=== PATIENT | male | born 1950 | race Caucasian/White ===

== ENCOUNTER 2020-04-30 06:25 | Day surgery (SDC) | payer MEDICARE, SELFPAY ==
[2020-04-22 16:07] VITALS: BMI 27.2
--- NOTE | 2020-04-23 13:11 | HO.ANESPROP2 ---
Documented by User: Yoli Bolanos 04/30/20 15:34 HPI - Anesthesia Eval Consult details Narrative: 69yo M for [facility] End[facility] Past Medical History Medical History LOVE (acute kidney injury) Anemia Roberts esophagus Chronic kidney disease Depression Dialysis patient Elevated cholesterol GERD (gastroesophageal reflux disease) HTN (hypertension) Hydronephrosis Surgical History Surgical History Hx of colonoscopy Hx of endoscopy Social History Social History Are you a primary child care centre manager to a significant other at home: No Do you presently have visiting nurse or other home services: No Smoking Status: Former smoker Smoking Quit Date: 11 years ago Second Hand Smoke Exposure: No Use of substances other than those prescribed or required for medical reasons: No Have you been hit, kicked, punched, or otherwise hurt by someone within the past year? If so, by whom?: No Advance Directives: No Advance Directives Information Provided: No Advance Directives on File: No Recently lost weight without trying: No Meds Allergies Allergy/AdvReac Type Severity Reaction Status Date / Time clindamycin AdvReac Nausea and Verified 04/22/20 14:18 Vomiting Home Medications Medication Instructions Recorded Confirmed Type albuterol sulfate [ProAir HFA] 2 puff INHALATION Q6H PRN 04/22/20 04/22/20 History amlodipine 1 tab PO BEDTIME 04/22/20 04/22/20 History atorvastatin 1 tab PO DAILY 04/22/20 04/22/20 History carvedilol 1 tab PO BID 04/22/20 04/22/20 History clonazepam 1 tab PO BEDTIME PRN 04/22/20 04/22/20 History famotidine 1 tab PO BID 04/22/20 04/22/20 History mupirocin TOPICAL DAILY 04/22/20 History prednisone 5 mg PO DAILY 04/22/20 04/22/20 History sevelamer carbonate 2 tab PO TID 04/22/20 04/22/20 History torsemide 1 tab PO DAILY 04/22/20 04/22/20 History Exam Exam Date and Time: April 23, 2020 1311 Height,Weight and Vital Signs: Height 5 ft 10 in Weight 86.183 kg Pertinent Lab Results Pertinent Lab Results: Laboratory Tests 11/30/19 08:42 WBC 10.0 Hgb 8.1 L Hct 25.1 L Plt Count 236 Assessment and Plan Assessment Anesthesia Assessment: Chart Reviewed Documented by User: Katherine Rodriges 05/01/20 08:04 PMFSH Past Medical History Medical History LOVE (acute kidney injury) Anemia Roberts esophagus Chronic kidney disease Depression Dialysis patient Elevated cholesterol GERD (gastroesophageal reflux disease) HTN (hypertension) Hydronephrosis Surgical History Surgical History Hx of colonoscopy Hx of endoscopy Social History Social History Are you a primary child care centre manager to a significant other at home: No Do you presently have visiting nurse or other home services: No Smoking Status: Former smoker Smoking Quit Date: 11 years ago Second Hand Smoke Exposure: No Use of substances other than those prescribed or required for medical reasons: No Have you been hit, kicked, punched, or otherwise hurt by someone within the past year? If so, by whom?: No Advance Directives: No Advance Directives Information Provided: No Advance Directives on File: No Recently lost weight without trying: No Meds Allergies Allergy/AdvReac Type Severity Reaction Status Date / Time clindamycin AdvReac Nausea and Verified 04/22/20 14:18 Vomiting Home Medications Medication Instructions Recorded Confirmed Type albuterol sulfate [ProAir HFA] 2 puff INHALATION Q6H PRN 04/22/20 04/22/20 History amlodipine 1 tab PO BEDTIME 04/22/20 04/22/20 History atorvastatin 1 tab PO DAILY 04/22/20 04/22/20 History carvedilol 1 tab PO BID 04/22/20 04/22/20 History clonazepam 1 tab PO BEDTIME PRN 04/22/20 04/22/20 History famotidine 1 tab PO BID 04/22/20 04/22/20 History mupirocin TOPICAL DAILY 04/22/20 History prednisone 5 mg PO DAILY 04/22/20 04/22/20 History sevelamer carbonate 2 tab PO TID 04/22/20 04/22/20 History torsemide 1 tab PO DAILY 04/22/20 04/22/20 History Exam Airway Mallampati Class: II Heart: RRR Lungs: CTA Assessment and Plan Assessment Anesthesia Assessment: Anesthesia Plan Discussed and Chart Reviewed Final Anesthetic Review NPO: Yes ASA Class: III Final Preanesthetic Review: Meds/Allgs Chart Reviewed, Consent Obtained/Reviewed and Anes Risks/Benef Reviewed Anesthetic Plan Anesthetic Plan: MAC: Disposition: Standard PACU
[2020-04-30 06:43] VITALS: BP 135/81; PULSE 77; RESP 18; TEMP 36.1; O2SAT 97
[2020-04-30] MEDS: 0.9 % Sodium Chloride 1,000 ML 50 ML IVCONT (06:56)
--- NOTE | 2020-04-30 07:26 | HO.ANESPROP2 ---
FORMERLY [facility], 1928–1983 Past Medical History Medical History LOVE (acute kidney injury) Anemia Roberts esophagus Chronic kidney disease Depression Dialysis patient Elevated cholesterol GERD (gastroesophageal reflux disease) HTN (hypertension) Hydronephrosis Surgical History Surgical History Hx of colonoscopy Hx of endoscopy Social History Social History Are you a primary care assistant to a significant other at home: No Do you presently have visiting nurse or other home services: No Smoking Status: Former smoker Smoking Quit Date: 11 years ago Second Hand Smoke Exposure: No Use of substances other than those prescribed or required for medical reasons: No Have you been hit, kicked, punched, or otherwise hurt by someone within the past year? If so, by whom?: No Advance Directives: No Advance Directives Information Provided: No Advance Directives on File: No Recently lost weight without trying: No Meds Allergies Allergy/AdvReac Type Severity Reaction Status Date / Time clindamycin AdvReac Nausea and Verified 04/22/20 14:18 Vomiting Home Medications Medication Instructions Recorded Confirmed Type albuterol sulfate [ProAir HFA] 2 puff INHALATION Q6H PRN 04/22/20 04/22/20 History amlodipine 1 tab PO BEDTIME 04/22/20 04/22/20 History atorvastatin 1 tab PO DAILY 04/22/20 04/22/20 History carvedilol 1 tab PO BID 04/22/20 04/22/20 History clonazepam 1 tab PO BEDTIME PRN 04/22/20 04/22/20 History famotidine 1 tab PO BID 04/22/20 04/22/20 History mupirocin TOPICAL DAILY 04/22/20 History prednisone 5 mg PO DAILY 04/22/20 04/22/20 History sevelamer carbonate 2 tab PO TID 04/22/20 04/22/20 History torsemide 1 tab PO DAILY 04/22/20 04/22/20 History Exam Exam Date and Time: April 30, 2020 0726 Height,Weight and Vital Signs: Height 5 ft 10 in Weight 86.183 kg Last Vital Signs Temp 96.9 F 04/30/20 06:43 Pulse 77 04/30/20 06:43 Resp 18 04/30/20 06:43 BP 135/81 04/30/20 06:43 Pulse Ox 97 04/30/20 06:43 Airway Mallampati Class: II TM Dist: >3cm Neck ROM: Full Heart: RRR Lungs: CTA Assessment and Plan Assessment Anesthesia Assessment: Anesthesia Plan Discussed and Chart Reviewed Final Anesthetic Review NPO: Yes ASA Class: III Final Preanesthetic Review: Meds/Allgs Chart Reviewed, Consent Obtained/Reviewed and Anes Risks/Benef Reviewed Patient Risk: Intermediate Procedure Risk: Intermediate Anesthetic Plan Anesthetic Plan: MAC: Disposition: Standard PACU
[2020-04-30 07:27] LABS: Anion Gap 14 (12-20); Carbon Dioxide 25 mmol/L (22-29); Chloride 105 mmol/L (96-108); Sodium 140 mmol/L (135-145)
--- NOTE | 2020-04-30 07:34 | MHC.SHP ---
Pre-Procedural Eval Section B Chief Complaint: Fecal Abnormalities Details of Present Illness: See H&P no changes Relevant Family History (Specify if Yes): No Relevant Social History: None Present Medications: see Short Stay Collaborative assessment Medical History: No relevant PMH (see H&P no changes) History of Previous Operations: No relevant previous surgery Allergies: Allergies Allergy/AdvReac Type Severity Reaction Status Date / Time clindamycin AdvReac Nausea and Verified 04/22/20 14:18 Vomiting Review of Systems Sugical H&P ROS: Negative: Constitution, Cardiovascular, Respiratory, Neurological, Psychiatric, Hem-Onc, Allergic/Immunologic, Gastrointestinal, Genitourinary, Musculoskeletal, Integumentary, Endocrine and Eyes/Ears/Nose/Throat Exam Surgical H&P Exam: Normal: HEENT, Normal: Heart, Normal: Lungs, Normal: Extremities, Normal: Abdomen, Normal: Skin and Normal: Neurological Plan Diagnosis/Plan: Unchanged I have reviewed the history and physical and performed a pertinent physical examination on my patient. No changes have occurred unless specified.
[2020-04-30 08:18] VITALS: BP 85/54; PULSE 72; RESP 16; TEMP 36.1; O2SAT 97
--- NOTE | 2020-04-30 08:22 | PM.OP ---
Brief Operative Note Date of Service: 04/30/20 Pre-op diagnosis: abnormal findings in stool Post-op diagnosis: same (barretts esophagus, colon polyps) Procedure: EGD colonoscopy Surgeon: Galo Pang Anesthesia: MAC Estimated blood loss (mL): 2 Pathology: other (bxs egj, esophagus 38 cm, polyp 65,60 and 30 cm) Condition: stable Disposition: PACU
[2020-04-30 08:33] VITALS: BP 109/67; PULSE 73; RESP 18; TEMP 36.1; O2SAT 96
--- NOTE | 2020-04-30 09:01 | OP_ITS ---
SURGEON: Galo Pang MD INDICATIONS: 1. Abnormal findings in the stool. 2. Roberts's esophagus. PREOPERATIVE DIAGNOSIS: POSTOPERATIVE DIAGNOSIS: PROCEDURE PERFORMED: ESTIMATED BLOOD LOSS: COMPLICATIONS: ANESTHESIA: ASSISTANTS: SPECIMENS: PROCEDURES PERFORMED: 1. Upper endoscopy with biopsy. 2. Colonoscopy to the terminal ileum with biopsy and snare polypectomy. MEDICATIONS: Monitored anesthesia care. DESCRIPTION OF PROCEDURE: History and physical performed. The risks and benefits of the procedure were explained to the patient. Informed consent was obtained. The patient is placed in the left lateral decubitus position. The Olympus video gastroscope was introduced into the esophagus, stomach, and duodenum. Examination was performed. The scope was removed. He tolerated the procedure well and was repositioned for colonoscopy. A digital rectal exam was performed and was found to be normal. The Olympus pediatric video colonoscope was introduced into the rectum and advanced to the cecum without difficulty. The cecum was identified by transillumination, palpation, and identification of ileocecal valve. Examination was performed. The scope was removed. He tolerated both procedures well and was returned to recovery area in stable condition. FINDINGS: UPPER ENDOSCOPY: Esophagus: There was a small area of Roberts's esophagus extending from the EG junction up to about 38 cm. Biopsies were obtained from the EG junction and at 38 cm. There were no raised areas or ulcerated areas. There was a small hiatal hernia. Stomach: The stomach showed no evidence of masses, ulcers, or polyps. Antral biopsies were obtained to rule out H. pylori. Duodenum: The bulb and second portion were normal. COLONOSCOPY: The terminal ileum was normal. The quality of the prep was good. Three polyps were identified and removed. The first with biopsy forceps, located at 65 cm. A second with a cold snare at 60 cm and the third at 30 cm with a cold snare. All measured less than 10 mm. There was scattered diverticulosis throughout the colon. Retroflexed examination showed small internal hemorrhoids. IMPRESSION: 1. Roberts's esophagus. 2. Colon polyps. RECOMMENDATION: Follow up biopsy results. MD CODY Quiles/ELMER / [id number] MTDD
== END 2020-04-30 09:23 | disposition home or self-care (01) ==
PROVIDERS: Nurse Practitioner; PCP Nurse Practitioner Family; Visit Provider Internal Medicine Gastroenterology
PROC: (CPT 45385; principal; 2020-04-30 07:30)
DX: R19.5 Other fecal abnormalities (principal); D12.4 Benign neoplasm of descending colon; K63.5 Polyp of colon; K57.30 Diverticulosis of large intestine without perforation or abscess without bleeding; K64.8 Other hemorrhoids; K22.70 Barrett's esophagus without dysplasia; K44.9 Diaphragmatic hernia without obstruction or gangrene; K21.9 Gastro-esophageal reflux disease without esophagitis; D64.9 Anemia, unspecified; I12.0 Hypertensive chronic kidney disease with stage 5 chronic kidney disease or end stage renal disease; N18.5 Chronic kidney disease, stage 5; Z99.2 Dependence on renal dialysis; F32.9 Major depressive disorder, single episode, unspecified; J44.9 Chronic obstructive pulmonary disease, unspecified; Z79.899 Other long term (current) drug therapy; Z79.52 Long term (current) use of systemic steroids; Z87.891 Personal history of nicotine dependence
CPT/HCPCS: 45385; 45380; 43239; 36415; 80051; 88305; 88342

== ENCOUNTER 2020-07-05 11:51 | Outpatient (REF) | payer MEDICARE, SELFPAY ==
[2020-07-09 05:56] LABS: Mumps Virus IgG Antibody >300.00 AU/mL; Rubella IgG Antibody <0.90 Index; Rubeola IgG (Measles) >300.00 AU/mL
== END 2020-07-05 11:52 | disposition home or self-care (01) ==
LOC: HO.HMGCLDS 11:51
PROVIDERS: PCP Nurse Practitioner Family; Visit Provider Hospitalist
DX: N18.9 Chronic kidney disease, unspecified (principal)
CPT/HCPCS: 36415; 86735; 86762; 86765

== ENCOUNTER 2020-09-09 12:46 | Emergency (ER) | payer MEDICARE, SELFPAY ==
--- NOTE | ~2020-09-09 | US_ITS ---
EXAMINATION: US SCROTUM CLINICAL INFORMATION: Swelling. COMPARISON: None TECHNIQUE: A sonogram of the scrotum was performed assessing la-scale appearance and color Doppler flow. Spectral Doppler analysis of the arterial and venous flow were performed in the testes bilaterally. FINDINGS: RIGHT: Right testicle measures 3.7 x 2.5 x 2.9 cm, volume 14 mL. No focal testicular parenchymal lesions are visualized. Spectral Doppler analysis of the arterial and venous flow is normal in the right testis. Right epididymal head is normal in size. There is a 5 mm cyst in the epididymal head and a 8 x 4 x 4 mm cyst in the epididymal body. There is a right hydrocele. There is echogenic soft tissue seen in the right scrotum questionable for a scrotal hernia. No right varicocele is seen. Right epididymal Doppler flow is normal. There is diffuse scrotal skin thickening. LEFT: Left testicle measures 4 x 2.1 x 2.6 cm, volume 11 mL. No focal testicular parenchymal lesions are visualized. Spectral Doppler analysis of the arterial and venous flow is normal in the left testis. Left epididymal head is normal in size. There are left epididymal head cysts measuring 4 x 7 x 4 mm and 6 x 7 x 5 mm. No left varicocele is seen. There is a small left hydrocele. There is heterogeneous partially hypoechoic partially hyperechoic soft tissue in the left scrotal sac questionable for a hernia. Left epididymal Doppler flow is normal. US/US scrotum IMPRESSION: Question bilateral scrotal hernias. There is marked right scrotal skin thickening. Bilateral epididymal cysts. Moderate to large right hydrocele and small left hydrocele.
--- NOTE | ~2020-09-09 | US_ITS ---
EXAMINATION: US SCROTUM CLINICAL INFORMATION: Swelling. COMPARISON: None TECHNIQUE: A sonogram of the scrotum was performed assessing la-scale appearance and color Doppler flow. Spectral Doppler analysis of the arterial and venous flow were performed in the testes bilaterally. FINDINGS: RIGHT: Right testicle measures 3.7 x 2.5 x 2.9 cm, volume 14 mL. No focal testicular parenchymal lesions are visualized. Spectral Doppler analysis of the arterial and venous flow is normal in the right testis. Right epididymal head is normal in size. There is a 5 mm cyst in the epididymal head and a 8 x 4 x 4 mm cyst in the epididymal body. There is a right hydrocele. There is echogenic soft tissue seen in the right scrotum questionable for a scrotal hernia. No right varicocele is seen. Right epididymal Doppler flow is normal. There is diffuse scrotal skin thickening. LEFT: Left testicle measures 4 x 2.1 x 2.6 cm, volume 11 mL. No focal testicular parenchymal lesions are visualized. Spectral Doppler analysis of the arterial and venous flow is normal in the left testis. Left epididymal head is normal in size. There are left epididymal head cysts measuring 4 x 7 x 4 mm and 6 x 7 x 5 mm. No left varicocele is seen. There is a small left hydrocele. There is heterogeneous partially hypoechoic partially hyperechoic soft tissue in the left scrotal sac questionable for a hernia. Left epididymal Doppler flow is normal. US/US scrotum doppler IMPRESSION: Question bilateral scrotal hernias. There is marked right scrotal skin thickening. Bilateral epididymal cysts. Moderate to large right hydrocele and small left hydrocele.
[2020-09-09 12:52] VITALS: BP 121/56; PULSE 77; RESP 18; TEMP 36.6; O2SAT 98; BMI 28.7
--- NOTE | 2020-09-09 14:07 | ED_ITS ---
HPI - Male Genitourinary General Chief complaint: Urogenital-Male Stated complaint: enlarged scrotum Time Seen by Provider: 09/09/20 13:03 Source: patient Mode of arrival: ambulatory Limitations: no limitations History of Present Illness HPI Narrative: 69 y/o male with history of ESRD on peritoneal dialysis since Mar 2020, anemia of chronic disease who presents to the ED with acute onset of scrotal swelling that started this morning after he sneezed. At the time he had pain in the right sided of his scrotum but it is gone. It occurred when he had already drained the peritneal fluid from his abdomen. He states his scrotum is about 8x it's normal size. He has not urinated since the swelling started but states he usually only urinates 2-3 times per day. No skin changes. No pain at this time. Complaint: testicle swelling Onset (ago): hour(s) Duration: constant Location: right testicle and left testicle Severity: moderate Severity scale (1-10): 1 Quality: aching Relieving factors: none Exacerbating factors: palpation Associated symptoms: Reports swelling Related Data Sexually active: No Home Medications Medication Instructions Recorded Confirmed albuterol sulfate [ProAir HFA] 2 puff INHALATION Q6H PRN 04/22/20 04/22/20 amlodipine 1 tab PO BEDTIME 04/22/20 09/09/20 atorvastatin 1 tab PO DAILY 04/22/20 04/22/20 carvedilol 1 tab PO BID 04/22/20 09/09/20 clonazepam 1 tab PO BEDTIME PRN 04/22/20 04/22/20 famotidine 1 tab PO BID 04/22/20 04/22/20 mupirocin TOPICAL DAILY 04/22/20 prednisone 5 mg PO DAILY 04/22/20 04/22/20 sevelamer carbonate 2 tab PO TID 04/22/20 04/22/20 torsemide 1 tab PO DAILY 04/22/20 04/22/20 carvedilol 12.5 mg tablet 12.5 mg PO BID 09/09/20 09/09/20 sulfamethoxazole 400 1 tab PO DAILY 09/09/20 09/09/20 mg-trimethoprim 80 mg tablet vitamin B complex-vitamin C-folic 1 tab PO DAILY 09/09/20 09/09/20 acid 0.8 mg tablet Allergies Allergy/AdvReac Type Severity Reaction Status Date / Time clindamycin AdvReac Nausea and Verified 09/09/20 12:52 Vomiting Review of Systems Review of Systems: Constitutional: No Fever, No Chills Gastrointestinal: No Nausea, No Vomiting, No Diarrhea, No abdominal Pain Genitourinary: No Dysuria, No Urinary Frequency, No Hematuria, +scrotal swelling Musculoskeletal: No joint pain, No Myalgias Skin: No Skin Lesions, No rash Neuro: No Weakness, No Numbness, No Dizziness, No Headache Heme/Lymph: No Bruising, No Lymphadenopathy Endocrine: No Polyuria, No Polydipsia PMFSH Past Medical History Medical History LOVE (acute kidney injury) Anemia Roberts esophagus Chronic kidney disease Depression Dialysis patient Elevated cholesterol GERD (gastroesophageal reflux disease) HTN (hypertension) Hydronephrosis Surgical History Hx of colonoscopy Hx of endoscopy Social History Social History Smoking Status: Former smoker Second Hand Smoke Exposure: No Advance Directives: No Advance Directives Information Provided: Yes Physical Exam Vital Signs: Vital Signs: Last Vital Signs Temp 97.1 F 09/09/20 16:00 Pulse 71 09/09/20 16:00 Resp 16 09/09/20 16:00 BP 133/79 09/09/20 16:00 Pulse Ox 97 09/09/20 16:00 Body Mass Index 28.7 Appearance: Alert. Oriented X3. No acute distress. Eyes: Normal inspection. ENT: Pharynx normal. Neck: Normal inspection. Neck supple. CVS: Normal heart rate and rhythm. Pulses normal. Respiratory: No respiratory distress. Breath sounds normal. Abdomen: Soft and nontender. PD catheter in place. +BS x4 : significant scrotal edema, translucent, no erythema, mild right testicular tenderness and fullness. normal appearing penis. Skin: Skin warm and dry. Normal skin color. Normal skin turgor. No rashes. Extremities: No lower extremity edema. Neuro: Oriented X 3. No motor deficit. No sensory deficit. Course Course Course Narrative: 69 y/o male wtih hx ESRD on PD presents with acute onset of scrotal swelling after sneeze. Likely increased intraabdominal pressure caused peritoneal fluid/ascites to leak into inguinal canal into scrotum. Given fullness and pain initially, will get U/S for further assessment. Scrotum has been elevated. Pain comfortable. Reevaluation(s) Reevaluation #1: US showing Question bilateral scrotal hernias. There is marked right scrotal skin thickening. Bilateral epididymal cysts. Moderate to large right hydrocele and small left hydrocele. Case was d/w on-call hydrogen power plant manager at Dr. Ghosh's office in [place] - plan to STOP PD given concern of PD fluid tracking into hydrocele and making worse. He will be seen in the office tomorrow Surgeon and Dictaphone Mechanic will contact him. No need for urgent labs or HD. He still makes urine and is not fluid overloaded. Plan was d/w patient and he agrees with plan. He will f/u with his Dictaphone Mechanic and Surgeon tomorrow. Stable for d/c home. Discharge Plan Discharge Clinical Impression: Bilateral hydrocele Inguinal hernia Qualifiers: Obstruction and gangrene presence: without obstruction or gangrene Laterality: bilateral Recurrence: non-recurrent Qualified Code(s): K40.20 - Bilateral inguinal hernia, without obstruction or gangrene, not specified as recurrent Patient Disposition: Home, Self-Care Instructions: Hydrocele (ED), Inguinal Hernia (ED) Additional Instructions: Do not do peritoneal dialysis tonight. Dr. Ghosh and the surgeon's office is going to contact you to be seen in the office tomorrow. Elevate your scrotum as able. Avoid standing on your feet for long periods of time. If you have worsening pain, fever, chills, or any other concerning symptom come back to the ER for further evaluation. Prescriptions: No Action carvedilol 6.25 mg tablet 1 tab PO BID RF: 0 torsemide 20 mg tablet 1 tab PO DAILY RF: 0 atorvastatin 10 mg tablet 1 tab PO DAILY RF: 0 clonazepam 0.5 mg tablet 1 tab PO BEDTIME PRN (Reason: Anxiety) RF: 0 prednisone 5 mg Tablet 5 mg PO DAILY RF: 0 famotidine 20 mg tablet 1 tab PO BID RF: 0 amlodipine 10 mg tablet 1 tab PO BEDTIME RF: 0 mupirocin 2 % ointment topical DAILY RF: 0 albuterol sulfate [ProAir HFA] 90 mcg/actuation Hfa Aerosol Inhaler 2 puff INHALATION Q6H PRN (Reason: Wheezing) RF: 0 sevelamer carbonate 800 mg tablet 2 tab PO TID RF: 0 sulfamethoxazole-trimethoprim 400-80 mg tablet 1 tab PO DAILY RF: 0 Nephro-Chirag 0.8 mg tablet 1 tab PO DAILY RF: 0 carvedilol 12.5 mg tablet 12.5 mg PO BID RF: 0 Interventions: ED Discharge Assessment Last Done: 09/09/20 17:11 Discharge Date/Time: 09/09/20 17:14
[2020-09-09 16:00] VITALS: BP 133/79; PULSE 71; RESP 16; TEMP 36.2; O2SAT 97
== END 2020-09-09 17:14 | disposition home or self-care (01) ==
PROVIDERS: Emergency Provider Emergency Medicine; PCP Nurse Practitioner Family
DX: N43.3 Hydrocele, unspecified (principal); K40.20 Bilateral inguinal hernia, without obstruction or gangrene, not specified as recurrent; N50.89 Other specified disorders of the male genital organs; I12.0 Hypertensive chronic kidney disease with stage 5 chronic kidney disease or end stage renal disease; N18.6 End stage renal disease; Z87.891 Personal history of nicotine dependence; Z79.899 Other long term (current) drug therapy
CPT/HCPCS: 76870; 93975; 99284

== ENCOUNTER → 2021-07-22 11:08 | Outpatient (BNVA) | payer SELFPAY | PROVIDERS: PCP Nurse Practitioner Family; Visit Provider Internal Medicine | DX: Z02.79 Encounter for issue of other medical certificate (principal) ==

== ENCOUNTER 2021-10-06 08:54 | Outpatient (REF) | payer MEDICARE, SELFPAY ==
[2021-10-06 13:29] LABS: Alanine Aminotransferase 19 U/L (0-40); Albumin Level 4.1 g/dL (3.5-5.0); Alkaline Phosphatase 81 U/L (39-117); Anion Gap 13 (12-20); Aspartate Amino Transferase 23 U/L (5-37); Bilirubin Total 0.9 mg/dL (0.0-1.0); Blood Urea Nitrogen 37 mg/dL (9-16); Calcium 9.1 mg/dL (8.4-10.2); Carbon Dioxide 23 mmol/L (22-29); Chloride 107 mmol/L (96-108); Cholesterol 172 mg/dL; Estimated Glomerular Filt Rate 34; Glucose Fasting 89 mg/dL (60-99); HDL Cholesterol 35 mg/dL; LDL Cholesterol Calculated 121 mg/dl; Sodium 138 mmol/L (135-145); Total Protein 7.2 g/dL (6.5-8.0); Triglycerides 84 mg/dL
[2021-10-06 13:29] LABS: Appearance Urine CLEAR; Color Urine YELLOW; Glucose Urine UA NEG (NEG); Leukocyte Esterase Urine NEG (NEG); Nitrite Urine NEG (NEG); Specific Gravity - Urine <= 1.005 (1.005-1.025); Urine Blood NEG (NEG); Urine Ketones NEG (NEG); Urine Protein NEG (NEG-TRACE)
[2021-10-06 13:30] LABS: Prostate Specific Antigen Scr 0.91 ng/mL (<0.05-4.0); TSH reflex Free T4 1.31 uIU/mL (0.32-4.0)
== END 2021-10-06 08:55 | disposition home or self-care (01) ==
LOC: HO.HMGCLDS 08:54
PROVIDERS: PCP Nurse Practitioner Family; Visit Provider Nurse Practitioner Family
DX: E78.5 Hyperlipidemia, unspecified (principal); Z12.5 Encounter for screening for malignant neoplasm of prostate
CPT/HCPCS: 36415; 80053; 80061; 81003; 84153; 84443

== ENCOUNTER 2021-10-14 11:37 | Outpatient (REF) | payer MEDICARE, SELFPAY ==
--- NOTE | ~2021-10-14 | XR_ITS ---
EXAMINATION: XR CERVICAL SPINE CLINICAL INFORMATION: Cervicalgia COMPARISON: None TECHNIQUE: 4 views of the cervical spine were obtained. FINDINGS: No acute fracture or traumatic malalignment. Vertebral body heights maintained. Near-complete obliteration of the disc spaces at C5-6, C6-7, with accompanying endplate osteophytes. There is facet arthropathy throughout the cervical spine. Paraspinal soft tissues unremarkable. XR/XR cervical spine 3V IMPRESSION: No acute findings. Cervical spondylosis as described
== END 2021-10-14 11:38 | disposition home or self-care (01) ==
LOC: HO.HMGCX 11:37
PROVIDERS: PCP Nurse Practitioner Family; Visit Provider Nurse Practitioner Family
DX: M54.2 Cervicalgia (principal)
CPT/HCPCS: 72040

== ENCOUNTER 2022-01-23 11:38 | Outpatient (REF) | payer MEDICARE, SELFPAY | END 2022-01-23 11:39 | disposition home or self-care (01) | LOC: HO.LNP 11:38 | PROVIDERS: Visit Provider Nurse Practitioner Family | DX: Z13.89 Encounter for screening for other disorder (principal) ==

== ENCOUNTER → 2022-03-03 13:09 | Outpatient (BNVA) | payer MEDICARE, SELFPAY | PROVIDERS: PCP Nurse Practitioner Family; Visit Provider Orthopaedic Surgery | DX: M72.0 Palmar fascial fibromatosis [Dupuytren] (principal) | CPT/HCPCS: 99202 ==

== ENCOUNTER 2022-04-06 13:00 | Outpatient (RCR) | payer MEDICARE, SELFPAY ==
--- NOTE | 2022-02-10 13:54 | MHC.PT.EP ---
[facility] Office [place] Office [place] Office [address] [phone] F: [phone] F: [phone] F: [phone] F: [phone] Physical Therapy Plan of Care Date of Evaluation: Date of Surgery: Diagnosis: cervicalgia Assessment: Patient is a 71 year old R handed male who presents with s/s consistent with cervicalgia, neck pain. 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 Patient past medical history includes a kidney transplant about 1 year ago in addition to PE. Current impairments include pain, posture, ROM, strength, activity tolerance and functional mobility. Functional limitations include decreased ability to sleep, drive, lift, carry, read and watch TV. Patient is motivated with good rehab potential. Skilled PT will address impairments and functional limitations in order to achieve goals. Frequency and Duration: The patient will be seen 2x/week for 5 weeks Short Term Goals: I with HEP - 2 weeks AROM rotation to 60 b/l - 3 weeks Reduced pain with sleep and driving from 10 to /10 - 3 weeks Administrative Clerk Goals: NPDI 10% or less - 5 weeks Cervical rotation 66 and pain free b/l - 5 weeks Pain with all activities - 2/10 or less - 5 weeks Treatment Plan: Modalities to reduce pain, spasms and effusion. Manual therapy to restore motion and function. Therapeutic exercise to improve strength and flexibility. Neuromuscular re-education for posture and balance. Therapeutic activities to return to functional activities of daily living. Electronically signed by: Félix Saba, PT Please sign and return to therapist. Thank you for your referral.
--- NOTE | 2022-07-03 08:19 | MHC.PT.DC ---
[facility] [place] [facility] [place] [facility] [place] [facility] [address] Tia Massey [address] [phone] F: [phone] F: [phone] F: [phone] F: [phone] Physical Therapy Discharge Report Diagnosis: cervicalgia Date of Surgery: Date of Evaluation: 02/10/22 Date of Discharge: 05/19/22 Treatments to Date: 6 Cancellations to Date: No Shows to Date: Discharge Status: Improved Function Independent with HEP Discharge Summary: Pt AROM rotation to 68 degress b/l pain free. Pain with ADLs 2/10. NPDI 8%. met or exceeded all goals and appropriate to d/c to HEP at this time. Electronically signed by: Félix Saba PT Please sign and return to therapist. Thank you for your referral.
== END 2022-07-03 08:19 | disposition home or self-care (01) ==
LOC: HO.PTCHIC 13:00
PROVIDERS: PCP Nurse Practitioner Family; Visit Provider Nurse Practitioner Family
DX: M54.2 Cervicalgia (principal)
CPT/HCPCS: 97110; 97140; 97163

== ENCOUNTER 2022-04-17 09:48 | Outpatient (REF) | payer MEDICARE, SELFPAY ==
[2022-04-17 11:22] LABS: MANUAL DIFF FLAG NO
[2022-04-17 11:27] LABS: Basophils Percent Auto 0.5 % (0-2); Eosinophils Absolute Auto 0.4 X10*3/uL (0.0-0.4); Eosinophils Percent Auto 4.8 % (0-4); Hematocrit 37.6 % (42.0-52.0); Hemoglobin 12.1 g/dl (14.0-18.0); Imm Gran Abs Auto 0.03 X10*3/uL (0.00-0.03); Imm Gran Pct Auto 0.4 % (0.0-0.4); Lymphocytes Percent Auto 26.3 % (20-40); Mean Corpuscular HGB Conc 32.2 g/dl (31.0-36.0); Mean Corpuscular Hemoglobin 30.6 pg (27.0-33.0); Mean Corpuscular Volume 95.2 fL (80.0-98.0); Mean Platelet Volume 9.7 fL (9.4-12.4); Monocytes Percent Auto 13.2 % (2-11); Neutrophils Absolute Auto 4.2 x10*3/uL (2.0-8.3); Neutrophils Percent Auto 54.8 % (45-73); Platelet Count 319 X10*3/uL (160-400); Red Blood Count 3.95 X10*6/uL (4.60-5.80); Red Cell Distribution Width 14.1 % (11.0-16.0); White Blood Count 7.7 X10*3/uL (4.8-10.8)
[2022-04-17 11:30] LABS: Prothrombin Time 11.6 SEC (10.0-13.1)
[2022-04-17 11:31] LABS: Appearance Urine Clear; Color Urine Yellow; Glucose Urine UA Negative (Negative); Leukocyte Esterase Urine Negative (Negative); Nitrite Urine Negative (Negative); PH 5.5 (5.0-9.0); Specific Gravity - Urine 1.015 (1.005-1.025); Urine Blood Negative (Negative); Urine Ketones Negative (Negative); Urine Protein Negative (Neg-Trace)
[2022-04-17 11:33] LABS: Partial Thromboplastin Time 28.3 SEC (26.0-36.4)
[2022-04-17 12:34] LABS: Alanine Aminotransferase 10 U/L (0-40); Albumin Level 3.8 g/dL (3.5-5.0); Alkaline Phosphatase 75 U/L (39-117); Anion Gap 13 (12-20); Aspartate Amino Transferase 14 U/L (5-37); Bilirubin Total 0.8 mg/dL (0.0-1.0); Blood Urea Nitrogen 29 mg/dL (9-16); Calcium 9.4 mg/dL (8.4-10.2); Carbon Dioxide 24 mmol/L (22-29); Chloride 109 mmol/L (96-108); Cholesterol 170 mg/dL; Estimated Glomerular Filt Rate 39; Glucose Fasting 108 mg/dL (60-99); Glucose Random 107 mg/dL (60-115); HDL Cholesterol 41 mg/dL; LDL Cholesterol Calculated 113 mg/dl; Potassium 5.5 mmol/L (3.3-5.1); Sodium 140 mmol/L (135-145); TSH reflex Free T4 1.44 uIU/mL (0.32-4.0); Total Protein 6.7 g/dL (6.5-8.0); Triglycerides 84 mg/dL
== END 2022-04-17 09:49 | disposition home or self-care (01) ==
LOC: HO.HMGCLDS 09:48
PROVIDERS: PCP Nurse Practitioner Family; Visit Provider Nurse Practitioner Family
DX: Z01.818 Encounter for other preprocedural examination (principal); D63.1 Anemia in chronic kidney disease; N18.9 Chronic kidney disease, unspecified; M72.0 Palmar fascial fibromatosis [Dupuytren]; E78.5 Hyperlipidemia, unspecified
CPT/HCPCS: 36415; 80053; 80061; 81003; 84443; 85025; 85610; 85730

== ENCOUNTER → 2022-04-21 11:28 | Outpatient (BNVA) | payer MEDICARE, SELFPAY | PROVIDERS: PCP Nurse Practitioner Family; Visit Provider Orthopaedic Surgery | DX: M72.0 Palmar fascial fibromatosis [Dupuytren] (principal) | CPT/HCPCS: 99212 ==

== ENCOUNTER 2022-04-23 07:15 | Day surgery (SDC) | payer MEDICARE, SELFPAY ==
[2022-04-16 10:05] VITALS: BMI 29.9
[2022-04-23] VITALS (7 sets, daily range): BP systolic 104–150; BP diastolic 72–84; PULSE 71–80; RESP 16–18; TEMP 36.1–36.6; O2SAT 95–100; BMI 28.3
[2022-04-23 07:48] LABS: Anion Gap 11 (12-20); Carbon Dioxide 24 mmol/L (22-29); Chloride 111 mmol/L (96-108); Potassium 5.1 mmol/L (3.3-5.1); Sodium 141 mmol/L (135-145)
[2022-04-23] MEDS: 0.9 % Sodium Chloride 1,000 ML 50 ML IVCONT (08:04)
--- NOTE | 2022-04-23 08:45 | P.CONAN_ITS ---
HPI - Anesthesia Eval Consult details Narrative: 71 yo male patient for Right small and ring fingers Dupuytren's contracture partial fasciectomy PMFSH Active Problems Active Problems: All Active Problems (Updated 04/23/22 @ 08:56 by Kirti Heath MD) Hyperkalemia (Acute) Anemia in chronic kidney disease (Acute) S/p renal transplant 2020 Scrotal edema (Acute) Encounter for annual wellness visit (AWV) in Medicare patient (Acute) Dyslipidemia (Acute) Screening PSA (prostate specific antigen) (Acute) Cervical pain (neck) (Acute) Dupuytren's contracture (Acute) Pre-op evaluation (Acute) Past Medical History Medical History LOVE (acute kidney injury) Anemia AV fistula Orberts esophagus Chronic kidney disease COPD (chronic obstructive pulmonary disease) Depression DVT (deep venous thrombosis) Elevated cholesterol ESRD (end stage renal disease) GERD (gastroesophageal reflux disease) HTN (hypertension) Hydronephrosis Personal history of immunosupression therapy Pulmonary embolism Family History Family history of problems with anesthesia: No Surgical History Surgical History H/O right inguinal hernia repair Hx of colonoscopy Hx of endoscopy Hx of foot surgery Hx of kidney transplant History of Problems with Anesthesia: No Social History Social History Housing: House Are you a primary laboratory animal care veterinarian to a significant other at home: No Do you presently have visiting nurse or other home services: No Patient Tobacco Use Status: Former Tobacco user Quit Date: age 58 Tobacco use type: Cigarette Years Smoked: 45 e-Cigarette/Vaping Use: Never Used Second Hand Smoke Exposure: No Use of substances other than those prescribed or required for medical reasons: No Have you been hit, kicked, punched, or otherwise hurt by someone within the past year? If so, by whom?: No Are you DNR?: Yes Advance Directives: No Advance Directives Information Provided: Yes (as above noted-will bring copy HCP/DNR DOS) Advance Directives on File: No Recently lost weight without trying: No Eating poorly because of decreased appetite: No Nutrition Risks: No Nutritional Risk Poor oral hygiene: No (has capped teeth) service: No Current occupational status: employed Current occupation: [employer] / left hand dominant Current occupational exposures/hazards: Yes Cognitive needs: No Hearing needs: No Vision needs: No Meds Allergies Allergy/AdvReac Type Severity Reaction Status Date / Time clindamycin AdvReac Nausea and Verified 04/21/22 11:37 Vomiting Active Medications: Current Medications Albuterol Sulfate (Albuterol Sulfate (0.083%) 2.5 Mg/3 Ml Vial.Neb) 2.5 mg INHALE ONCE PRN PRN Reason: Shortness of Breath/Wheezing Sodium Chloride (Ns) 1,000 mls @ 50 mls/hr IVCONT .Q20H ANANDA Last Admin: 04/23/22 08:04 Dose: 50 mls/hr Home Medications Medication Instructions Recorded Confirmed Last Taken Type albuterol sulfate 90 mcg/actuation 2 puff inhalation Q6H PRN Wheezing 04/22/20 04/16/22 04/23/22 History aerosol inhaler (ProAir HFA) ascorbate calcium (vitamin C) 500 500 mg PO BID 07/09/21 04/16/22 Unknown History mg tablet carvedilol 3.125 mg tablet 3.125 mg PO BID 07/09/21 04/16/22 04/23/22 History cholecalciferol (vitamin D3) 50 50 mcg PO 2XW 07/09/21 04/16/22 Unknown History mcg (2,000 unit) capsule pantoprazole 40 mg tablet,delayed 40 mg PO DAILY 07/09/21 04/16/22 04/23/22 History release sennosides 8.6 mg tablet (Senna 8.6 mg PO BEDTIME PRN Constipation 07/09/21 04/16/22 Unknown History Laxative) tacrolimus 0.5 mg capsule, 0.5 mg PO BID 07/09/21 04/23/22 04/23/22 History immediate-release tacrolimus 1 mg capsule, 2 mg PO BID 01/22/22 04/16/22 04/23/22 History immediate-release Exam Exam Date and Time: April 23, 2022 0845 Height,Weight and Vital Signs: Height 5 ft 10 in Weight 89.358 kg Last Vital Signs Temp 97.9 F 04/23/22 07:33 Pulse 80 04/23/22 07:33 Resp 18 04/23/22 07:33 BP 104/72 04/23/22 07:33 Pulse Ox 95 04/23/22 07:33 O2 Del Method 04/23/22 07:33 Pertinent Lab Results Pertinent Lab Results: Laboratory Tests 04/23/22 07:28 Sodium 141 Potassium 5.1 Chloride 111 H Carbon Dioxide 24 Anion Gap 11 L Airway Mallampati Class: II (Narrow arched palatr) TM Dist: >3cm Neck ROM: Full Loose/Missing/Broken Teeth: No (Caps intact. Denies broken, loose, missing teeth) Heart: RRR Lungs: CTAB Assessment and Plan Assessment Anesthesia Assessment: Anesthesia Plan Discussed and Chart Reviewed Final Anesthetic Review Family History of Problems with Anesthesia: No History of Problems with Anesthesia: No NPO: Yes ASA Class: III Final Preanesthetic Review: No Changes in Pt Med Stat, Meds/Allgs Chart Reviewed, Consent Obtained/Reviewed and Anes Risks/Benef Reviewed Patient Risk: Intermediate Procedure Risk: Low Assessment/Block/Sedation in SS: Assess/Block/Sedation-SS Anesthetic Plan Anesthetic Plan: GA Disposition: Standard PACU
--- NOTE | 2022-04-23 09:37 | MHC.SHP ---
Pre-Procedural Eval Section A Date of Service: 04/23/22 The patient is an INPATIENT: No Changes since office visit: No Cold of Flu in the past 2 weeks, No New Medical Problems, No Changes in Medication and No Patient answered all questions The History & Physical has been completed within 30 days and I have reviewed it.: Yes Section B Chief Complaint: Contracture, right hand,contracture right hand Allergies: Allergies Allergy/AdvReac Type Severity Reaction Status Date / Time clindamycin AdvReac Nausea and Verified 04/21/22 11:37 Vomiting Plan I have reviewed the history and physical and performed a pertinent physical examination on my patient. No changes have occurred unless specified. Time Spent With Patient Time: Total time managing care of this patient today ____ minutes.
--- NOTE | 2022-04-23 09:37 | W.PM.OPN ---
Operative Note Operative Note Date of Service: 04/23/22 Narrative: Preop diagnosis: 1. right small finger Dupuytren's contracture 2. Right ring finger Dupuytren's contracture Postop diagnosis: Same Procedure: 1. right small finger Partial Dupuytren's fasciectomy 2. Right ring finger partial Dupuytren's fasciectomy Surgeon: Vikki Martinez MD Anesthesia: General anesthesia plus regional block Findings: central Dupuytren's cords extending to both the ring and small fingers Implants: None Tourniquet time: 80 minutes EBL: 5.0 ml Specimen: right hand Dupuytren's cords sent to pathology Drains: None Complications: None Disposition: Brought to the recovery room in stable condition Plan: Follow-up in 10-14 days for wound check, suture removal and to check pathology OT appt on day of f/u to make a custom night spint and to begin OT Indications: The patient is a 71 year old man with Dupuytren's contractures involving the right small and ring fingers . The risks and benefits of operative treatment, including but not limited to risk of damage to blood vessels, nerves, tendons, infection, recurrence, persistent pain or numbness, incomplete resolution of preoperative symptoms, or need for further surgery were discussed with the patient and they wished to proceed with surgery. Procedure: Once consent was obtained patient was brought back to the operating suite and placed in the operating table in a supine position. . Perioperative antibiotics and anesthesia was administered by the anesthesia team. A tourniquet was applied to the proximal aspect of the right upper extremity and the limb was prepped and draped in a standard surgical fashion. The limb was elevated exsanguinated with Esmarch bandage and the tourniquet inflated to 250 mm of mercury for a total tourniquet time of 80 minutes. I made a Sue type incision extending along the Dupuytren's cord from the mid palm to the PIP flexion crease of the left ring finger. The Incision was made with a 15. Blade through the skin the subcutaneous tissues. I then carefully dissected down to the level of the Dupuytren's cord beginning at the proximal aspect of the incision. This was done using tenotomy and iris scissors. Care was taken to protect the nearby neurovascular structures. The Dupuytren's cord was cut at its proximal aspect using tenotomy scissors. It was then grasped with an Allis clamp. TheDupuytren's cord was then carefully dissected free in a proximal to distal direction using tenotomy scissors and again taking care to protect the nearby neurovascular structures. the cord extended distally attaching to the flexor tendon sheath skin and distal aspect of the proximal phalanx of the ring finger. The cord was carefully mobilized excised and placed on the back table to be sent for histopathology. The cord to the small finger was similarly excised in the mid palm. This was passed distally beneath a skin bridge to an incision that extended over the A1 helene area and the proximal and middle phalanxes of the small finger. There was a central cord that then became part of a more complex set of cords coming from the small finger abductor extending distally to the middle phalanx and flexor tendon sheath over the middle phalanx. The cord was carefully excised from the surrounding tissues using tenotomy and iris scissors with care being taken to protect the neurovascular structures. This was then placed on the back table to be sent for histopathology. Both the middle finger and ring fingers were brought into full extension at the MCP and PIP joints following our partial fasciectomies. At this point the tourniquet was deflated and hemostasis obtained with a brief period of local pressure . The Wounds were copiously irrigated with normal saline. the skin edges were reapproximated with 5-0 Prolene suture. The wound was infiltrated with some 0.5% plain ropivacaine for postop pain control and a sterile dressing and volar splint holding the small and ring fingers in extension was applied. The patient appears to have tolerated the procedure well and with no complications. All digits were well vascularized conclusion of the case.
--- NOTE | 2022-04-24 07:51 | HO.POSTANES ---
Post Anesthesia Evaluation Post Anesthesia Evaluation Anesthesia: General LMA Mental Status: Awake Pain Control: Satisfactory Nausea/Vomiting: None Hydration: Adequate Anesthesia-Related Issues: No Anes. Related Issues
== END 2022-04-23 13:26 | disposition home or self-care (01) ==
PROVIDERS: PCP Nurse Practitioner Family; Visit Provider Orthopaedic Surgery
PROC: (CPT 26045; principal; 2022-04-23 09:10)
DX: M72.0 Palmar fascial fibromatosis [Dupuytren] (principal); I12.9 Hypertensive chronic kidney disease with stage 1 through stage 4 chronic kidney disease, or unspecified chronic kidney disease; N18.9 Chronic kidney disease, unspecified; N17.9 Acute kidney failure, unspecified; Z94.0 Kidney transplant status; D64.9 Anemia, unspecified; Z88.1 Allergy status to other antibiotic agents; K22.70 Barrett's esophagus without dysplasia; J44.9 Chronic obstructive pulmonary disease, unspecified; Z79.899 Other long term (current) drug therapy; Z86.718 Personal history of other venous thrombosis and embolism; Z86.711 Personal history of pulmonary embolism; Z87.891 Personal history of nicotine dependence
CPT/HCPCS: 26123; 26125; 36415; 80051; 88304; J0690; J2250; J2795; J3010

== ENCOUNTER → 2022-05-06 08:41 | Outpatient (BNVA) | payer MEDICARE, SELFPAY | PROVIDERS: PCP Nurse Practitioner Family; Visit Provider Orthopaedic Surgery | DX: Z13.89 Encounter for screening for other disorder (principal) ==

== ENCOUNTER 2022-05-12 09:00 | Outpatient (RCR) | payer MEDICARE, SELFPAY ==
--- NOTE | 2022-05-06 11:34 | MHC.OT.EP ---
[address] [phone] Occupational Therapy Plan of Care Date of Evaluation: 05/06/22 Diagnosis: S/P right Dupuytrens fasciectomy Assessment: Talha is a 71 yo male with a complicated medical history now 13 days s/p right RF and SF Dupuytrens fasciectomy with mild swelling and mild digit stiffness. Pt will benefit from a night volar gutter digit extension orthosis to prevent joint contracture , ther ex to regain full AROM and pt ed on scar management I anticipate a short course of OT Frequency and Duration: The patient will be seen 1x wk x 2 wks Short Term Goals: Tolerated night hand based orthosis to digit extension Demo indep with ROM and scar management Demo digit flexion to DPC Demo digit extension to neutral Electron Beam Welder Goals: Same as luis Treatment Plan: Therapeutic Exercise Therapeutic Activity Home Exercise Program Splinting Patient Education Edema Control ADL Training Scar management training Electronically Signed By: Linda Cr OT CHT CLT Please Sign and return to therapist. Thank you once again for your referral.
--- NOTE | 2022-06-18 10:08 | MHC.OT.DC ---
[address] [phone] F: [phone] Occupational Therapy Discharge Note Provider: Vikki Martinez Diagnosis: S/P right Dupuytrens fasciectomy Date of Surgery: 04/23/22 Date of Evaluation: 05/06/22 Date of Discharge: 05/12/22 Treatments to Date: 2 Cancellations to Date: 0 No Shows to Date: 0 Discharge Status: Achieved Goals Improved Function Independent with HEP Discharge Summary: Goals met for digit flexion to DPC and digit ext to neutral He is indep with wearing a night ulnar hand extension orthosis with an elastomere scar pad He is indep with therapeutic ex and has begun gentle scar massage Goals met. Pt to follow up with Dr Martinez 06/03/22 Electronically Signed By: Linda Cr OT CHT CLT Reviewed/agree with student documentation: Therapist: Please Sign and return to therapist, thank you for your referral.
== END 2022-06-18 10:09 | disposition home or self-care (01) ==
LOC: HO.OT 09:00
PROVIDERS: PCP Nurse Practitioner Family; Visit Provider Orthopaedic Surgery
DX: M72.0 Palmar fascial fibromatosis [Dupuytren] (principal)
CPT/HCPCS: 29130; 97110; 97140; 97165; 97760

== ENCOUNTER → 2022-06-03 10:40 | Outpatient (BNVA) | payer MEDICARE, SELFPAY | PROVIDERS: PCP Nurse Practitioner Family; Visit Provider Orthopaedic Surgery | DX: M72.0 Palmar fascial fibromatosis [Dupuytren] (principal); R20.0 Anesthesia of skin | CPT/HCPCS: 99212 ==

== ENCOUNTER → 2022-07-07 10:38 | Outpatient (BNVA) | payer SELFPAY | PROVIDERS: PCP Nurse Practitioner Family; Visit Provider Internal Medicine | DX: Z02.79 Encounter for issue of other medical certificate (principal) ==

== ENCOUNTER 2022-08-19 12:56 | Outpatient (REF) | payer MEDICARE, SELFPAY ==
--- NOTE | 2022-08-19 09:15 | EMG_ITS ---
Please see scanned EMG / Nerve Conduction Report. MTDD
== END 2022-08-19 12:57 | disposition home or self-care (01) ==
LOC: HO.NEURO 12:56
PROVIDERS: PCP Nurse Practitioner Family; Visit Provider Orthopaedic Surgery
DX: R20.0 Anesthesia of skin (principal); R20.2 Paresthesia of skin
CPT/HCPCS: 95885; 95910

== ENCOUNTER 2024-02-17 14:55 | Outpatient (AMB) | payer MEDICARE, SELFPAY ==
[2024-02-17 15:01] VITALS: BP 130/72; PULSE 76; O2SAT 96; BMI 30.4
--- NOTE | 2024-02-17 15:01 | A.OFFPC_ITS ---
Vital Signs 02/17/24 15:01 Height 5 ft 10 in Weight 212 lb BMI 30.4 BP 130/72 Blood Pressure Location Rt brachial Position Sitting Pulse 76 Pulse Source Pulse Oximeter Pulse Oximetry (%) 96 Intake Visit Reasons: PE Intake Note: pt is here for PE Circuit Tester Required: No Accompanied by: Self / Same As Patient Allergies clindamycin Adverse Reaction (Verified 02/17/24 15:15) Nausea and Vomiting Medication List - Last Reconciled 02/17/24 by MANNY FinneganP- albuterol sulfate 90 mcg/actuation (ProAir HFA) 2 puffs inhalation Q6H PRN ascorbate calcium (vitamin C) 500 mg PO BID aspirin (Adult Aspirin Regimen) 81 mg PO DAILY carvedilol 3.125 mg PO BID cholecalciferol (vitamin D3) 50 mcg PO 2XW pantoprazole 40 mg PO DAILY sennosides (Senna Laxative) 8.6 mg PO BEDTIME PRN tacrolimus 5 mg PO DIRECTED Tobacco use date assessed: 02/17/24 Fall risk assessment: No Falls in past year Last assessed Fall Risk: 02/17/24 Dental Screening Dental Screen Date: 02/17/24 Did you have a dental visit in the last 12 months?: Yes Did you have a dental problem in the last 6 months where you did not have access to dental care?: No Was dental information given to patient?: Patient has dentist HPI PE HPI Details Pt is here for a PE. Will order labs. Colon screen is up to date. Due for PSA, will order. Denies dribbling with urination, weak stream, and frequent nocturia. Pt has a hx of bilat kidney transplant in January of 2021. He is following up with nephrology. Pt is also seeing vascular. Pt goes for low-dose lung CTs. Dyslipidemia: Will start atorvastatin 10mg. Pt has multiple skin lesions to his scalp and upper torso. Will refer to derm. PENDING SALE TO [facility] Medical History COPD (chronic obstructive pulmonary disease) AV fistula ESRD (end stage renal disease) Personal history of immunosupression therapy DVT (deep venous thrombosis) Pulmonary embolism Elevated cholesterol Anemia Roberts esophagus GERD (gastroesophageal reflux disease) Chronic kidney disease Hydronephrosis LOVE (acute kidney injury) HTN (hypertension) Depression Surgical History Hx of foot surgery Hx of kidney transplant H/O right inguinal hernia repair Hx of endoscopy Hx of colonoscopy Social History Housing: House Are you a primary healthcare management consultant to a significant other at home: No Do you presently have visiting nurse or other home services: No Patient Tobacco Use Status: Former Tobacco user Tobacco use type: Cigarette Years Smoked: 45 e-Cigarette/Vaping Use: Never Used Second Hand Smoke Exposure: No service: No Current occupational status: employed Current occupation: [employer] / left hand dominant Current occupational exposures/hazards: Yes Cognitive needs: No Hearing needs: No Vision needs: No Questionnaire PHQ-9 Over the last 2 weeks, how often have you been bothered by any of the following problems? 1. Little interest or pleasure in doing things: not at all 2. Feeling down, depressed, or hopeless: not at all 3. Trouble falling or staying asleep, or sleeping too much: not at all 4. Feeling tired or having little energy: not at all 5. Poor appetite or overeating: not at all 6. Feeling bad about yourself - or that you are a failure or have let yourself or your family down: not at all 7. Trouble concentrating on things, such as reading the newspaper or watching television: not at all 8. Moving or speaking so slowly that other people could have noticed. Or the opposite - being so fidgety or restless that you have been moving around a lot more than usual: not at all 9. Thoughts that you would be better off or of hurting yourself in some way: not at all Total score: 0 Depression Screening Interpretation: Negative Depression Screening Done: Yes 74898 - PHQ-9 Billing: Yes Source: Developed by Drs. Demarco Del Cid, Veronika Vanessa, Benjamín Valdez and colleagues, with an educational yrn from [employer]. Thrive Questionnaire Date Thrive assessed: 02/17/24 I am a: Patient What is your living situation today?: I have a steady place to live Within the past 12 months, did the food you bought not last and you didn't have the money to get more?: Never true Within the past 12 months, did you worry whether your food would run out before you got money to buy more?: Never true Do you have trouble paying for medicines?: No Do you have trouble getting transportation to medical appointments?: No Do you have trouble paying your heating and electricity bill?: No Do you have trouble taking care of your child, family member or friend?: No Do you have trouble with day-to-day activities such as bathing, preparing meals, shopping, managing finances, etc.?: No Are you currently unemployed and looking for a job?: Yes Are you interested in more education?: No Please select the resources that you would like help with: None Currently or been in a relationship where the following occur: I choose not to answer THRIVE Score: 0 AUDIT C Alcohol Use Questionnaire (AUDIT-C) 1. How often do you have a drink containing alcohol?: 2-4 times a month 2. How many drinks containing alcohol do you have on a typical day when you are drinking?: 1 or 2 3. How often do you have six or more drinks on one occasion?: Never Total Score: 2 Score Reviewed/Action Taken: Yes CYNDI-7 AMB Questionnaire CYNDI-7 Date CYNDI - 7 assessed: 02/17/24 Feeling nervous, anxious, or on edge: 0 = Not at all Not being able to stop or control worryin = Not at all Worrying too much about different things: 0 = Not at all Trouble relaxin = Not at all Being so restless that it is hard to sit still: 0 = Not at all Becoming easily annoyed or irritable: 0 = Not at all Feeling afraid as if something awful might happen: 0 = Not at all Total CYNDI-7 score (0-4 normal; 5-9 mild; 10-14 moderate; 15-21 severe): 0 Source: Developed by Drs. Demarco Del Cid, Veronika Vanessa, Benjamín Valdez and colleagues, with an educational yrn from [employer]. CYNDI-7 Assessment Billing CYNDI-7 Assessment Tool: CYNDI-7 Assessment 20894 Review of Systems Const Denies chills and Denies fever(s) Eyes Denies blurry vision ENT Denies vertigo, Denies dizziness and Denies sore throat Card Denies chest pain at rest, Denies chest pain with activity, Denies diaphoresis, Denies dyspnea and Denies dyspnea on exertion Resp Denies cough, Denies dyspnea, Denies dyspnea on exertion and Denies wheezing GI Denies abdominal pain, Denies melena, Denies hematochezia, Denies constipation, Denies diarrhea and Denies loose stools Denies hematuria Musc Denies numbness and Denies tingling Skin/Breast Denies lesions Neuro Denies vertigo, Denies dizziness, Denies numbness and Denies tingling Psych Denies anxiety, Denies depression, Denies homicidal ideation, Denies suicidal ideation and Denies other (substance abuse) Aller/Immun Denies wheezing Physical exam (Primary Care) Vital Signs: Last Vital Signs Pulse 76 02/17/24 15:01 BP 130/72 02/17/24 15:01 Pulse Ox 96 02/17/24 15:01 BMI result Body Mass Index 30.4 Tobacco/Smoking Status: Tobacco use Status Tobacco use date assessed 02/17/24 02/17/24 15:04 Patient Tobacco Use Status Former Tobacco user 02/17/24 15:04 Tobacco use type Cigarette 02/17/24 15:04 e-Cigarette/Vaping Use Never Used 02/17/24 15:04 PHQ-9: PHQ-9 Score PHQ-9: Total score 0 02/17/24 15:13 Depression Screening Interpretation: Negative Thrive Assessment: Date of Thrive Assessment Date Thrive assessed 02/17/24 02/17/24 15:04 Currently or been in a relationship where the following occur: I choose not to answer Const General: cooperative Nutritional Appearance: well nourished Orientation/consciousness: patient oriented x3 HENMT Head: Yes normal to inspection, Yes normocephalic and Yes atraumatic Ears: TM's normal bilaterally Eyes General: appearance normal, both eyes and all related structures Alignment and Position: alignment normal and position normal Neck Neck: Yes normal visual inspection, Yes no lymphadenopathy and Yes supple Resp Effort & Inspection: normal respiratory effort Auscultation: clear to auscultation bilaterally Cardio Rate: regular rate Rhythm: regular rhythm Heart sounds: S1 normal heart sound present, S2 normal heart sound present and no murmurs GI Palpation (GI): Soft to palpation and nontender Auscultation: normal bowel sounds Male General Exam: Yes normal external exam Penis: normal penis Scrotum: scrotum normal, testes descended bilaterally and no inguinal hernias Testes: no testicular mass Skin Other: multiple macular and papular lesions ranging in color from tissue color to skinner to scalp and upper torso Rashes: no rashes Neuro General: patient oriented x3, moves all extremities, no focal motor deficits and deep tendon reflexes 2+ bilaterally Romberg Test: Negative Extrem Right lower extremity: edema (trace) Psych Appearance: grossly normal Mental Status: mental status grossly normal Speech and movement: Normal speech and movement present Affect: normal affect Attitude: cooperative Thought process: Normal thought process present Thought content: Normal thought content present Insight: Good insight present (Psych) Judgement: Good judgement present (Psych) Coding Level of Care Code Est Pt Prev Care >65y(01314) Diagnoses Physical exam Z00. Vitamin D deficiency E55.9 Skin lesion L98.9 Screening PSA (prostate specific antigen) Z12.5 Additional Codes CYNDI-7 Assessment Billing - CYNDI-7 Assessment Tool: CYNDI-7 Assessment 54057 ([id number]) Assessment & Plan Assessment & Plan (1) Physical exam: Code(s): Z00.00 - Encounter for general adult medical examination without abnormal fin dings Category: Medical Plan: Labs ordered (2) Vitamin D deficiency: Code(s): E55.9 - Vitamin D deficiency, unspecified Category: Medical Plan: Labs ordered (3) Skin lesion: Code(s): L98.9 - Disorder of the skin and subcutaneous tissue, unspecified Category: Medical Plan: referred to derm (4) Screening PSA (prostate specific antigen): Code(s): Z12.5 - Encounter for screening for malignant neoplasm of prostate Category: Medical Plan: PSA ordered Plan The patient agreed to the use of a medical voucher clerk for this encounter. Scribed for MELISSA Linad by Anai Westfall medical voucher clerk, on 02/17/2024 at 15:10 EST. Orders: Orders Complete Blood Count Auto Diff Today Z00.00 - Encounter for general adult medical examination without abnormal findings Comprehensive [place]. Panel Fast Today Z00.00 - Encounter for general adult medical examination without abnormal findings TSH reflex Free T4 Today Z00.00 - Encounter for general adult medical examination without abnormal findings UA CC w/rflx Micro + Cult Today Z00.00 - Encounter for general adult medical examination without abnormal findings Lipid Panel Today Z00.00 - Encounter for general adult medical examination without abnormal findings Prostate Specific Antigen Scr Today Z12.5 - Encounter for screening for malignant neoplasm of prostate Vitamin D 25-OH Total Today E55.9 - Vitamin D deficiency, unspecified Referrals Dermatology Referral L98.9 - Disorder of the skin and subcutaneous tissue, unspecified Medications: New atorvastatin 10 mg PO BEDTIME 90 tabs 0RF
== END 2024-02-17 15:43 | disposition home or self-care (01) ==
PROVIDERS: PCP Nurse Practitioner Family; Visit Provider Nurse Practitioner Family
DX: Z00.00 Encounter for general adult medical examination without abnormal findings (principal); E55.9 Vitamin D deficiency, unspecified; L98.9 Disorder of the skin and subcutaneous tissue, unspecified; Z12.5 Encounter for screening for malignant neoplasm of prostate

== ENCOUNTER → 2024-02-17 14:55 | Outpatient (BNVA) | payer MEDICARE, SELFPAY | PROVIDERS: PCP Nurse Practitioner Family; Visit Provider Nurse Practitioner Family | DX: Z00.01 Encounter for general adult medical examination with abnormal findings (principal); L98.9 Disorder of the skin and subcutaneous tissue, unspecified; E55.9 Vitamin D deficiency, unspecified | CPT/HCPCS: 96127; 99397 ==

== ENCOUNTER 2024-09-14 10:23 | Outpatient (AMB) | payer MEDICARE, SELFPAY ==
--- OUTSIDE RECORDS SUMMARY | 2024-09-14 10:53 | XMS_ITS | Encounter Summary ---
Author Organization [facility], [place] [address] [place] [address] Phone Care Team Providers Care Electric Hoist Operator Name Role Phone GordonForrest gilliam LENA Primary Care Provider [phone] Reason for Visit * Reason Comments Med Refill Encounter Details Date Type Department Care Team (Late Contact Info) Description 02/06/2021 Refill [facility] [address] [place] [phone] Rajiv Ghosh MD [address] [facility] [place] [address] Social History Tobacco Use Types Packs/Day Years Used Date Smoking Tobacco: Former Cigarettes 2008 Alcohol Use Standard Drinks/Week Comments Yes 0 (1 standard drink = 0.6 oz pure alcohol) former social drinker, quit August 2019. Sex and Gender Information Value Date Recorded Sex Assigned at Not on file Legal Sex Male 11:54 AM EDT Gender Identity Not on file Sexual Orientation Not on file documented as of this encounter Plan of Treatment Upcoming Encounters Date Type Department Care Team (Late Contact Info) Description 10/25/2024 11:30 AM EDT Office Visit [facility] [place] [address] [place] [address] Reynold Alberts MD [address] [facility] [place] [address] documented as of this encounter Visit Diagnoses Not on filedocumented in this encounter Care Teams Electric Hoist Operator Relationship Specialty Start Date End Date Forrest Ayoub NP [address] [place] [address] PCP - General Nurse Practitioner 11/27/19 documented as of this encounter
--- OUTSIDE RECORDS SUMMARY | 2024-09-14 10:53 | XMS_ITS | Encounter Summary ---
Author Organization [facility] Address [address] [place] [address] Phone Care Team Providers Care Customer Liaison Name Role Phone Forrest Ayoub NP Primary Care Provider [phone] Encounter Details Date Type Department Care Team (Late Contact Info) Description 05/14/2022 Documentation Only [facility] [address] [place] [phone] Darrell Parekh PA Social History Tobacco Use Types Packs/Day Years [...] Visit [facility] [address] [place] [address] Reynold Alberts MD [address] [place] [address] [place] [phone] documented as of this encounter Visit Diagnoses Not on filedocumented in this encounter Care Teams Customer Liaison Relationship Specialty Start Date End Date Forrest Ayoub NP [address] [place] [address] PCP - General Nurse Practitioner 11/27/19 documented as of this encounter
--- OUTSIDE RECORDS SUMMARY | 2024-09-14 10:53 | XMS_ITS ---
Author Name [facility] Organization Unknown Problems Problem Status Onset Date Problem Type Date of Resoluti on Source Complication of transplanted kidney, unspecified complication active EncounterDiagnosisAct [facility] Encounters Encounter Type Encounter Reason Primary Diagnosis Location Date Ambulatory Unspecified complication of kidney transplant Unspecified complication of kidney transplant [place] 12/04/2022 Ambulatory Unspecified complication of kidney transplant [place] 08/05/2022 Ambulatory Unspecified complication of kidney transplant [place] 07/15/2022 Ambulatory Kidney transplan t status [place] 02/25/2022 Ambulatory Unspecified complication of kidney transplant [place] 09/03/2021 Care Team Organization Name Specialty Phone Email Start Date End Da te [place] PCP,No Primary Care 02/25/2022 [place] NO PCP Primary Care 08/20/2021 02/17/2022
--- OUTSIDE RECORDS SUMMARY | 2024-09-14 10:53 | XMS_ITS | Encounter Summary ---
Author Organization [facility], [place] [address] [place] [address] Phone Care Team Providers Care Patch Washer Name Role Phone GordonForrest gilliam LENA Primary Care Provider [phone] Reason for Visit * Reason Comments Med Refill Encounter Details Date Type Department Care Team (Late Contact Info) Description 10/12/2022 [facility]ill [facility] [address] [place] [phone] Reynold Alberts MD [address] [place] [address] [place] [address] Social History Tobacco Use Types Packs/Day Years Used Date Smoking Tobacco: Former Cigarettes 1 2008 Alcohol Use Standard Drinks/Week Comments Yes [...] Visit [facility] [address] [place] [phone] Reynold Alberts MD [address] [place] [address] [place] [id number] documented as of this encounter Visit Diagnoses Not on filedocumented in this encounter Care Teams Patch Washer Relationship Specialty Start Date End Date Forrest Ayoub NP [facility] [place] [address] PCP - General Nurse Practitioner 11/27/19 documented as of this encounter
--- OUTSIDE RECORDS SUMMARY | 2024-09-14 10:53 | XMS_ITS | Encounter Summary ---
Author Organization [facility] Address [address] [place] [address] Phone Care Team Providers Care Delivery Supervisor Name Role Phone Forrest Ayoub NP Primary Care Provider [phone] Encounter Details Date Type Department Care Team (Late Contact Info) Description 07/07/2022 Documentation Only [facility] [address] [place] [phone] Darrell Parekh PA Social History Tobacco Use [...] Visit [facility] [address] [place] [address] Reynold Alberts MD [address] [place] [address] [place] [phone] documented as of this encounter Visit Diagnoses Not on filedocumented in this encounter Care Teams Delivery Supervisor Relationship Specialty Start Date End Date Forrest Ayoub NP [address] [place] [address] PCP - General Nurse Practitioner 11/27/19 documented as of this encounter
--- OUTSIDE RECORDS SUMMARY | 2024-09-14 10:53 | XMS_ITS | Encounter Summary ---
Author Organization [facility], Address [address] [place] [address] Phone Care Team Providers Care Elevator Operator Name Role Phone Gordonmane Forrest PAREDES Primary Care Provider [phone] Reason for Visit * Reason Comments Med Refill Encounter Details Date Type Department Care Team (Late Contact Info) Description 05/02/2020 Refill [facility] [address] [place] [address] Rajiv Ghosh MD [address] [place] [address] [place] [phone] Social History Tobacco Use Types Packs/Day Years [...] on file Sexual Orientation Not on file COVID-19 Exposure Response Date Recorded In the last month, have you been in contact with someone who was confirmed or suspected to have Coronavirus / COVID-19? No / Unsure 04/29/2020 8:51 AM EST documented as of this encounter Plan of Treatment Upcoming Encounters Date Type Department Care Team (Late Contact Info) Description 10/25/2024 11:30 AM EDT Office Visit [facility] [address] [place] [address] Reynold Alberts MD [address] [place] [address] documented as of this encounter Visit Diagnoses Not on filedocumented in this encounter Care Teams Elevator Operator Relationship Specialty Start Date End Date Forrest Ayoub NP [address] [place] [address] PCP - General Nurse Practitioner 11/27/19 documented as of this encounter
--- OUTSIDE RECORDS SUMMARY | 2024-09-14 10:53 | XMS_ITS | Encounter Summary ---
Author Organization [facility], Address [address] [place] [address] Phone Care Team Providers Care Lab Asst Name Role Phone Forrest Ayoub NP Primary Care Provider [phone] Reason for Visit * Reason Comments Med Refill Encounter Details Date Type Department Care Team (Late Contact Info) Description 06/12/2022 Refill [facility] [address] [place] [phone] Darrell Parekh PA Social History Tobacco Use [...] Visit [facility] [place] [address] [place] [address] Reynold Alberts MD [address] [facility] [place] [phone] documented as of this encounter Visit Diagnoses Not on filedocumented in this encounter Care Teams Lab Asst Relationship Specialty Start Date End Date Forrest Ayoub NP [address] [place] [address] PCP - General Nurse Practitioner 11/27/19 documented as of this encounter
--- OUTSIDE RECORDS SUMMARY | 2024-09-14 10:53 | XMS_ITS | Encounter Summary ---
Author Organization [facility], Address [address] [place] [address] Phone Care Team Providers Care Sieve Grader Tender Name Role Phone Gordonmane Forrest PAREDES Primary Care Provider [phone] Reason for Visit * Reason Comments Med Refill Encounter Details Date Type Department Care Team (Late Contact Info) Description 10/17/2020 Refill [facility] [address] [place] [address] Rajiv Ghsoh MD [address] [facility] [place] [phone] Social History Tobacco Use Types Packs/Day Years [...] have Coronavirus / COVID-19? No / Unsure 10/03/2020 10:32 AM EDT documented as of this encounter Plan of Treatment Upcoming Encounters Date Type Department Care Team (Late Contact Info) Description 10/25/2024 11:30 AM EDT Office Visit [facility] [address] [place] [phone] Reynold Alberts MD [address] [place] [phone] documented as of this encounter Visit Diagnoses Not on filedocumented in this encounter Care Teams Sieve Grader Tender Relationship Specialty Start Date End Date Forrest Ayoub NP [address] [place] [address] PCP - General Nurse Practitioner 11/27/19 documented as of this encounter
--- OUTSIDE RECORDS SUMMARY | 2024-09-14 10:53 | XMS_ITS | Encounter Summary ---
Author Organization [facility] [place] [address] Phone Care Team Providers Care Molded Candles Wicker Name Role Phone JaidaildaForrest gilliam LENA Primary Care Provider [phone] Encounter Details Date Type Department Care Team (Late st Contact Info) Description 06/23/2022 Documentation Only [facility] [address] [facility] [address] [place] [address] [place] [address] [place] [address] Social History Tobacco Use Types Packs/Day Years [...] Encounters Date Type Department Care Team (Late st Contact Info) Description 10/25/2024 11:30 AM EDT Office Visit [facility] [place] [address] [facility] [place] [address] Reynold Alberts MD [address] [facility] [place] [address] documented as of this encounter Visit Diagnoses Not on filedocumented in this encounter Care Teams Molded Candles Wicker Relationship Specialty Start Date End Date Forrest Ayoub NP [facility] [place] [address] PCP - General Nurse Practitioner 11/27/19 documented as of this encounter
--- OUTSIDE RECORDS SUMMARY | 2024-09-14 10:53 | XMS_ITS | Encounter Summary ---
Author Organization [facility] Address [address] [place] [address] Phone Care Team Providers Care Data Warehouse Developer Name Role Phone Forrest Ayoub NP Primary Care Provider [phone] Encounter Details Date Type Department Care Team (Late Contact Info) Description 07/07/2022 Documentation Only [facility] [address] [place] [phone] Darrell Parekh PA Social History Tobacco Use [...] [facility] [address] [place] [address] Reynold Alberts MD [address] [place] [address] [place] [phone] documented as of this encounter Visit Diagnoses Not on filedocumented in this encounter Care Teams Data Warehouse Developer Relationship Specialty Start Date End Date Forrest Ayoub NP [address] [place] [address] PCP - General Nurse Practitioner 11/27/19 documented as of this encounter
--- OUTSIDE RECORDS SUMMARY | 2024-09-14 10:53 | XMS_ITS | Encounter Summary ---
Author Organization [facility] [place] [address] Phone Care Team Providers Care Hospice Administrator Name Role Phone JaidaildaForrest gilliam LENA Primary Care Provider [phone] Encounter Details Date Type Department Care Team (Late st Contact Info) Description 07/07/2022 Documentation Only [facility] [address] [place] [address] Kalli KumariZirconia, [place] [address] [place] [address] Social History Tobacco Use Types [...] Visit [facility] [place] [address] [place] [address] Reynold Alberts MD [address] [facility] [address] [place] [address] documented as of this encounter Visit Diagnoses Not on filedocumented in this encounter Care Teams Hospice Administrator Relationship Specialty Start Date End Date Forrest Ayoub NP [facility] [place] [address] PCP - General Nurse Practitioner 11/27/19 documented as of this encounter
--- OUTSIDE RECORDS SUMMARY | 2024-09-14 10:53 | XMS_ITS | Encounter Summary ---
Author Organization [facility] [place] [address] Phone Care Team Providers Care Corduroy Brusher Operator Name Role Phone JaidaildaForrest gilliam LENA Primary Care Provider [phone] Encounter Details Date Type Department Care Team (Late st Contact Info) Description 06/23/2022 Documentation Only [facility] [address] [place] [address] Angela Prieto[place], [place] [address] [place] [address] Social History Tobacco Use Types [...] Visit [facility] [place] [address] [place] [address] Reynold Alberts MD [address] [facility] [address] [place] [address] documented as of this encounter Visit Diagnoses Not on filedocumented in this encounter Care Teams Corduroy Brusher Operator Relationship Specialty Start Date End Date Forrest Ayoub NP [facility] [place] [address] PCP - General Nurse Practitioner 11/27/19 documented as of this encounter
--- OUTSIDE RECORDS SUMMARY | 2024-09-14 10:53 | XMS_ITS ---
Author Organization [facility] Address [address] [place] [address] Care Team Providers Care Drop Shipment Clerk Name Role Phone AALIYAH KHAN Primary Care Provider Galo Cohen Jr REASON FOR VISIT pantoprazole refill Medications Medication SIG (Take, Route, Frequency, Duration) Notes Start Date End Date Status Pantoprazole Sodium 40 MG TAKE TABLET ON E TO TWO TIMES DAILY for 90 days Active Encounters Encounter Location Date Provider Diagnosis [facility] [address] [place] [address] 05/22/2024 Galo Pang Jr Plan Of Treatment Medication Medication Name Sig Start Date Stop Date Notes Pantoprazole Sodium 40 MG TAKE TABLET ON E TO TWO TIMES DAILY for 90 days Progress Notes * GRACY VILLANUEVA JrDOB: [birth year] (73 yo M)Acc No.[id number]:05/22/2024 Patient:?GRACY VILLANUEVA :1950???Age:73 Y???Sex:Male Address:[address] [place] [address], [place] [address] * Refills? Refill Pantoprazole Sodium Tablet Delayed Release, 40 MG, 180, TAKE TABLET ONE TO TWO TIMES DAILY, 90 days, Refills=3 * true * Date:? Generated for Amanda veliz/Jason/eTransmitting on:?09/14/2024 10:53 AM EDT
--- OUTSIDE RECORDS SUMMARY | 2024-09-14 10:53 | XMS_ITS | Encounter Summary ---
Author Organization [facility] Address [address] [place] [address] Phone Care Team Providers Care Manager Sap Name Role Phone Forrest Ayoub NP Primary Care Provider [phone] Encounter Details Date Type Department Care Team (Late Contact Info) Description 07/21/2022 Documentation Only [facility] [address] [place] [phone] Darrell Parekh PA Social History Tobacco Use [...] Visit [facility] [address] [place] [address] Reynold Alberts MD [address] [place] [address] [place] [phone] documented as of this encounter Visit Diagnoses Not on filedocumented in this encounter Care Teams Manager Sap Relationship Specialty Start Date End Date Forrest Ayoub NP [address] [place] [address] PCP - General Nurse Practitioner 11/27/19 documented as of this encounter
--- OUTSIDE RECORDS SUMMARY | 2024-09-14 10:53 | XMS_ITS | Encounter Summary ---
Author Organization [facility], [place] [address] [place] [address] Phone Care Team Providers Care Underwriting Account Representative Name Role Phone GordonForrest gilliam LENA Primary Care Provider Reason for Visit * Reason Comments Med Refill Encounter Details Date Type Department Care Team (Late Contact Info) Description 12/17/2020 Refill [facility] [address] [place] [phone] Rajiv Ghosh MD [address] [facility] [place] [address] Social History Tobacco Use Types [...] Visit [facility] [place] [address] [place] [address] Reynold Alberts MD [address] [facility] [place] [address] documented as of this encounter Visit Diagnoses Not on filedocumented in this encounter Care Teams Underwriting Account Representative Relationship Specialty Start Date End Date Forrest Ayoub NP [address] [place] [address] PCP - General Nurse Practitioner 11/27/19 documented as of this encounter
--- OUTSIDE RECORDS SUMMARY | 2024-09-14 10:53 | XMS_ITS | Encounter Summary ---
Author Organization [facility] [place] [address] Phone Care Team Providers Care Preassembler Printed Circuit Board Name Role Phone JaidaildaForrest gilliam LENA Primary Care Provider [phone] Encounter Details Date Type Department Care Team (Late st Contact Info) Description 04/21/2022 Documentation Only [facility] [address] [place] [address] Kalli KumariHan[place], [place] [address] [place] [address] Social History Tobacco Use Types [...] Visit [facility] [place] [address] [place] [address] Reynold Alberts MD [address] [facility] [place] [address] documented as of this encounter Visit Diagnoses Not on filedocumented in this encounter Care Teams Preassembler Printed Circuit Board Relationship Specialty Start Date End Date Forrest Ayoub NP [facility] [place] [address] PCP - General Nurse Practitioner 11/27/19 documented as of this encounter
--- OUTSIDE RECORDS SUMMARY | 2024-09-14 10:54 | XMS_ITS | Patient Health Record ---
Author Organization [facility] Address [address] [place] [phone] Care Team Providers Care Agronomy Research Manager Name Role Phone AALIYAH KHAN Primary Care Provider Galo Cohen Jr Unavailable [phone] Allergies Allergen (clinical drug ingredient) Drug/Non Drug Allergy documented on EMR Reaction Allergy Type Onset Date Status clindamycin Clindamycin HCl Unknown Drug Allergy Active Reason For Referral No Information Medications Medication SIG (Take, Route, Frequency, Duration) Notes Start Date End Date Status predniSONE 20 MG Orally Act jozef MiraLax (colon prep) 8.3 ounce ((238) grams mixed with Gatorade or Crystal Light orally begin at 5:00 p.m. the day before the procedure for 1 day 02/01/2020 Active Famotidine 20 MG Orally Act jozef amLODIPine Besylate 10 MG Orally Active Pantoprazole Sodium 40 MG TAKE TABLET ON E TO TWO TIMES DAILY for 90 days Active clonazePAM 0.5 MG 1 tablet at bedtime Orally Once a day/as needed Active Senokot 4 GUMMIES Once a day Active Carvedilol 3.125 MG Orally Active Retacrit 00588 UNIT/ML Injection Active Vitamin D-3 25 MCG (1000 UT) Orally Active Vitamin C 500 MG Orally Act jozef Immunizations Vaccine Route Administration Date Status Comme nts Influenza Unknown 01/25/2020 Administered Social History Tobacco Use: Social History Observation Description Date Details (start date - stop date) Never Smoker NA - NA Tobacco Use/Smoking Question Answer Notes Patient is a nonsmoker Alcohol Screen Question Answer Notes Did you have a drink containing alcohol in the p ast year? 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 Problem Abnormal feces (584930388) Abnormal findings in stool (R19.5) Active confirmed Encounters Encounter Location Date Provider Diagnosis [facility] [address] [facility] [address] [place] [address] 05/22/2024 Galo Pang Jr Plan Of Treatment Future Test Test Name Order Date UPPER GI ENDOSCOPY 02/01/2020 COLONOSCOPY 02/01/2020 Insurance Providers Payer Name Payer Address Payer Phone Subscriber Number Group Number Insured Name Patient Relationship to Insured Coverage Start Date Coverage End Date [facility] [address] [place], [place] [id number] [phone] [id number] GRACY VILLANUEVA Self - patient is the insured Medical (General) History Medical History History ICD Code stage 5 kidney ds COPD depression Surgical History Surgery Date(Month/Year) toes vericose veins
--- OUTSIDE RECORDS SUMMARY | 2024-09-14 10:54 | XMS_ITS | Encounter Summary ---
Author Organization [facility] Address [address] [place] [address] Phone Care Team Providers Care Wallpaper Hanger Helper Name Role Phone Forrest Ayoub NP Primary Care Provider [phone] Encounter Details Date Type Department Care Team (Late Contact Info) Description 10/20/2021 Documentation Only [facility] [address] [place] [phone] Darrell Parekh PA Social History Tobacco Use [...] Visit [facility] [address] [place] [address] Reynold Alberts MD [address] [place] [address] [place] [phone] documented as of this encounter Visit Diagnoses Not on filedocumented in this encounter Care Teams Wallpaper Hanger Helper Relationship Specialty Start Date End Date Forrest Ayoub NP [address] [place] [address] PCP - General Nurse Practitioner 11/27/19 documented as of this encounter
--- OUTSIDE RECORDS SUMMARY | 2024-09-14 10:54 | XMS_ITS | Encounter Summary ---
Author Organization [facility] [place] [place] [address] Phone Care Team Providers Care Furnace Stock Inspector Name Role Phone Forrest Ayoub LENA Primary Care Provider [phone] Encounter Details Date Type Department Care Team (Late Contact Info) Description 08/26/2021 Documentation Only [facility] [address] [place] [address] Darrell Parekh PA Social History Tobacco Use [...] have Coronavirus / COVID-19? No / Unsure 07/31/2021 5:43 PM EDT documented as of this encounter Plan of Treatment Upcoming Encounters Date Type Department Care Team (Late Contact Info) Description 10/25/2024 11:30 AM EDT Office Visit [facility] [place] [address] [place] [place] [address] Reynold Alberts MD [address] [facility] [place] [address] documented as of this encounter Visit Diagnoses Not on filedocumented in this encounter Care Teams Furnace Stock Inspector Relationship Specialty Start Date End Date Forrest Ayoub NP [facility] [place] [address] PCP - General Nurse Practitioner 11/27/19 documented as of this encounter
--- OUTSIDE RECORDS SUMMARY | 2024-09-14 10:54 | XMS_ITS | Clinical Summary ---
Author Organization [facility], Address [address] [place] [address] [place] [address] Phone Care Team Providers Care Cushion Builder Name Role Phone Forrest Ayoub NP Primary Care Provider [phone] Allergies Active Allergy Reactions Criticality Noted Date Comments Clindamycin Vomiting Medium 02/21/2020 Medications pantoprazole (PROTONIX) 40 MG EC tablet Take 40 mg by mouth 1 (one) time each day before breakfast Do not crush, chew, or split. Active Ascorbic Acid (vitamin C) 100 MG tablet Take 1,000 mg by mouth 1 (one) time each day Active bisacodyl (Dulcolax) 5 MG EC tablet Take 1 tablet by mouth 08/29/19 21 Active Sennosides 8.6 MG capsule Take 1 capsule by mouth daily 08/29/19 21 Active amoxicillin (AMOXIL) 500 MG capsule Take 4 capsules (2,000 mg total) by mouth 1 (one) time if needed (prior to dental work) for up to 1 dose Take 4 caps 1 hour prior to dental procedure 12 capsule 1 07/02/19 22 Active tacrolimus (PROGRAF) 1 MG capsule TAKE 3 CAPSULES BY MOUTH IN THE MORNING AND 2 CAPSULES IN THE EVENING 150 capsule 11 12/02/19 24 Active sodium polystyrene sulfonate (KAYEXALATE) powder TAKE 30 GM BY MOUTH MIXED INTO WATER 2 (TWO) TIMES A WEEK 454 g 11 12/30/19 24 Active mycophenolate (MYFORTIC) 360 MG EC tablet TAKE 1 TABLET BY MOUTH IN THE MORNING AND 1 TABLET IN THE EVENING. 180 tablet 3 02/09/20 24 Active carvedilol (COREG) 3.125 MG tablet Take 1 tablet (3.125 mg total) by mouth in the morning and 1 tablet (3.125 mg total) in the evening. Take with meals. 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 02/06/2020 Anemia in chronic kidney disease 12/11/2019 Essential (primary) hypertension 12/11/2019 Hyperkalemia 12/07/2019 Resolved Problems Problem Noted Date Diagnosed Date Resolved Date Current use of anticoagulant 08/07/2021 12/16/2021 Acute embolism and thrombosi s of right femoral vein 05/29/2021 01/22/2022 Chronic kidney disease, stage 4 (severe) 05/27/2021 06/03/2021 Degenerative joint disease i nvolving multiple joints 05/27/2021 06/03/2021 Inguinal hernia 09/10/2020 06/03/2021 Encounter for other specifie d special examination 04/07/2020 10/03/2020 Moderate protein-calorie malnutrition 03/05/2020 06/03/2021 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 02/24/2020 End stage renal disease 02/24/202009/24 Other asthma 02/23/2020 06/03/2021 Osteoarthritis 02/23/2020 06/03/2021 Hypotension of hemodialysis 02/23/2020 06/03/2021 Encounter for screening for respiratory tuberculosis 02/23/2020 10/03/2020 Anxiety disorder 02/23/2020 06/03/2021 Dependence on renal dialysis 02/21/2020 06/03/2021 Stage 5 chronic kidney disease 12/27/2019 06/03/2021 Chronic kidney disease, stage 3 (moderate) 12/11/2019 02/08/2020 Acute nontraumatic kidney injury 12/07/2019 10/03/2020 Hydronephrosis 12/07/2019 06/03/2021 Obesity 12/07/2019 06/03/2021 Encounters Date Type Department Care Team Description 08/21/2024 Telephone [facility] [address] [place] [address] Christi Prieto MA 08/18/2024 10:30 AM EDT Office Visit [facility] [address] [place] [address] Reynold Alberts MD Personal history of immunosuppression therapy (Primary Dx); Kidney replaced by transplant; Stage 3b chronic kidney disease (HCC); Hypertension; Anemia in chronic kidney disease; Hyperkalemia 08/18/2024 Office Communication [facility] [address] [place] [address] Yanna Curtis 08/09/2024 Orders Only [facility] [address] [place] [address] Christi Prieto MA Kidney replaced by transplant (Primary Dx); Personal history of immunosuppression therapy; Stage 3b chronic kidney disease (HCC); Anemia in chronic kidney disease; Hyperkalemia; Hyperlipidemia, not otherwise specified; Vitamin D deficiency, not otherwise specified; Chronic gout with tophus, not otherwise specified; Hypomagnesemia; Other iron deficiency anemia; Other specified hypoparathyroidism (HCC); Albuminuria, not otherwise specified from Last 3 Months Immunizations Immunization Administration Dates Next Due Hepatitis B 09/05/2020,,04/15/2020,03/14 Influenza Split High Dose Pr eservative Free IM 02/27/2020 Influenza, MDCK, Quadrivalen t, with preservative 01/25/2020 Influenza, Unspecified 02/06/2021,2019,07/08/2019,02/22,03/06/2014 MMR 08/06/2020 Moderna SARS-COV-2 06/27/2020,05/30/2020 Pneumococcal Conjugate 13-Valent 02/22/2018 Pneumococcal Polysaccharide 08/28/2020, 4 Social History Tobacco Use Types Packs/Day Years Used Date Smoking Tobacco: Former Cigarettes 1 5 2008 Alcohol Use Standard Drinks/Week Comments Yes 0 (1 standard drink = 0.6 oz pure alcohol) former social drinker, quit August 2019. Sex and Gender Information Value Date Recorded Sex Assigned at Not on file Legal Sex Male 11:54 AM EDT Gender Identity Not on file Sexual Orientation Not on file Last Filed Vital Signs Vital Sign Reading Time Taken Comments Blood Pressure 118/70 08/18/2024 10:45 AM EDT Pulse 86 03/25/2021 8:35 AM EST Temperature 36.6 ??C (97.9 ??F) 03/25/2021 8:35 AM ES T Respiratory Rate 15 09/12/2020 10:55 AM EDT Oxygen Saturation 97% 01/02/2021 10:08 AM EDT Inhaled Oxygen Concentration - - Weight 94.8 kg (209 lb) 08/18/2024 10:45 AM EDT Height 177.8 cm (5' 10 ) 04/07/2024 10:01 AM EST Body Mass Index 29.99 04/07/2024 10:01 AM EST Plan of Treatment Upcoming Encounters Date Type Department Care Team (Late st Contact Info) Description 10/25/2024 11:30 AM EDT Office Visit [facility] [address] [place] [address] Reynold Alberts MD [address] [facility] [place] [address] Health Maintenance Due Date Last Done Comments Colonoscopy (Post-Transplant Patient) 03/04/2021 Influenza Vaccine (Season Ended) 2024 02/06/2021, 02/27/2020, 02/27/2020, Additional history exists Pneumococcal Vaccine: 50+ Years Completed 08/28/2020, 02/22/2018, 03/06/2014 Hepatitis B Vaccine Aged Out 09/05/2020, 05/08/2020, 04/15/2020, Additional history exists No longer eligible based on patient's age to complete this topic Procedures Procedure Name Priority Date/Time Associated Diagnosis Comments URINALYSIS, COMPLETE Routine 08/15/2024 9:44 AM EDT Kidney replaced by transplant Personal history of immunosuppression therapy Stage 3b chronic kidney disease (HCC) Anemia in chronic kidney disease Hyperkalemia Hyperlipidemia, not otherwise specified Vitamin D deficiency, not otherwise specified Chronic gout with tophus, not otherwise specified Hypomagnesemia Other iron deficiency anemia Other specified hypoparathyroidism (HCC) Albuminuria, not otherwise specified URINE ALBUMIN / CREATININE RATIO Routine 08/15/2024 9:44 AM EDT Kidney replaced by transplant Personal history of immunosuppression therapy Stage 3b chronic kidney disease (HCC) Anemia in chronic kidney disease Hyperkalemia Hyperlipidemia, not otherwise specified Vitamin D deficiency, not otherwise specified Chronic gout with tophus, not otherwise specified Hypomagnesemia Other iron deficiency anemia Other specified hypoparathyroidism (HCC) Albuminuria, not otherwise specified CREATINE KINASE Routine 08/15/2024 9:44 AM EDT Kidney replaced by transplant Personal history of immunosuppression therapy Stage 3b chronic kidney disease (HCC) Anemia in chronic kidney disease Hyperkalemia Hyperlipidemia, not otherwise specified Vitamin D deficiency, not otherwise specified Chronic gout with tophus, not otherwise specified Hypomagnesemia Other iron deficiency anemia Other specified hypoparathyroidism (HCC) Albuminuria, not otherwise specified AST Routine 08/15/2024 9:44 AM EDT Kidney replaced by transplant Personal history of immunosuppression therapy Stage 3b chronic kidney disease (HCC) Anemia in chronic kidney disease Hyperkalemia Hyperlipidemia, not otherwise specified Vitamin D deficiency, not otherwise specified Chronic gout with tophus, not otherwise specified Hypomagnesemia Other iron deficiency anemia Other specified hypoparathyroidism (HCC) Albuminuria, not otherwise specified ALT Routine 08/15/2024 9:44 AM EDT Kidney replaced by transplant Personal history of immunosuppression therapy Stage 3b chronic kidney disease (HCC) Anemia in chronic kidney disease Hyperkalemia Hyperlipidemia, not otherwise specified Vitamin D deficiency, not otherwise specified Chronic gout with tophus, not otherwise specified Hypomagnesemia Other iron deficiency anemia Other specified hypoparathyroidism (HCC) Albuminuria, not otherwise specified PTH, INTACT Routine 08/15/2024 9:44 AM EDT Kidney replaced by transplant Personal history of immunosuppression therapy Stage 3b chronic kidney disease (HCC) Anemia in chronic kidney disease Hyperkalemia Hyperlipidemia, not otherwise specified Vitamin D deficiency, not otherwise specified Chronic gout with tophus, not otherwise specified Hypomagnesemia Other iron deficiency anemia Other specified hypoparathyroidism (HCC) Albuminuria, not otherwise specified IRON PANEL (FE, TIBC, TSAT) Routine 08/15/2024 9:44 AM EDT Kidney replaced by transplant Personal history of immunosuppression therapy Stage 3b chronic kidney disease (HCC) Anemia in chronic kidney disease Hyperkalemia Hyperlipidemia, not otherwise specified Vitamin D deficiency, not otherwise specified Chronic gout with tophus, not otherwise specified Hypomagnesemia Other iron deficiency anemia Other specified hypoparathyroidism (HCC) Albuminuria, not otherwise specified FERRITIN Routine 08/15/2024 9:44 AM EDT Kidney replaced by transplant Personal history of immunosuppression therapy Stage 3b chronic kidney disease (HCC) Anemia in chronic kidney disease Hyperkalemia Hyperlipidemia, not otherwise specified Vitamin D deficiency, not otherwise specified Chronic gout with tophus, not otherwise specified Hypomagnesemia Other iron deficiency anemia Other specified hypoparathyroidism (HCC) Albuminuria, not otherwise specified MAGNESIUM Routine 08/15/2024 9:44 AM EDT Kidney replaced by transplant Personal history of immunosuppression therapy Stage 3b chronic kidney disease (HCC) Anemia in chronic kidney disease Hyperkalemia Hyperlipidemia, not otherwise specified Vitamin D deficiency, not otherwise specified Chronic gout with tophus, not otherwise specified Hypomagnesemia Other iron deficiency anemia Other specified hypoparathyroidism (HCC) Albuminuria, not otherwise specified LIPID PANEL Routine 08/15/2024 9:44 AM EDT Kidney replaced by transplant Personal history of immunosuppression therapy Stage 3b chronic kidney disease (HCC) Anemia in chronic kidney disease Hyperkalemia Hyperlipidemia, not otherwise specified Vitamin D deficiency, not otherwise specified Chronic gout with tophus, not otherwise specified Hypomagnesemia Other iron deficiency anemia Other specified hypoparathyroidism (HCC) Albuminuria, not otherwise specified URIC ACID Routine 08/15/2024 9:44 AM EDT Kidney replaced by transplant Personal history of immunosuppression therapy Stage 3b chronic kidney disease (HCC) Anemia in chronic kidney disease Hyperkalemia Hyperlipidemia, not otherwise specified Vitamin D deficiency, not otherwise specified Chronic gout with tophus, not otherwise specified Hypomagnesemia Other iron deficiency anemia Other specified hypoparathyroidism (HCC) Albuminuria, not otherwise specified VITAMIN D 25 HYDROXY Routine 08/15/2024 9:44 AM EDT Kidney replaced by transplant Personal history of immunosuppression therapy Stage 3b chronic kidney disease (HCC) Anemia in chronic kidney disease Hyperkalemia Hyperlipidemia, not otherwise specified Vitamin D deficiency, not otherwise specified Chronic gout with tophus, not otherwise specified Hypomagnesemia Other iron deficiency anemia Other specified hypoparathyroidism (HCC) Albuminuria, not otherwise specified CBC AND DIFFERENTIAL Routine 08/15/2024 9:44 AM EDT Kidney replaced by transplant Personal history of immunosuppression therapy Stage 3b chronic kidney disease (HCC) Anemia in chronic kidney disease Hyperkalemia Hyperlipidemia, not otherwise specified Vitamin D deficiency, not otherwise specified Chronic gout with tophus, not otherwise specified Hypomagnesemia Other iron deficiency anemia Other specified hypoparathyroidism (HCC) Albuminuria, not otherwise specified RENAL FUNCTION PANEL Routine 08/15/2024 9:44 AM EDT Kidney replaced by transplant Personal history of immunosuppression therapy Stage 3b chronic kidney disease (HCC) Anemia in chronic kidney disease Hyperkalemia Hyperlipidemia, not otherwise specified Vitamin D deficiency, not otherwise specified Chronic gout with tophus, not otherwise specified Hypomagnesemia Other iron deficiency anemia Other specified hypoparathyroidism (HCC) Albuminuria, not otherwise specified MYCOPHENOLIC ACID AND METABO. Routine 08/15/2024 9:44 AM EDT Kidney replaced by transplant Personal history of immunosuppression therapy Stage 3b chronic kidney disease (HCC) Anemia in chronic kidney disease Hyperkalemia Hyperlipidemia, not otherwise specified Vitamin D deficiency, not otherwise specified Chronic gout with tophus, not otherwise specified Hypomagnesemia Other iron deficiency anemia Other specified hypoparathyroidism (HCC) Albuminuria, not otherwise specified TACROLIMUS, HIGHLY SENSITIVE, LC/MS/MS Routine 08/15/2024 9:44 AM EDT Kidney replaced by transplant Personal history of immunosuppression therapy Stage 3b chronic kidney disease (HCC) Anemia in chronic kidney disease Hyperkalemia Hyperlipidemia, not otherwise specified Vitamin D deficiency, not otherwise specified Chronic gout with tophus, not otherwise specified Hypomagnesemia Other iron deficiency anemia Other specified hypoparathyroidism (HCC) Albuminuria, not otherwise specified MICROSCOPIC EXAMINATION - DO NOT USE Routine 08/15/2024 9:44 AM EDT from Last 3 Months Results * Tacrolimus, Highly Sensitive, LC/MS/MS (08/15/2024 9:44 AM EDT) Pathologist [facility] Tacrolimus by Immunoassay 7.8 5.0 - 20.0 ng/mL [facility] Comment: Detection Limit = 0.8 ng/mL Target steady state trough concentration for Tacrolimus varies based on type of organ transplant immunosuppressive protocol and other patient specific factors. ??Tacrolimus trough concentrations should be interpreted in conjunction with clinical assessments of rejection and tolerability. ??Values obtained with different assay methods cannot be used interchangeably due to differences in assay methods and cross-reactivity with metabolites, nor should correction factors be applied. ??Therefore, consistent use of one assay for individual patients is recommended. Tacrolimus assay performed by [employer]. ? Please note reference interval change [employer] will offer rebaseline testing (Test No. [id number]) through August 23, 2024. ??The rebaseline test will include results from both the current method (Genasys) and the new method ([employer]). ??All test results indicate the pug machine operator of the test on the laboratory report. ??The rebaseline test for tacrolimus immunoassay is charged at the durbin for the new test; the test for the retiring method is performed at no additional charge. 08/15/2024 9:44 AM EDT 08/15/2024 us Reynold Alberts MD LAB BLOOD ORDERABLES Final Result [facility] [address] [place] [address] * Urinalysis, Complete w/reflex to Culture (08/15/2024 9:44 AM EDT) Specific [place]pa, Urine 1.020 1.005 - 1.030 [facility] pH Urine 5.5 5.0 - 7.5 [facility] Color, Urine Yellow Yellow [facility] Appearance Urine Clear Clear [facility] [place] WBC Esterase Urine Negative Negative [facility] Protein, Ur Trace Negative/Tra ce [facility] [phone] Glucose, Ur Negative Negative [facility] [phone] Ketones, Urine Negative Negative [facility] [place] [phone] Blood Urine Negative Negative [facility] Bilirubin Urine Negative Negative [facility] [place] Urobilinogen Urine 0.2 0.2 - 1.0 mg/dL [facility] Nitrite, Urine Negative Negative [facility] Microscopic Examination Comment [facility] Comment:Microscopic follows if indicated. Other Microsc. Observations See below: [facility] Comment:Microscopic was mary cated and was performed. URINALYSIS REFLEX Comment [facility] [phone] Comment:This specimen will n ot reflex to a Urine Culture. Urine specimen (specimen) Urine specimen obtained by clean catch procedure / Unknown 08/15/2024 9:44 AM EDT 08/15/2024 Reynold Alberts MD LAB URINE ORDERABLES Final Result [facility] [address] [place] [address] * Mycophenolic Acid and Metabo. (08/15/2024 9:44 AM EDT) Mycophenolic Acid 3.2 1.0 - 3.5 ug/mL [facility] Mycophenolic [facility] Glucuronide 79 15 - 125 ug/mL [facility] Blood specimen (specimen) Venous blood / Unknown 08/15/2024 9:44 AM EDT 08/15/2024 Narrative [facility] - 08/19/2024 1:05 PM EDT Test(s) 917852-[id number] Acid; 791414- Mycophenolic Acid Glucuronide was developed and its performance characteristics determined by [employer] [facility]. It has not been cleared or approved by the Food and Drug Administration. Reynold Alberts MD LAB BLOOD ORDERABLES Final Result Performing Organization Address City/[facility]/ZIP Co de Phone Number [facility] [address] [place] [phone] * Microscopic Examination (08/15/2024 9:44 AM EDT) WBC, Urine None seen 0 - 5 /hpf [facility] RBC, Urine None seen 0 - 2 /hpf [facility] Squamous Epithelial, Urine None seen 0 - 10 /hpf [facility] Casts None seen None seen /lpf [facility] Bacteria, Urine None seen None seen/Few [facility] 08/15/2024 9:44 AM EDT 08/15/2024 Reynold Alberts MD LAB MICROBIOLOGY - GENERAL ORDERABLES Final Result Performing Organization Address [facility]/ZIP Co de Phone Number [facility] [address] [place] [address] * Iron Panel (Fe, TIBC, TSAT) (08/15/2024 9:44 AM EDT) TIBC 330 250 - 450 ug/dL [facility] UIBC 241 111 - 343 ug/dL [facility] Iron 89 38 - 169 ug/dL [facility] Iron Saturation (TSat) 27 15 - 55 % [facility] Blood specimen (specimen) Venous blood / Unknown 08/15/2024 9:44 AM EDT 08/15/2024 Reynold Alberts MD LAB BLOOD ORDERABLES Final Result Performing Organization Address [facility] de Phone Number [facility] [place] [address] [place] [address] * Urine Albumin / Creatinine Ratio (08/15/2024 9:44 AM EDT) Creatinine, Ur 140.6 Not Estab. mg/dL [facility] Albumin, Urine 15.0 Not Estab. ug/mL [facility] Albumin/Creatin ine Ratio 11 0 - 29 mg/g creat [facility] Comment: ? Normal: ?0 - ??29 ? Moderately increased: 30 - 300 ? Severely increased: ? >300 Urine specimen (specimen) Urine specimen obtained by clean catch procedure / Unknown 08/15/2024 9:44 AM EDT 08/15/2024 Reynold Alberts MD LAB URINE ORDERABLES Final Result Performing Organization Address City/[facility] Co de Phone Number [facility] [address] [place] [address] * Vitamin D 25 Hydroxy (08/15/2024 9:44 AM EDT) Vitamin D, 25-OH, Total 40.4 30.0 - 100.0 ng/mL [facility] Comment: Vitamin D deficiency has been defined by the [place] of Medicine and an Endocrine Society practice guideline as a level of serum 25-OH vitamin D less than 20 ng/mL (1,2). The Endocrine Society went on to further define vitamin D insufficiency as a level between 21 and 29 ng/mL (2). 1. IOM ([place] of [employer]). 2010. Dietary reference ?? intakes for calcium and D. [place]: The ?? National Academies Press. 2. Domonique MF, Sonali NC, Fritz OCONNELL, et al. ?? Evaluation, treatment, and prevention of vitamin D ?? deficiency: an Endocrine Society clinical practice ?? guideline. JCEM. 2010; 96(7):1911-30. Blood specimen (specimen) Venous blood / Unknown 08/15/2024 9:44 AM EDT 08/15/2024 Reynold Alberts MD LAB BLOOD ORDERABLES Final Result Performing Organization Address City/[facility]/ZIP Co de Phone Number [facility] [address] [place] [address] * (ABNORMAL) CBC and Differential (08/15/2024 9:44 AM EDT) WBC 8.2 3.4 - 10.8 x10E3/uL [facility] RBC 3.69(L) 4.14 - 5.80 x10E6/uL [facility] Hemoglobin 11.0(L) 13.0 - 17.7 g/dL [facility] Hematocrit 34.6(L) 37.5 - 51.0 % [facility] MCV 94 79 - 97 fL [facility] MCH 29.8 26.6 - 33.0 pg [facility] MCHC 31.8 31.5 - 35.7 g/dL [facility] RDW 13.0 11.6 - 15.4 % [facility] Platelets 220 150 - 450 x10E3/uL [facility] Neutrophils Relative 76 Not Estab. % [facility] Lymphocytes Relative 12 Not Estab. % [facility] Monocytes 9 Not Estab. % [facility] Eosinophils Relative 3 Not Estab. % [facility] Basophils Relative 0 Not Estab. % [facility] Neutrophils Absolute 6.2 1.4 - 7.0 x10E3/uL [facility] Lymphocytes Absolute 1.0 0.7 - 3.1 x10E3/uL [facility] Monocytes Absolute 0.8 0.1 - 0.9 x10E3/uL [facility] Eosinophils Absolute 0.3 0.0 - 0.4 x10E3/uL [facility] Basophils Absolute 0.0 0.0 - 0.2 x10E3/uL [facility] Immature Granulocytes 0 Not Estab. % [facility] Immature Grans (Absolute) 0.0 0.0 - 0.1 x10E3/uL [facility] Blood specimen (specimen) Venous blood / Unknown 08/15/2024 9:44 AM EDT 08/15/2024 Reynold Alberts MD LAB BLOOD ORDERABLES Final Result Performing Organization Address City/[facility]/ZIP Co de Phone Number [facility] [address] [place] [address] * Uric Acid (08/15/2024 9:44 AM EDT) Uric Acid 7.3 3.8 - 8.4 mg/dL [facility] Comment:Therapeutic target f or gout patients: <6.0 Blood specimen (specimen) Venous blood / Unknown 08/15/2024 9:44 AM EDT 08/15/2024 Reynold Alberts MD LAB BLOOD ORDERABLES Final Result Performing Organization Address City/[facility]/ZIP Co de Phone Number [facility] [address] [place] [address] * ALT (08/15/2024 9:44 AM EDT) ALT (SGPT) 8 0 - 44 IU/L [facility] Blood specimen (specimen) Venous blood / Unknown 08/15/2024 9:44 AM EDT 08/15/2024 Reynold Alberts MD LAB BLOOD ORDERABLES Final Result Performing Organization Address City/[facility]/ZIP Co de Phone Number [facility] [address] [place] [address] * AST (08/15/2024 9:44 AM EDT) AST (SGOT) 14 0 - 40 IU/L [facility] Blood specimen (specimen) Venous blood / Unknown 08/15/2024 9:44 AM EDT 08/15/2024 Reynold Alberts MD LAB BLOOD ORDERABLES Final Result Performing Organization Address City/[facility]/ZIP Co de Phone Number [facility] [address] [place] [address] * PTH, Intact (08/15/2024 9:44 AM EDT) Pathologist [facility] PTH 64 15 - 65 pg/mL [facility] [place] Blood specimen (specimen) Venous blood / Unknown 08/15/2024 9:44 AM EDT 08/15/2024 Reynold Alberts MD LAB BLOOD ORDERABLES Final Result Performing Organization Address [facility] de Phone Number [facility] [place] [address] [place] [address] * (ABNORMAL) Magnesium (08/15/2024 9:44 AM EDT) Pathologist [facility] Magnesium 1.5(L) 1.6 - 2.3 mg/dL [facility] [place] Blood specimen (specimen) Venous blood / Unknown 08/15/2024 9:44 AM EDT 08/15/2024 Reynold Alberts MD LAB BLOOD ORDERABLES Final Result Performing Organization Address [facility] Co de Phone Number [employer] [facility] [place] [address] [place] [address] * Ferritin (08/15/2024 9:44 AM EDT) Ferritin 51 30 - 400 ng/mL [facility] [place] Blood specimen (specimen) Venous blood / Unknown 08/15/2024 9:44 AM EDT 08/15/2024 Reynold Alberts MD LAB BLOOD ORDERABLES Final Result [facility] [place] [address] [place] [address] * CK (08/15/2024 9:44 AM EDT) Pathologist [facility] Creatine Kinase (CK/CPK) 55 41 - 331 U/L [facility] [place] Blood specimen (specimen) Venous blood / Unknown 08/15/2024 9:44 AM EDT 08/15/2024 Reynold Alberts MD LAB BLOOD ORDERABLES Final Result Performing Organization Address City/[facility]/ZIP Co de Phone Number [facility] [place] [address] [place] [address] * (ABNORMAL) Renal Function Panel (08/15/2024 9:44 AM EDT) [facility] Glucose 99 70 - 99 mg/dL [facility] [place] BUN 35(H) 8 - 27 mg/dL [facility] [place] Creatinine 1.96(H) 0.76 - 1.27 mg/dL [facility] [place] eGFR CKD-EPI CR 2020 36(L) >59 mL/min/1.7 3 [facility] [place] BUN/Creatinine Ratio 18 10 - 24 [facility] [place] Sodium 143 134 - 144 mmol/L [facility] [place] Potassium 5.4(H) 3.5 - 5.2 mmol/L [facility] [place] Chloride 110(H) 96 - 106 mmol/L [facility] [place] Bicarbonate (CO2) 17(L) 20 - 29 mmol/L [facility] [place] Calcium 8.9 8.6 - 10.2 mg/dL [facility] [place] Albumin 4.3 3.8 - 4.8 g/dL [facility] [place] Phosphorus 2.9 2.8 - 4.1 mg/dL [facility] [place] Blood specimen (specimen) Venous blood / Unknown 08/15/2024 9:44 AM EDT 08/15/2024 Reynold Alberts MD LAB BLOOD ORDERABLES Final Result Performing Organization Address City/[facility]/ZIP Co de Phone Number [facility] [place] [address] [place] [address] * Lipid panel (08/15/2024 9:44 AM EDT) Cholesterol 144 100 - 199 mg/dL [facility] [place] Triglycerides 76 0 - 149 mg/dL [facility] [place] HDL 44 >39 mg/dL [facility] [place] VLDL Cholesterol Asa 15 5 - 40 mg/dL [facility] [place] LDL Calculated 85 0 - 99 mg/dL [facility] [place] Blood specimen (specimen) Venous blood / Unknown 08/15/2024 9:44 AM EDT 08/15/2024 Reynold Alberts MD LAB BLOOD ORDERABLES Final Result [facility] [place] [address] [place] [address] from Last [address] [place] [address] [place] [address] [facility] Care Teams Cushion Builder Relationship Specialty Start Date End Date Forrest Ayoub NP [address] [place] [address] PCP - General Nurse Practitioner 11/27/19
--- OUTSIDE RECORDS SUMMARY | 2024-09-14 10:54 | XMS_ITS | Encounter Summary ---
Author Organization [facility] Address [address] [place] [address] Phone Care Team Providers Care Automation Clerk Name Role Phone Forrest Ayoub NP Primary Care Provider [phone] Encounter Details Date Type Department Care Team (Late Contact Info) Description 11/19/2022 Documentation Only [facility] [address] [place] [phone] Darrell Parekh PA Social History Tobacco Use [...] Visit [facility] [address] [place] [address] Reynold Alberts MD [address] [place] [address] [place] [phone] documented as of this encounter Visit Diagnoses Not on filedocumented in this encounter Care Teams Automation Clerk Relationship Specialty Start Date End Date Forrest Ayoub NP [address] [place] [address] PCP - General Nurse Practitioner 11/27/19 documented as of this encounter
--- OUTSIDE RECORDS SUMMARY | 2024-09-14 10:54 | XMS_ITS | Encounter Summary ---
Author Organization [facility] [place] [address] Phone Care Team Providers Care Education Manager Name Role Phone JaidaildaForrest gilliam LENA Primary Care Provider [phone] Encounter Details Date Type Department Care Team (Late st Contact Info) Description 11/11/2022 Documentation Only [facility] [address] [place] [address] [place]alli [place], [place] [address] [place] [address] Social History Tobacco Use Types [...] Visit [facility] [place] [address] [place] [address] Reynold Alberts MD [address] [place] [address] documented as of this encounter Visit Diagnoses Not on filedocumented in this encounter Care Teams Education Manager Relationship Specialty Start Date End Date Forrest Ayoub [place] [address] PCP - General Nurse Practitioner 11/27/19 documented as of this encounter
--- OUTSIDE RECORDS SUMMARY | 2024-09-14 10:54 | XMS_ITS | Encounter Summary ---
Author Organization [facility] [place] [address] Phone Care Team Providers Care Dater Assembler Name Role Phone JaidaildaForrest gilliam LENA Primary Care Provider [phone] Encounter Details Date Type Department Care Team (Late st Contact Info) Description 09/28/2023 Documentation Only [facility] [address] [place] [address] Angela [place], [place] [address] [place] [address] Social History Tobacco Use Types [...] Visit [facility] [place] [address] [place] [address] Reynold Alberts MD [address] [place] [address] documented as of this encounter Visit Diagnoses Not on filedocumented in this encounter Care Teams Dater Assembler Relationship Specialty Start Date End Date Forrest Ayoub NP [facility] [place] [address] PCP - General Nurse Practitioner 11/27/19 documented as of this encounter
--- OUTSIDE RECORDS SUMMARY | 2024-09-14 10:54 | XMS_ITS | Encounter Summary ---
Author Organization [facility] [place], Address [address] [place] [address] Phone Care Team Providers Care Catalogue And Special Products Manager Name Role Phone Gordonmane Forrest PAREDES Primary Care Provider [phone] Reason for Visit * Reason Comments Med Refill Encounter Details Date Type Department Care Team (Late Contact Info) Description 04/13/2020 Refill [facility] [address] [place] [address] Rajiv Ghosh MD [address] [facility] [address] [place] [address] Social History Tobacco Use Types Packs/Day Years [...] have Coronavirus / COVID-19? No / Unsure 04/10/2020 9:50 AM EST documented as of this encounter Plan of Treatment Upcoming Encounters Date Type Department Care Team (Late Contact Info) Description 10/25/2024 11:30 AM EDT Office Visit [facility] [address] [place] [phone] Reynold Alberts MD [address] [place] [address] documented as of this encounter Visit Diagnoses Not on filedocumented in this encounter Care Teams Catalogue And Special Products Manager Relationship Specialty Start Date End Date Forrest Ayoub NP [address] [place] [address] PCP - General Nurse Practitioner 11/27/19 documented as of this encounter
--- NOTE | 2024-09-14 11:25 | AM.OFFWIN_ITS ---
Intake Vital Signs 09/14/24 11:45 Weight 205 lb BP 132/80 Blood Pressure Location Lt brachial Position Sitting Pulse 83 Pulse Source Pulse Oximeter Temp 97.7 F Temp Source Oral Pulse Oximetry (%) 98 Oxygen Delivery Method Room Air Intake Visit Reasons: EP Upper Respiratory symptoms Intake Note: Patient here for cough, congestion and sob that has been present for about 3 days. Patient Tobacco Use Status: Former Tobacco user Do you need a note to return to daycare/school/sports/work: No HPI HPI Comments History of Present Illness Details 73 y/o Male patient who presents to the walk in clinic with c/o cough, congestion and sob that has been present for about 3-4 days. Pt c/o Fatigue, and headaches. Denies Fevers, chills, nausea or vomiting. [facility] Medical History (Updated 09/14/24 @ 13:42 by Cony Olivarez NP) Community acquired bacterial pneumonia Cough Acute respiratory disease COPD (chronic obstructive pulmonary disease) AV fistula ESRD (end stage renal disease) Personal history of immunosupression therapy DVT (deep venous thrombosis) Pulmonary embolism Elevated cholesterol Anemia Roberts esophagus GERD (gastroesophageal reflux disease) Chronic kidney disease Hydronephrosis LOVE (acute kidney injury) HTN (hypertension) Depression Surgical History Hx of foot surgery Hx of kidney transplant H/O right inguinal hernia repair Hx of endoscopy Hx of colonoscopy Social History Housing: House Are you a primary nursing care partner to a significant other at home: No Do you presently have visiting nurse or other home services: No Patient Tobacco Use Status: Former Tobacco user Tobacco use type: Cigarette Years Smoked: 45 e-Cigarette/Vaping Use: Never Used Second Hand Smoke Exposure: No service: No Current occupational status: employed Current occupation: [employer] / left hand dominant Current occupational exposures/hazards: Yes Cognitive needs: No Hearing needs: No Vision needs: No Review of Systems Const All systems reviewed & are unremarkable except as noted in HPI and below Physical Exam Vital Signs: Last Vital Signs Temp 97.7 F 09/14/24 11:45 Pulse 83 09/14/24 11:45 BP 132/80 09/14/24 11:45 Pulse Ox 98 09/14/24 11:45 Oxygen Delivery Method Room Air 09/14/24 11:45 Const General: no acute distress; No comfortable Nutritional Appearance: well nourished Orientation/consciousness: patient oriented x3 HEENT Head: Yes normocephalic Ears: external ears normal and TM's normal bilaterally General nose exam: Normal external nose present Face and sinus: Yes sinuses nontender Mouth: moist mucous membranes Throat: Yes uvula midline Resp Effort & Inspection: normal respiratory effort and able to speak in complete sentences Auscultation: clear to auscultation bilaterally, crackles on the right in the lower lung barbosa and in the upper lung barbosa, rales on the right in the lower lung barbosa and in the upper lung barbosa, no rhonchi and no wheezes Cardio Rhythm: regular rhythm Heart sounds: S1 normal heart sound present and S2 normal heart sound present Neuro Other: Tremors seen upper body. General: patient oriented x3, gait normal and moves all extremities Gait exam (Neuro): Shuffling gait present Motor exam (neuro): 5/5 motor strength present throughout Psych Speech and movement: Normal speech and movement present Assessment & Plan Assessment & Plan (1) Acute respiratory disease: Code(s): J06.9 - Acute upper respiratory infection, unspecified Plan: Ordered SARs, but order cancelled due to wrong Swab used. Acetaminophen for pain relief. Rest and hydrate well with warm fluids. (2) Cough: Code(s): R05.9 - Cough, unspecified Qualifiers: Cough type: acute Qualified Code(s): R05.1 - Acute cough Plan: Ordered Chest Xray. Ordered Cough medicine. Orders: Orders XR chest 2V Today J06.9 - Acute upper respiratory infection, unspecified, R05.9 - Cough, unspecified SARS-CoV2/FLU/RSV Today J06.9 - Acute upper respiratory infection, unspecified Medications: New benzonatate 200 mg (2 x 100 mg) PO BID 60 caps 0RF R05.9 - Cough, unspecified dextromethorphan-guaifenesin 5-100 mg/5 mL (Robitussin Cough-Chest Congestion DM) 10 mL PO Q4-8H PRN 1,000 mL 0RF cough J06.9 - Acute upper respiratory infection, unspecified, R05.9 - Cough, unspecified Coding Level of Care Code Est Pt Level 4 (98133) Diagnoses Acute respiratory disease J06.9 Acute cough R05.1 Cough type: acute Time Spent (min) 20
[2024-09-14 11:45] VITALS: BP 132/80; PULSE 83; TEMP 36.5; O2SAT 98
== END 2024-09-14 12:39 | disposition home or self-care (01) ==
PROVIDERS: PCP Nurse Practitioner Family; Visit Provider Nurse Practitioner Family
DX: J06.9 Acute upper respiratory infection, unspecified (principal); R05.1 Acute cough

== ENCOUNTER 2024-09-14 10:23 | Outpatient (REF) | payer MEDICARE, SELFPAY ==
--- NOTE | ~2024-09-14 | XR_ITS ---
EXAMINATION: XR CHEST CLINICAL INFORMATION: R05.9 - Cough, unspecified; cough for 3 days. COMPARISON: None available. TECHNIQUE: 2 views of the chest were obtained. FINDINGS: The cardiac, hilar, and mediastinal contours are normal. Aortic mural calcifications. There are patchy right upper lobe and right lower lobe airspace opacities. The left lung appears grossly clear. There is no pneumothorax or pleural effusion. There is no focal osseous or soft tissue abnormality. XR/XR chest 2V IMPRESSION: Right upper and right lower lobe airspace opacity suspicious for pneumonia. No effusions. Recommend radiographic follow-up after treatment to ensure resolution. Electronically signed by: Klaus Gonzalez MD 09/14/2024 12:40 PM EDT
--- OUTSIDE RECORDS SUMMARY | 2024-09-14 12:31 | XMS_ITS | Encounter Summary ---
Author Organization [facility] Address [address] [place] [address] Phone Care Team Providers Care Forest Fire Fighters Dispatcher Name Role Phone Forrest Ayoub NP Primary Care Provider [phone] Encounter Details Date Type Department Care Team (Late Contact Info) Description 07/07/2022 Documentation Only [facility] [address] [place] [address] Darrell Parekh PA Social History Tobacco Use [...] Visit [facility] [address] [place] [address] Reynold Alberts MD [address] [place] [address] [place] [address] documented as of this encounter Visit Diagnoses Not on filedocumented in this encounter Care Teams Forest Fire Fighters Dispatcher Relationship Specialty Start Date End Date Forrest Ayoub NP [address] [place] [address] PCP - General Nurse Practitioner 11/27/19 documented as of this encounter
--- OUTSIDE RECORDS SUMMARY | 2024-09-14 12:31 | XMS_ITS | Encounter Summary ---
Author Organization [facility], Address [address] [place] [address] Phone Care Team Providers Care Training And Quality Manager Name Role Phone Gordonmane Forrest PAREDES Primary Care Provider [phone] Reason for Visit * Reason Comments Med Refill Encounter Details Date Type Department Care Team (Late Contact Info) Description 10/17/2020 Refill [facility] [address] [place] [address] Rajiv Ghosh MD [address] [facility] [facility] [place] [address] Social History Tobacco Use Types Packs/Day Years [...] Office Visit [facility] [address] [place] [phone] Reynold Alberts MD [address] [place] [phone] documented as of this encounter Visit Diagnoses Not on filedocumented in this encounter Care Teams Training And Quality Manager Relationship Specialty Start Date End Date Forrest Ayoub NP [address] [place] [address] PCP - General Nurse Practitioner 11/27/19 documented as of this encounter
--- OUTSIDE RECORDS SUMMARY | 2024-09-14 12:31 | XMS_ITS | Encounter Summary ---
Author Organization [facility] Address [address] [place] [address] Phone Care Team Providers Care National Account Executive Name Role Phone Forrest Ayoub NP Primary Care Provider [phone] Encounter Details Date Type Department Care Team (Late Contact Info) Description 05/14/2022 Documentation Only [facility] [address] [place] [address] Darrell Parekh PA Social History Tobacco Use [...] Visit [facility] [address] [place] [address] Reynold Alberts MD [address] [place] [address] [place] [phone] documented as of this encounter Visit Diagnoses Not on filedocumented in this encounter Care Teams National Account Executive Relationship Specialty Start Date End Date Forrest Ayoub NP [address] [place] [address] PCP - General Nurse Practitioner 11/27/19 documented as of this encounter
--- OUTSIDE RECORDS SUMMARY | 2024-09-14 12:31 | XMS_ITS | Encounter Summary ---
Author Organization [facility] Address [address] [place] [address] Phone Care Team Providers Care Cafeteria Associate Name Role Phone Forrest Ayoub NP Primary Care Provider [phone] Encounter Details Date Type Department Care Team (Late Contact Info) Description 10/20/2021 Documentation Only [facility] [address] [place] [address] Darrell Parekh PA Social History Tobacco Use [...] Visit [facility] [address] [place] [address] Reynold Alberts MD [address] [place] [address] [place] [address] documented as of this encounter Visit Diagnoses Not on filedocumented in this encounter Care Teams Cafeteria Associate Relationship Specialty Start Date End Date Forrest Ayoub NP [address] [place] [address] PCP - General Nurse Practitioner 11/27/19 documented as of this encounter
--- OUTSIDE RECORDS SUMMARY | 2024-09-14 12:31 | XMS_ITS | Encounter Summary ---
Author Organization [facility], [place] [address] [place] [address] Phone Care Team Providers Care Supplemental Manager Name Role Phone GordonForrest gilliam LENA Primary Care Provider [phone] Reason for Visit * Reason Comments Med Refill Encounter Details Date Type Department Care Team (Late Contact Info) Description 10/12/2022 Refill [facility] [address] [place] [phone] Reynold Alberts MD [address] [place] [address] [place] [address] Social History Tobacco Use Types [...] [facility] [address] [place] [phone] Reynold Alberts MD [address] [place] [address] [place] [address] documented as of this encounter Visit Diagnoses Not on filedocumented in this encounter Care Teams Supplemental Manager Relationship Specialty Start Date End Date Forrest Ayoub NP [facility] [place] [address] PCP - General Nurse Practitioner 11/27/19 documented as of this encounter
--- OUTSIDE RECORDS SUMMARY | 2024-09-14 12:31 | XMS_ITS | Encounter Summary ---
Author Organization [facility] Address [address] [place] [address] Phone Care Team Providers Care Derrick Follower Name Role Phone Forrest Ayoub NP Primary Care Provider [phone] Encounter Details Date Type Department Care Team (Late Contact Info) Description 07/21/2022 Documentation Only [facility] [address] [place] [address] Darrell Parekh PA Social History Tobacco Use [...] Visit [facility] [address] [place] [address] Reynold Albetrs MD [address] [place] [address] [place] [address] documented as of this encounter Visit Diagnoses Not on filedocumented in this encounter Care Teams Derrick Follower Relationship Specialty Start Date End Date Forrest Ayoub NP [address] [place] [address] PCP - General Nurse Practitioner 11/27/19 documented as of this encounter
--- OUTSIDE RECORDS SUMMARY | 2024-09-14 12:31 | XMS_ITS | Encounter Summary ---
Author Organization [facility], [place] [address] [place] [address] Phone Care Team Providers Care Labor Conciliator Name Role Phone GordonForrest gilliam LENA Primary Care Provider [phone] Reason for Visit * Reason Comments Med Refill Encounter Details Date Type Department Care Team (Late Contact Info) Description 12/17/2020 Refill [facility] [address] [place] [address] Rajiv Ghosh MD [address] [facility] [place] [address] Social History Tobacco Use Types [...] Visit [facility] [place] [address] [facility] [address] [place] [address] Reynold Alberts MD [address] [facility] [place] [address] documented as of this encounter Visit Diagnoses Not on filedocumented in this encounter Care Teams Labor Conciliator Relationship Specialty Start Date End Date Forrest Ayoub NP [address] [place] [address] PCP - General Nurse Practitioner 11/27/19 documented as of this encounter
--- OUTSIDE RECORDS SUMMARY | 2024-09-14 12:31 | XMS_ITS | Encounter Summary ---
Author Organization [facility] [place], Address [address] [place] [address] Phone Care Team Providers Care Glove Printer Name Role Phone Gordonmane Forrest PAREDES Primary Care Provider [phone] Reason for Visit * Reason Comments Med Refill Encounter Details Date Type Department Care Team (Late Contact Info) Description 04/13/2020 Refill [facility] [address] [place] [address] Rajiv Ghosh MD [address] [facility] [place] [address] Social History Tobacco Use Types Packs/Day Years [...] Office Visit [facility] [address] [place] [address] Reynold Alberts MD [address] [place] [address] documented as of this encounter Visit Diagnoses Not on filedocumented in this encounter Care Teams Glove Printer Relationship Specialty Start Date End Date Forrest Ayoub NP [address] [place] [address] PCP - General Nurse Practitioner 11/27/19 documented as of this encounter
--- OUTSIDE RECORDS SUMMARY | 2024-09-14 12:31 | XMS_ITS | Clinical Summary ---
Author Organization [facility], Address [address] [place] [address] [place] [address] Phone Care Team Providers Care Digital Manager Name Role Phone Forrest Ayoub NP Primary Care Provider [phone] Allergies Active Allergy Reactions Criticality Noted Date [...] Telephone [facility] [address] [place] [address] Christi Prieto MA 08/18/2024 10:30 AM EDT Office Visit [facility] [address] [place] [address] Reynold Alberts MD Personal history of immunosuppression therapy (Primary Dx); Kidney replaced by transplant; Stage 3b chronic kidney disease (HCC); Hypertension; Anemia in chronic kidney disease; Hyperkalemia 08/18/2024 Office Communication [facility] [address] [place] [address] Yanna Curtis 08/09/2024 Orders Only [facility] [address] [place] [address] Christi Prieto MA Kidney replaced by transplant [...] Visit [facility] [address] [place] [address] Reynold Alberts MD [address] [facility] [place] [address] Health Maintenance Due Date Last [...] Sensitive, LC/MS/MS (08/15/2024 9:44 AM EDT) Pathologist [facility] Tacrolimus by Immunoassay 7.8 5.0 - 20.0 ng/mL [facility] Comment: Detection Limit = 0.8 ng/mL Target [...] Immunoassay. ? Please note reference interval change [facility] will offer rebaseline testing (Test No. [id number]) through August 23, 2024. ??The rebaseline test will include results from both the current method (Yield Software) and the new method (Jessenia). ??All test results indicate the stain applicator of the test on the laboratory report. ??The rebaseline test for tacrolimus immunoassay is charged at the durbin for the new test; the test for the retiring method is performed at no additional charge. 08/15/2024 9:44 AM EDT 08/15/2024 us Reynold Alberts MD LAB BLOOD ORDERABLES Final Result [facility] [address] [place] [address] * Urinalysis, Complete w/reflex to Culture (08/15/2024 9:44 AM EDT) Specific [place], Urine 1.020 1.005 - 1.030 [facility] pH Urine 5.5 5.0 - 7.5 [facility] Color, Urine Yellow Yellow [facility] Appearance Urine Clear Clear [facility] WBC Esterase Urine Negative Negative [facility] Protein, Ur Trace Negative/Tra ce [facility] Glucose, Ur Negative Negative [facility] Ketones, Urine Negative Negative [facility] Blood Urine Negative Negative [facility] Bilirubin Urine Negative Negative [facility] Urobilinogen Urine 0.2 0.2 - 1.0 mg/dL [facility] Nitrite, Urine Negative Negative [facility] Microscopic Examination Comment [facility] Comment:Microscopic follows if indicated. Other Microsc. Observations See below: [facility] Comment:Microscopic was mary cated and was performed. URINALYSIS REFLEX Comment [facility] [phone] Comment:This specimen will n ot reflex to a Urine Culture. Urine specimen (specimen) Urine specimen obtained by clean catch procedure / Unknown 08/15/2024 9:44 AM EDT 08/15/2024 Reynold Alberts MD LAB URINE ORDERABLES Final Result [facility] [address] [place] [address] * Mycophenolic Acid and Metabo. (08/15/2024 9:44 AM EDT) Mycophenolic Acid 3.2 1.0 - 3.5 ug/mL [facility] Mycophenolic Acid Glucuronide 79 15 - 125 ug/mL [facility] Blood specimen (specimen) Venous blood / Unknown 08/15/2024 9:44 AM EDT 08/15/2024 Narrative [facility] - 08/19/2024 1:05 PM EDT Test(s) 031658-Zarbskgdohnk Acid; [id number]- Mycophenolic Acid Glucuronide was developed and its performance characteristics determined by [facility]. It has not been cleared or approved by the Food and Drug Administration. Reynold Alberts MD LAB BLOOD ORDERABLES Final Result Performing Organization Address City/[facility]/ZIP Co de Phone Number [facility] [address] [place] [phone] * Microscopic Examination (08/15/2024 9:44 AM EDT) WBC, Urine None seen 0 - 5 /hpf [facility] RBC, Urine None seen 0 - 2 /hpf [facility] Squamous Epithelial, Urine None seen 0 - 10 /hpf [facility] Casts None seen None seen /lpf [facility] Bacteria, Urine None seen None seen/Few [facility] 08/15/2024 9:44 AM EDT 08/15/2024 Reynold Alberts MD LAB MICROBIOLOGY - GENERAL ORDERABLES Final Result Performing Organization Address [facility]/ZIP Co de Phone Number [facility] [address] [place] [address] * Iron Panel (Fe, TIBC, TSAT) (08/15/2024 9:44 AM EDT) TIBC 330 250 - 450 ug/dL [facility] UIBC 241 111 - 343 ug/dL [facility] Iron 89 38 - 169 ug/dL [facility] Iron Saturation (TSat) 27 15 - 55 % [facility] Blood specimen (specimen) Venous blood / Unknown 08/15/2024 9:44 AM EDT 08/15/2024 Reynold Alberts MD LAB BLOOD ORDERABLES Final Result Performing Organization Address [facility] de Phone Number [facility] [address] [place] [address] * Urine Albumin / Creatinine Ratio (08/15/2024 9:44 AM EDT) Creatinine, Ur 140.6 Not Estab. mg/dL [facility] Albumin, Urine 15.0 Not Estab. ug/mL [facility] Albumin/Creatin ine Ratio 11 0 - 29 mg/g creat [facility] Comment: ? Normal: ?0 - ??29 ? Moderately increased: 30 - 300 ? Severely increased: ? >300 Urine specimen (specimen) Urine specimen obtained by clean catch procedure / Unknown 08/15/2024 9:44 AM EDT 08/15/2024 Reynold Alberts MD LAB URINE ORDERABLES Final Result Performing Organization Address City/[facility] Co de Phone Number [facility] [address] [place] [address] * Vitamin D 25 Hydroxy (08/15/2024 9:44 AM EDT) Vitamin D, 25-OH, Total 40.4 30.0 - 100.0 ng/mL [facility] Comment: Vitamin D deficiency has been defined by the [place] of Medicine and an Endocrine Society practice guideline as a level of serum 25-OH vitamin D less than 20 ng/mL (1,2). The Endocrine Society went on to further define vitamin D insufficiency as a level between 21 and 29 ng/mL (2). 1. IOM ([place] of Medicine). 2010. Dietary reference ?? intakes [...] BLOOD ORDERABLES Final Result Performing Organization Address City/[facility]/ZIP Co de Phone Number [facility] [address] [place] [address] * (ABNORMAL) CBC and Differential (08/15/2024 9:44 AM EDT) WBC 8.2 3.4 - 10.8 x10E3/uL [facility] RBC 3.69(L) 4.14 - 5.80 x10E6/uL [facility] Hemoglobin 11.0(L) 13.0 - 17.7 g/dL [facility] Hematocrit 34.6(L) 37.5 - 51.0 % [facility] MCV 94 79 - 97 fL [facility] MCH 29.8 26.6 - 33.0 pg [facility] MCHC 31.8 31.5 - 35.7 g/dL [facility] RDW 13.0 11.6 - 15.4 % [facility] Platelets 220 150 - 450 x10E3/uL [facility] Neutrophils Relative 76 Not Estab. % [facility] Lymphocytes Relative 12 Not Estab. % [facility] Monocytes 9 Not Estab. % [facility] Eosinophils Relative 3 Not Estab. % [facility] Basophils Relative 0 Not Estab. % [facility] Neutrophils Absolute 6.2 1.4 - 7.0 x10E3/uL [facility] Lymphocytes Absolute 1.0 0.7 - 3.1 x10E3/uL [facility] Monocytes Absolute 0.8 0.1 - 0.9 x10E3/uL [facility] Eosinophils Absolute 0.3 0.0 - 0.4 x10E3/uL [facility] Basophils Absolute 0.0 0.0 - 0.2 x10E3/uL [facility] Immature Granulocytes 0 Not Estab. % [facility] Immature Grans (Absolute) 0.0 0.0 - 0.1 x10E3/uL [facility] Blood specimen (specimen) Venous blood / Unknown 08/15/2024 9:44 AM EDT 08/15/2024 Reynold Alberts MD LAB BLOOD ORDERABLES Final Result Performing Organization Address City/[facility]/ZIP Co de Phone Number [facility] [address] [place] [address] * Uric Acid (08/15/2024 9:44 AM EDT) Uric Acid 7.3 3.8 - 8.4 mg/dL [facility] Comment:Therapeutic target f or gout patients: <6.0 Blood specimen (specimen) Venous blood / Unknown 08/15/2024 9:44 AM EDT 08/15/2024 Reynold Alberts MD LAB BLOOD ORDERABLES Final Result Performing Organization Address City/[facility]/ZIP Co de Phone Number [facility] [address] [place] [address] * ALT (08/15/2024 9:44 AM EDT) ALT (SGPT) 8 0 - 44 IU/L [facility] Blood specimen (specimen) Venous blood / Unknown 08/15/2024 9:44 AM EDT 08/15/2024 Reynold Alberts MD LAB BLOOD ORDERABLES Final Result Performing Organization Address City/[facility]/ZIP Co de Phone Number [facility] [address] [place] [address] * AST (08/15/2024 9:44 AM EDT) AST (SGOT) 14 0 - 40 IU/L [facility] Blood specimen (specimen) Venous blood / Unknown 08/15/2024 9:44 AM EDT 08/15/2024 Reynold Alberts MD LAB BLOOD ORDERABLES Final Result Performing Organization Address City/[facility]/ZIP Co de Phone Number [facility] [address] [place] [address] * PTH, Intact (08/15/2024 9:44 AM EDT) Pathologist [facility] PTH 64 15 - 65 pg/mL [facility] Blood specimen (specimen) Venous blood / Unknown 08/15/2024 9:44 AM EDT 08/15/2024 Reynold Alberts MD LAB BLOOD ORDERABLES Final Result Performing Organization Address [facility] de Phone Number [facility] [address] [place] [address] * (ABNORMAL) Magnesium (08/15/2024 9:44 AM EDT) Pathologist [facility] Magnesium 1.5(L) 1.6 - 2.3 mg/dL [facility] Blood specimen (specimen) Venous blood / Unknown 08/15/2024 9:44 AM EDT 08/15/2024 Reynold Alberts MD LAB BLOOD ORDERABLES Final Result Performing Organization Address [facility] Co de Phone Number [facility] [address] [place] [address] * Ferritin (08/15/2024 9:44 AM EDT) Ferritin 51 30 - 400 ng/mL [facility] Blood specimen (specimen) Venous blood / Unknown 08/15/2024 9:44 AM EDT 08/15/2024 Reynold Alberts MD LAB BLOOD ORDERABLES Final Result [facility] [address] [place] [address] * CK (08/15/2024 9:44 AM EDT) Pathologist [facility] Creatine Kinase (CK/CPK) 55 41 - 331 U/L [facility] Blood specimen (specimen) Venous blood / Unknown 08/15/2024 9:44 AM EDT 08/15/2024 Reynold Alberts MD LAB BLOOD ORDERABLES Final Result Performing Organization Address City/[facility]/ZIP Co de Phone Number [facility] [address] [place] [address] * (ABNORMAL) Renal Function Panel (08/15/2024 9:44 AM EDT) [facility] Glucose 99 70 - 99 mg/dL [facility] BUN 35(H) 8 - 27 mg/dL [facility] Creatinine 1.96(H) 0.76 - 1.27 mg/dL [facility] eGFR CKD-EPI CR 2020 36(L) >59 mL/min/1.7 3 [facility] BUN/Creatinine Ratio 18 10 - 24 [facility] Sodium 143 134 - 144 mmol/L [facility] Potassium 5.4(H) 3.5 - 5.2 mmol/L [facility] Chloride 110(H) 96 - 106 mmol/L [facility] Bicarbonate (CO2) 17(L) 20 - 29 mmol/L [facility] Calcium 8.9 8.6 - 10.2 mg/dL [facility] Albumin 4.3 3.8 - 4.8 g/dL [facility] Phosphorus 2.9 2.8 - 4.1 mg/dL [facility] Blood specimen (specimen) Venous blood / Unknown 08/15/2024 9:44 AM EDT 08/15/2024 Reynold Alberts MD LAB BLOOD ORDERABLES Final Result Performing Organization Address City/[facility]/ZIP Co de Phone Number [facility] [address] [place] [address] * Lipid panel (08/15/2024 9:44 AM EDT) Cholesterol 144 100 - 199 mg/dL [facility] Triglycerides 76 0 - 149 mg/dL [facility] HDL 44 >39 mg/dL [facility] VLDL Cholesterol Asa 15 5 - 40 mg/dL [facility] LDL Calculated 85 0 - 99 mg/dL [facility] Blood specimen (specimen) Venous blood / Unknown 08/15/2024 9:44 AM EDT 08/15/2024 Reynold Alberts MD LAB BLOOD ORDERABLES Final Result [facility] [address] [place] [address] from Last [address] [place] [address] [address] [facility] Care Teams Digital Manager Relationship Specialty Start Date End Date Forrest Ayoub NP [address] [place] [address] PCP - General Nurse Practitioner 11/27/19
--- OUTSIDE RECORDS SUMMARY | 2024-09-14 12:31 | XMS_ITS | Encounter Summary ---
Author Organization [facility] [place] [address] Phone Care Team Providers Care Mortgage Protection Sales Name Role Phone JaidaildaForrest gilliam LENA Primary Care Provider [phone] Encounter Details Date Type Department Care Team (Late st Contact Info) Description 06/23/2022 Documentation Only [facility] [address] [place] [address] [place], [place] [address] [place] [address] Social History Tobacco Use Types [...] Visit [facility] [place] [address] [place] [address] Reynold Alberts MD [address] [place] [address] documented as of this encounter Visit Diagnoses Not on filedocumented in this encounter Care Teams Mortgage Protection Sales Relationship Specialty Start Date End Date Forrest Ayoub NP [facility] [place] [address] PCP - General Nurse Practitioner 11/27/19 documented as of this encounter
--- OUTSIDE RECORDS SUMMARY | 2024-09-14 12:31 | XMS_ITS | Encounter Summary ---
Author Organization [facility], Address [address] [place] [address] Phone Care Team Providers Care Sales Representative Advertising Name Role Phone Forrest Ayoub NP Primary Care Provider [phone] Reason for Visit * Reason Comments Med Refill Encounter Details Date Type Department Care Team (Late Contact Info) Description 06/12/2022 Refill [facility] [address] [place] [address] Darrell Parekh PA Social History Tobacco Use [...] Visit [facility] Of [place] [address] [facility] [place] [address] Reynold Alberts MD [address] [facility] [place] [address] documented as of this encounter Visit Diagnoses Not on filedocumented in this encounter Care Teams Sales Representative Advertising Relationship Specialty Start Date End Date Forrest Ayoub NP [address] [place] [address] PCP - General Nurse Practitioner 11/27/19 documented as of this encounter
--- OUTSIDE RECORDS SUMMARY | 2024-09-14 12:31 | XMS_ITS | Encounter Summary ---
Author Organization [facility] [place] [address] Phone Care Team Providers Care Harbor Boat Pilot Name Role Phone JaidaildaForrest gilliam LENA Primary Care Provider [phone] Encounter Details Date Type Department Care Team (Late st Contact Info) Description 04/21/2022 Documentation Only [facility] [address] [place] [address] [place]alli Kumari[place], [place] [address] [place] [address] Social History Tobacco Use Types [...] Visit [facility] [place] [address] [place] [address] Reynold Alberts MD [address] [facility] [place] [address] documented as of this encounter Visit Diagnoses Not on filedocumented in this encounter Care Teams Harbor Boat Pilot Relationship Specialty Start Date End Date Forrest Ayoub NP [facility] [place] [address] PCP - General Nurse Practitioner 11/27/19 documented as of this encounter
--- OUTSIDE RECORDS SUMMARY | 2024-09-14 12:31 | XMS_ITS | Encounter Summary ---
Author Organization [facility] [place] [address] [place] [address] Phone Care Team Providers Care Talent Acquisition Project Manager Name Role Phone Forrest Ayoub LENA Primary Care Provider [phone] Encounter Details Date Type Department Care Team (Late Contact Info) Description 08/26/2021 Documentation Only [facility] Of [address] [place] [address] Darrell Parekh PA Social History Tobacco [...] Visit [facility] [place] [address] [place] [address] Reynold Alberts MD [address] [facility] [place] [address] documented as of this encounter Visit Diagnoses Not on filedocumented in this encounter Care Teams Talent Acquisition Project Manager Relationship Specialty Start Date End Date Forrest Ayoub [place] [address] PCP - General Nurse Practitioner 11/27/19 documented as of this encounter
--- OUTSIDE RECORDS SUMMARY | 2024-09-14 12:31 | XMS_ITS | Encounter Summary ---
Author Organization [facility] [place] [address] Phone Care Team Providers Care Case Operator Name Role Phone JaidaildaForrest gilliam LENA Primary Care Provider [phone] Encounter Details Date Type Department Care Team (Late st Contact Info) Description 06/23/2022 Documentation Only [facility] [address] [place] [address] [place], [place] [address] [place] [address] Social History Tobacco Use Types [...] Visit [facility] [place] [address] [place] [address] Reynold Alberts MD [address] [facility] [address] [place] [address] documented as of this encounter Visit Diagnoses Not on filedocumented in this encounter Care Teams Case Operator Relationship Specialty Start Date End Date Forrest Ayoub NP [facility] [place] [address] PCP - General Nurse Practitioner 11/27/19 documented as of this encounter
--- OUTSIDE RECORDS SUMMARY | 2024-09-14 12:31 | XMS_ITS | Clinical Summary ---
Author Organization [facility] Address [address] [place] [address] Care Team Providers Care Portable Pinch Riveter Name Role Phone Pcp, No Primary Care Provider Unavailabl e Social History Tobacco Use Types Packs/Day Years Used Date Smoking Tobacco: Never Assessed Sex and Gender Information Value Date Recorded Sex Assigned at Male 07/08/2022 3:26 PM EDT Legal Sex Male 2:32 PM EDT Gender Identity Male 07/08/2022 3:26 PM EDT Sexual Orientation Heterosexual (straight) 07/08 3:26 PM EDT Plan of Treatment Health Maintenance Due Date Last Done Comments Hepatitis C Virus Screening 1950 DTaP/Tdap/Td Vaccines (1 - Tdap) 10/28/1970 Colonoscopy 10/28/1996 Pneumococcal Vaccines 50+ (1 of 1 - PCV) 10/28/2001 Zoster (Shingles) Vaccine (1 of 2) 10/28/2001 COVID-19 Vaccine (3 - season) 2023 06/27/2020, 05/30/2020 Influenza Vaccine 11/24/2024 02/06/2021, , 02/27/2020, Additional history exists RSV Vaccine 60 years and older and Patients (1 - 1-dose 75+ series) 10/28/2026 Hepatitis B Vaccines Aged Out No long er eligible based on patient's age to complete this topic Insurance BLUE [employer] MEDICARE OUT OF NETWORK Care Teams Portable Pinch Riveter Relationship Specialty Start Date End Date Pcp, No [address] [place] [address] PCP - General 08/20/21
--- OUTSIDE RECORDS SUMMARY | 2024-09-14 12:31 | XMS_ITS | Encounter Summary ---
Author Organization [facility] [place] [address] Phone Care Team Providers Care Pathology Technologist Name Role Phone JaidaildaForrest gilliam LENA Primary Care Provider [phone] Encounter Details Date Type Department Care Team (Late st Contact Info) Description 07/07/2022 Documentation Only [facility] [address] [place] [address] [place], [place] [address] [place] [address] Social History Tobacco Use Types [...] Visit [facility] [place] [address] [place] [address] Reynold Alberts MD [address] [place] [address] documented as of this encounter Visit Diagnoses Not on filedocumented in this encounter Care Teams Pathology Technologist Relationship Specialty Start Date End Date Forrest Ayoub NP [facility] [place] [address] PCP - General Nurse Practitioner 11/27/19 documented as of this encounter
--- OUTSIDE RECORDS SUMMARY | 2024-09-14 12:31 | XMS_ITS | Encounter Summary ---
Author Organization [facility], [place] [address] [place] [address] Phone Care Team Providers Care Corrugator Supervisor Name Role Phone GordonForrest gilliam LENA Primary Care Provider [phone] Reason for Visit * Reason Comments Med Refill Encounter Details Date Type Department Care Team (Late Contact Info) Description 02/06/2021 Refill [facility] [address] [place] [address] Rajiv Ghosh MD [address] [place] [address] Social History Tobacco Use Types [...] Visit [facility] Of [place] [address] [place] [address] Reynold Alberts MD [address] [place] [address] documented as of this encounter Visit Diagnoses Not on filedocumented in this encounter Care Teams Corrugator Supervisor Relationship Specialty Start Date End Date Forrest Ayoub NP [address] [place] [address] PCP - General Nurse Practitioner 11/27/19 documented as of this encounter
--- OUTSIDE RECORDS SUMMARY | 2024-09-14 12:31 | XMS_ITS | Encounter Summary ---
Author Organization [facility] Address [address] [place] [address] Phone Care Team Providers Care Long Term Care Social Worker Name Role Phone Forrest Ayoub NP Primary Care Provider [phone] Encounter Details Date Type Department Care Team (Late Contact Info) Description 07/07/2022 Documentation Only [facility] Of [address] [place] [address] Darrell Parekh PA Social History Tobacco Use [...] Visit [facility] Of [address] [place] [address] Reynold Alberts MD [address] [place] [address] [place] [address] documented as of this encounter Visit Diagnoses Not on filedocumented in this encounter Care Teams Long Term Care Social Worker Relationship Specialty Start Date End Date Forrest Ayoub NP [address] [place] [address] PCP - General Nurse Practitioner 11/27/19 documented as of this encounter
--- OUTSIDE RECORDS SUMMARY | 2024-09-14 12:31 | XMS_ITS | Encounter Summary ---
Author Organization [facility], Address [address] [place] [address] Phone Care Team Providers Care Rn Progressive Care Name Role Phone Gordonmane Forrest PAREDES Primary Care Provider [phone] Reason for Visit * Reason Comments Med Refill Encounter Details Date Type Department Care Team (Late Contact Info) Description 05/02/2020 Refill [facility] [address] [place] [address] Rajiv Ghosh MD [address] [place] [address] [place] [phone] Social History Tobacco Use Types Packs/Day Years [...] Office Visit [facility] [address] [place] [address] Reynold Alberts MD [address] [place] [address] documented as of this encounter Visit Diagnoses Not on filedocumented in this encounter Care Teams Rn Progressive Care Relationship Specialty Start Date End Date Forrest Ayoub NP [address] [place] [address] PCP - General Nurse Practitioner 11/27/19 documented as of this encounter
--- OUTSIDE RECORDS SUMMARY | 2024-09-14 12:31 | XMS_ITS | Encounter Summary ---
Author Organization [facility] [place] [address] Phone Care Team Providers Care Junior Project Manager Name Role Phone JaidaildaForrest gilliam LENA Primary Care Provider [phone] Encounter Details Date Type Department Care Team (Late st Contact Info) Description 09/28/2023 Documentation Only [facility] [address] [place] [address] [place], [place] [address] [place] [address] Social History Tobacco Use Types [...] Visit [facility] [place] [address] [place] [address] Reynold Alberts MD [address] [facility] [place] [address] documented as of this encounter Visit Diagnoses Not on filedocumented in this encounter Care Teams Junior Project Manager Relationship Specialty Start Date End Date Forrest Ayoub NP [facility] [place] [address] PCP - General Nurse Practitioner 11/27/19 documented as of this encounter
--- OUTSIDE RECORDS SUMMARY | 2024-09-14 12:32 | XMS_ITS | Encounter Summary ---
Author Organization [facility] [place] [address] [place] [address] Phone Care Team Providers Care Facing Baster Name Role Phone JaidaildaForrest gilliam LENA Primary Care Provider [phone] Encounter Details Date Type Department Care Team (Late st Contact Info) Description 11/11/2022 Documentation Only [facility] [address] [place] [address] [place], [place] [address] [place] [address] Social History Tobacco Use Types [...] Visit [facility] [place] [address] [place] [address] Reynold Alberts MD [address] [facility] [place] [address] documented as of this encounter Visit Diagnoses Not on filedocumented in this encounter Care Teams Facing Baster Relationship Specialty Start Date End Date Forrest Ayoub NP [place] [address] PCP - General Nurse Practitioner 11/27/19 documented as of this encounter
--- OUTSIDE RECORDS SUMMARY | 2024-09-14 12:32 | XMS_ITS | Encounter Summary ---
Author Organization [facility] Address [address] [place] [address] Phone Care Team Providers Care Freelance Translator Name Role Phone Forrest Ayoub NP Primary Care Provider [phone] Encounter Details Date Type Department Care Team (Late Contact Info) Description 11/19/2022 Documentation Only [facility] [address] [place] [phone] Darrell Parekh PA Social History Tobacco Use [...] [facility] [address] [place] [address] Reynold Alberts MD [address] [place] [address] [place] [phone] documented as of this encounter Visit Diagnoses Not on filedocumented in this encounter Care Teams Freelance Translator Relationship Specialty Start Date End Date Forrest Ayoub NP [address] [place] [address] PCP - General Nurse Practitioner 11/27/19 documented as of this encounter
== END 2024-09-14 10:24 | disposition home or self-care (01) ==
LOC: HO.HMGCX 10:23
PROVIDERS: PCP Nurse Practitioner Family; Visit Provider Nurse Practitioner Family
DX: J06.9 Acute upper respiratory infection, unspecified (principal); R05.1 Acute cough
CPT/HCPCS: 36415; 71046; 99212

== ENCOUNTER 2024-09-14 12:20 | Outpatient (REF) | payer MEDICARE, SELFPAY | END 2024-09-14 12:21 | disposition home or self-care (01) | LOC: HO.LAB 12:20 | PROVIDERS: Visit Provider Nurse Practitioner Family | DX: Z13.89 Encounter for screening for other disorder (principal) | CPT/HCPCS: 36415 ==

== ENCOUNTER → 2024-09-14 12:23 | Outpatient (BNV) | payer MEDICARE, SELFPAY | PROVIDERS: PCP Nurse Practitioner Family; Visit Provider Radiology Diagnostic Radiology | DX: R91.8 Other nonspecific abnormal finding of lung field (principal) | CPT/HCPCS: 71046 ==

== ENCOUNTER 2024-10-10 08:24 | Outpatient (AMB) | payer MEDICARE, SELFPAY ==
--- NOTE | 2024-10-10 08:33 | MHC.PC.OV ---
Vital Signs 10/10/24 08:34 Height 5 ft 10 in Weight 202 lb BMI 29.0 BP 132/78 Blood Pressure Location Lt brachial Position Sitting Pulse 80 Pulse Source Pulse Oximeter Temp 98.3 F Temp Source Oral Pulse Oximetry (%) 94 Oxygen Delivery Method Room Air Intake Visit Reasons: walk in [facility] Porcelain Finish Sprayer Required: No Accompanied by: Spouse Allergies No Known Allergies Allergy (Verified 10/10/24 08:34) Medication List - Last Reconciled 10/10/24 by Forrest Ayobu FOOD SERVICE COORDINATOR- albuterol sulfate 90 mcg/actuation (ProAir HFA) 2 puffs inhalation Q6H PRN ascorbate calcium (vitamin C) 500 mg PO BID aspirin (Adult Aspirin Regimen) 81 mg PO DAILY carvedilol 3.125 mg PO BID cholecalciferol (vitamin D3) 50 mcg PO 2XW dextromethorphan-guaifenesin 5-100 mg/5 mL (Robitussin Cough-Chest Congestion DM) 10 mL PO Q4-8H PRN qxfowtyioxr-youjmfxts-qdvxcsqp 100-62.5-25 mcg (Trelegy Ellipta) 1 inh inhalation DAILY mycophenolate sodium 360 mg PO BID pantoprazole 40 mg PO DAILY sennosides (Senna Laxative) 8.6 mg PO BEDTIME PRN tacrolimus 5 mg PO DIRECTED Tobacco use date assessed: 10/10/24 Fall risk assessment: No Falls in past year Last assessed Fall Risk: 10/10/24 Dental Screening Dental Screen Date: 10/10/24 Did you have a dental visit in the last 12 months?: Yes Did you have a dental problem in the last 6 months where you did not have access to dental care?: No Was dental information given to patient?: Patient has dentist HPI walk in [facility] HPI Details Chief Complaint The patient presents for follow-up after being diagnosed with pneumonia. History of Present Illness The patient is a 73-year-old male presenting with a follow-up visit for pneumonia. He was diagnosed with pneumonia on September 14, with involvement of the right upper and lower lobes as confirmed by chest X-ray. He was treated with amoxicillin and doxycycline, which led to improvement, though he reports not feeling completely recovered. The patient has a significant history of Chronic Obstructive Pulmonary Disease (COPD) and experienced shortness of breath prior to the pneumonia diagnosis. He had been undergoing annual low-dose CT scans for lung cancer screening, which ceased after 15 years of smoking cessation. A repeat CT scan is planned to further evaluate his pneumonia status. Social History - Smoking: Ceased smoking 15 years ago Health Maintenance - Lung cancer screening: Previously conducted annual low-dose CT scans, ceased after 15 years of smoking cessation Review of Systems - Respiratory: Reports dyspnea, denies fever and chills, excessive cough Physical Exam General: Cooperative, healthy appearing, comfortable, no acute distress and well developed Orientation: Patient oriented x3 Limitations: No limitations Head: Normal to inspection Ears: Hearing grossly normal bilaterally Nose: Normal external nose present Face and sinus: Normal facial exam Eyes: Appearance normal, both eyes and all related structures Neck: Normal visual inspection and Yes full ROM Respiratory: Faint crackles at the right base, otherwise fairly clear throughout Cardiovascular: Regular rate and rhythm. Normal S1 and S2 GI: Normal to inspection. Soft to palpation and nontender Neuro: Patient oriented x3 Extremities: Normal to inspection Results - Imaging: Chest X-ray showed right upper and lower lobe pneumonia Plan The patient will undergo a repeat CT scan to assess the current status of pneumonia and ensure resolution of the infection. Trelegy will be initiated to manage COPD symptoms and reduce reliance on albuterol, which the patient uses sparingly. The patient is advised to rinse his mouth after using Trelegy to prevent oral side effects. Discussion Notes I discussed with the patient the need for a repeat CT scan to evaluate the pneumonia and ensure it has resolved. We also talked about starting Trelegy to help manage his COPD symptoms and reduce the need for albuterol. I emphasized the importance of rinsing his mouth after using Trelegy to prevent oral side effects. Patient Instructions - Undergo a repeat CT scan as scheduled. - Start using Trelegy as prescribed and rinse mouth after each use. - Monitor symptoms and use albuterol only as needed. -pft testing ordered [facility] Medical History Community acquired bacterial pneumonia Cough Acute respiratory disease COPD (chronic obstructive pulmonary disease) AV fistula ESRD (end stage renal disease) Personal history of immunosupression therapy DVT (deep venous thrombosis) Pulmonary embolism Elevated cholesterol Anemia Roberts esophagus GERD (gastroesophageal reflux disease) Chronic kidney disease Hydronephrosis LOVE (acute kidney injury) HTN (hypertension) Depression Surgical History Hx of foot surgery Hx of kidney transplant H/O right inguinal hernia repair Hx of endoscopy Hx of colonoscopy Social History Housing: House Are you a primary clinical care manager to a significant other at home: No Do you presently have visiting nurse or other home services: No Patient Tobacco Use Status: Former Tobacco user Tobacco use type: Cigarette Years Smoked: 45 e-Cigarette/Vaping Use: Never Used Second Hand Smoke Exposure: No service: No Current occupational status: employed Current occupation: [employer] / left hand dominant Current occupational exposures/hazards: Yes Cognitive needs: No Hearing needs: No Vision needs: No Questionnaire PHQ-9 Over the last 2 weeks, how often have you been bothered by any of the following problems? 1. Little interest or pleasure in doing things: several days 2. Feeling down, depressed, or hopeless: several days 3. Trouble falling or staying asleep, or sleeping too much: not at all 4. Feeling tired or having little energy: several days 5. Poor appetite or overeating: several days 6. Feeling bad about yourself - or that you are a failure or have let yourself or your family down: several days 7. Trouble concentrating on things, such as reading the newspaper or watching television: not at all 8. Moving or speaking so slowly that other people could have noticed. Or the opposite - being so fidgety or restless that you have been moving around a lot more than usual: not at all 9. Thoughts that you would be better off or of hurting yourself in some way: not at all Total score: 5 Depression Screening Interpretation: Negative Depression Screening Done: Yes 84458 - PHQ-9 Billing: Yes Source: Developed by Drs. Demarco Del Cid, Veronika Vanessa, Benjamín Valdez and colleagues, with an educational yrn from [employer]. Thrive Questionnaire Date Thrive assessed: 10/10/24 I am a: Patient What is your living situation today?: I have a steady place to live Within the past 12 months, did the food you bought not last and you didn't have the money to get more?: I choose not to answer this question Within the past 12 months, did you worry whether your food would run out before you got money to buy more?: I choose not to answer this question Do you have trouble paying for medicines?: No Do you have trouble getting transportation to medical appointments?: No Do you have trouble paying your heating and electricity bill?: No Do you have trouble taking care of your child, family member or friend?: No Do you have trouble with day-to-day activities such as bathing, preparing meals, shopping, managing finances, etc.?: No Are you currently unemployed and looking for a job?: I choose not to answer this question Are you interested in more education?: No Please select the resources that you would like help with: None Currently or been in a relationship where the following occur: I choose not to answer THRIVE Score: 0 AUDIT C Alcohol Use Questionnaire (AUDIT-C) 1. How often do you have a drink containing alcohol?: 2-4 times a month 2. How many drinks containing alcohol do you have on a typical day when you are drinking?: 1 or 2 3. How often do you have six or more drinks on one occasion?: Never Total Score: 2 Score Reviewed/Action Taken: Yes CYNDI-7 AMB Questionnaire CYNDI-7 Date CYNDI - 7 assessed: 10/10/24 Feeling nervous, anxious, or on edge: 0 = Not at all Not being able to stop or control worryin = Not at all Worrying too much about different things: 0 = Not at all Trouble relaxin = Not at all Being so restless that it is hard to sit still: 0 = Not at all Becoming easily annoyed or irritable: 0 = Not at all Feeling afraid as if something awful might happen: 0 = Not at all Total CYNDI-7 score (0-4 normal; 5-9 mild; 10-14 moderate; 15-21 severe): 0 Source: Developed by Drs. Demarco Del Cid, Veronika Vanessa, Benjamín Valdez and colleagues, with an educational yrn from [employer]. CYNDI-7 Assessment Billing CYNDI-7 Assessment Tool: CYNDI-7 Assessment 17930 Physical exam (Primary Care) Vital Signs: Last Vital Signs Temp 98.3 F 10/10/24 08:34 Pulse 80 10/10/24 08:34 BP 132/78 10/10/24 08:34 Pulse Ox 94 10/10/24 08:34 Oxygen Delivery Method Room Air 10/10/24 08:34 BMI result Body Mass Index 29.0 Tobacco/Smoking Status: Tobacco use Status Tobacco use date assessed 10/10/24 10/10/24 08:35 Patient Tobacco Use Status Former Tobacco user 10/10/24 08:33 Tobacco use type Cigarette 10/10/24 08:33 e-Cigarette/Vaping Use Never Used 10/10/24 08:33 PHQ-9: PHQ-9 Score PHQ-9: Total score 5 10/10/24 08:35 Depression Screening Interpretation: Negative Thrive Assessment: Date of Thrive Assessment Date Thrive assessed 10/10/24 10/10/24 08:35 Currently or been in a relationship where the following occur: I choose not to answer Coding Level of Care Code Est Pt Level 4 (43209) Diagnoses Community acquired bacterial pneumonia J15.9 Acute respiratory disease J06.9 COPD (chronic obstructive pulmonary disease) J44.9 Additional Codes CYNDI-7 Assessment Billing - CYNDI-7 Assessment Tool: CYNDI-7 Assessment 64011 ([id number]) PHQ-9 - 20021 - PHQ-9 Billing: Yes ([id number]) Assessment & Plan Assessment & Plan (1) Community acquired bacterial pneumonia: Code(s): J15.9 - Unspecified bacterial pneumonia Category: Medical (2) Acute respiratory disease: Code(s): J06.9 - Acute upper respiratory infection, unspecified Category: Medical (3) COPD (chronic obstructive pulmonary disease): Comment: prn albuterol inhaler only-rarely uses Code(s): J44.9 - Chronic obstructive pulmonary disease, unspecified Category: Medical Plan . Orders: Orders PFT pulmonary function test Today J06.9 - Acute upper respiratory infection, unspecified, J15.9 - Unspecified bacterial pneumonia, J44.9 - Chronic obstructive pulmonary disease, unspecified Complete Blood Count Auto Diff Today J06.9 - Acute upper respiratory infection, unspecified, J15.9 - Unspecified bacterial pneumonia, J44.9 - Chronic obstructive pulmonary disease, unspecified Comprehensive Met. Panel Today J06.9 - Acute upper respiratory infection, unspecified, J15.9 - Unspecified bacterial pneumonia, J44.9 - Chronic obstructive pulmonary disease, unspecified CT chest wo IV con Today J06.9 - Acute upper respiratory infection, unspecified, J15.9 - Unspecified bacterial pneumonia Medications: New rdomgtgzmka-bmvgcgfsp-zfxeoamr 100-62.5-25 mcg (Trelegy Ellipta) 1 inh inhalation DAILY 60 ea 0RF albuterol sulfate 90 mcg/actuation (Ventolin HFA) 1 puff inhalation QID PRN 8.5 grams 0RF shortness of breath or wheezing
[2024-10-10 08:34] VITALS: BP 132/78; PULSE 80; TEMP 36.8; O2SAT 94; BMI 29.0
--- OUTSIDE RECORDS SUMMARY | 2024-10-10 08:38 | XMS_ITS | Encounter Summary ---
Author Organization [facility], Address [address] [place] [address] Phone Care Team Providers Care Gang Leader Name Role Phone Jerardofrankie Forrest PAREDES Primary Care Provider [phone] Reason for Visit * Reason Comments Med Refill Encounter Details Date Type Department Care Team (Late Contact Info) Description 02/06/2021 Refill [facility] [address] [place] [phone] Rajiv Ghosh MD [address] [facility] [place] [address] Social History Tobacco Use Types [...] Department Care Team (Late Contact Info) Description 10/26/2024 2:45 PM EDT Clinical Support [facility] [place] [address] [place] [address] Nasrin Foley FNP-C [address] [address] documented as of this encounter Visit Diagnoses Not on filedocumented in this encounter Care Teams Gang Leader Relationship Specialty Start Date End Date Forrest Ayoub NP [facility] [place] [address] PCP - General Nurse Practitioner 11/27/19 documented as of this encounter
== END 2024-10-10 09:27 | disposition home or self-care (01) ==
LOC: HO.HMCC 08:24
PROVIDERS: PCP Nurse Practitioner Family; Visit Provider Nurse Practitioner Family
DX: J15.9 Unspecified bacterial pneumonia (principal); J06.9 Acute upper respiratory infection, unspecified; J44.9 Chronic obstructive pulmonary disease, unspecified

== ENCOUNTER → 2024-10-10 08:24 | Outpatient (BNVA) | payer MEDICARE, SELFPAY | PROVIDERS: PCP Nurse Practitioner Family; Visit Provider Nurse Practitioner Family | DX: K21.9 Gastro-esophageal reflux disease without esophagitis (principal); J44.9 Chronic obstructive pulmonary disease, unspecified; J15.9 Unspecified bacterial pneumonia; J06.9 Acute upper respiratory infection, unspecified; Z87.891 Personal history of nicotine dependence | CPT/HCPCS: 96127; 99212 ==

== ENCOUNTER 2024-10-14 09:18 | Outpatient (REF) | payer MEDICARE, SELFPAY ==
--- NOTE | ~2024-10-14 | CT_ITS ---
CLINICAL HISTORY: J15.9 - Unspecified bacterial pneumonia CT chest without contrast Comparison: None provided Findings: No cardiomegaly. Moderately severe atherosclerotic disease of the coronary arteries. No mediastinal adenopathy, pericardial effusion, or suspicious thyroid lesion. Lungs exhibit regions of fibrosis, emphysema, and subpleural reticulation. Mild bronchiectasis. No pneumothorax or effusion. Faint ground-glass density at the subpleural lung bases. The visualized upper abdomen demonstrates renal atrophy. Significant fecal retention throughout the colon. Impression: Chronic interstitial changes with fibrosis emphysema and mild bronchiectasis. Faint subpleural ground-glass density at the right lung bases nonspecific. A small focus of infection is possible however favor this to reflect chronic change. No comparison CT is provided. This document has been electronically signed by: Meño Stevens MD on 10/14/2024 10:18:29
== END 2024-10-14 09:19 | disposition home or self-care (01) ==
LOC: HO.CT 09:18
PROVIDERS: PCP Nurse Practitioner Family; Visit Provider Nurse Practitioner Family
DX: J15.9 Unspecified bacterial pneumonia (principal); J06.9 Acute upper respiratory infection, unspecified
CPT/HCPCS: 71250

== ENCOUNTER → 2024-10-14 09:19 | Outpatient (BNV) | payer MEDICARE, SELFPAY | PROVIDERS: PCP Nurse Practitioner Family; Visit Provider Radiology Vascular & Interventional Radiology | DX: J84.10 Pulmonary fibrosis, unspecified (principal) | CPT/HCPCS: 71250 ==

== ENCOUNTER 2025-01-12 09:55 | Outpatient (REF) | payer MEDICARE, SELFPAY ==
--- NOTE | 2025-01-12 09:58 | PFT_ITS ---
Flows: FEV1: 80 % of predicted at 2.48 L FVC: 93 % of predicted at 3.82 L FEV1/FVC: 65 % Bronchodilator response: Absent Volumes: Total lung capacity: 84 % of predicted at 5.99 L Residual volume: 83 % of predicted at 2.17 L Slow vital capacity: 87 % of predicted at 3.82 L Expiratory reserve volume: 66 % of predicted at 0.81 L Diffusion capacity: Moderately decreased, adjusts to being mildly decreased after correction for alveolar ventilation. Impression: Mild obstructive ventilatory defect with no bronchodilator response. Decreased diffusion capacity suggests emphysema. MTDD
--- OUTSIDE RECORDS SUMMARY | 2025-01-12 10:26 | XMS_ITS | Encounter Summary ---
Author Organization [facility], Address [address] [place] [address] Phone Care Team Providers Care Materials And Corrosion Engineer Name Role Phone Gordonmane Forrest PAREDES Primary Care Provider [phone] Reason for Visit * Reason Comments Med Refill Encounter Details Date Type Department Care Team (Late Contact Info) Description 10/17/2020 Refill [facility] [address] [place] [address] Rajiv Ghosh MD [address] [place] [address] [place] [phone] Social History Tobacco Use Types Packs/Day Years [...] Department Care Team (Late Contact Info) Description 01/19/2025 10:00 AM EDT Office Visit [facility] [address] [place] [phone] Reynold Alberts MD [address] [place] [phone] documented as of this encounter Visit Diagnoses Not on filedocumented in this encounter Care Teams Materials And Corrosion Engineer Relationship Specialty Start Date End Date Forrest Ayoub NP [address] [place] [address] PCP - General Nurse Practitioner 11/27/19 documented as of this encounter
--- OUTSIDE RECORDS SUMMARY | 2025-01-12 10:26 | XMS_ITS | Encounter Summary ---
Author Organization [facility], [place] [place] [address] Phone Care Team Providers Care Material Handler 2Nd Shift Name Role Phone GordonForrest gilliam LENA Primary Care Provider [phone] Reason for Visit * Reason Comments Med Refill Encounter Details Date Type Department Care Team (Late Contact Info) Description 12/17/2020 Refill [facility] [address] [place] [phone] Rajiv Ghosh MD [address] [facility] [place] [address] Social History Tobacco Use Types [...] Visit [facility] [place] [address] [place] [address] Reynold Alberts MD [address] [facility] [place] [address] documented as of this encounter Visit Diagnoses Not on filedocumented in this encounter Care Teams Material Handler 2Nd Shift Relationship Specialty Start Date End Date Forrest Ayoub NP [address] [place] [address] PCP - General Nurse Practitioner 11/27/19 documented as of this encounter
--- OUTSIDE RECORDS SUMMARY | 2025-01-12 10:26 | XMS_ITS | Encounter Summary ---
Author Organization [facility] Address [address] [place] [address] Phone Care Team Providers Care Missile Technician Name Role Phone GordonForrest gilliam LENA Primary Care Provider [phone] Encounter Details Date Type Department Care Team (Late st Contact Info) Description 05/14/2022 Documentation Only [facility] [address] [place] [phone] Darrell Parekh PA [address] [place] [address] [place] [address] Social History Tobacco Use Types Packs/Day Years [...] Visit [facility] [place] [address] [place] [phone] Reynold Alberts MD [address] [facility] [place] [address] documented as of this encounter Visit Diagnoses Not on filedocumented in this encounter Care Teams Missile Technician Relationship Specialty Start Date End Date Forrest Ayoub NP [facility] [place] [address] PCP - General Nurse Practitioner 11/27/19 documented as of this encounter
--- OUTSIDE RECORDS SUMMARY | 2025-01-12 10:26 | XMS_ITS | Encounter Summary ---
Author Organization [facility] Address [address] [place] [address] Phone Care Team Providers Care Patternmaker Metal Bench Name Role Phone GordonForrest gilliam LENA Primary Care Provider [phone] Encounter Details Date Type Department Care Team (Late st Contact Info) Description 07/07/2022 Documentation Only [facility] [address] [place] [address] Darrell Parekh PA [address] [place] [address] [place] [address] Social History Tobacco Use Types [...] Care Team (Late st Contact Info) Description 01/19/2025 10:00 AM EDT Office Visit [facility] [place] [address] [place] [address] Reynold Alberts MD [address] [facility] [place] [address] documented as of this encounter Visit Diagnoses Not on filedocumented in this encounter Care Teams Patternmaker Metal Bench Relationship Specialty Start Date End Date Forrets Ayoub NP [facility] [place] [address] PCP - General Nurse Practitioner 11/27/19 documented as of this encounter
--- OUTSIDE RECORDS SUMMARY | 2025-01-12 10:26 | XMS_ITS | Encounter Summary ---
Author Organization [facility] Address [address] [place] [address] Phone Care Team Providers Care Senior Application Security Consultant Name Role Phone GordonForrest gilliam LENA Primary Care Provider [phone] Encounter Details Date Type Department Care Team (Late st Contact Info) Description 07/07/2022 Documentation Only [facility] [address] [place] [address] Darrell Parekh PA [address] [place] [address] [place] [address] Social History Tobacco Use Types [...] Visit [facility] [place] [address] [place] [address] Reynold Alberts MD [address] [facility] [place] [address] documented as of this encounter Visit Diagnoses Not on filedocumented in this encounter Care Teams Senior Application Security Consultant Relationship Specialty Start Date End Date Forrest Ayoub NP [facility] [address] PCP - General Nurse Practitioner 11/27/19 documented as of this encounter
--- OUTSIDE RECORDS SUMMARY | 2025-01-12 10:26 | XMS_ITS ---
[facility] Unknown Problems Problem Status Onset Date Problem Type Date of Resoluti on Source Complication of transplanted kidney, unspecified complication active [facility] Encounter Type Encounter Reason Primary Diagnosis Location Date Ambulatory Unspecified complication of kidney transplant Unspecified complication of kidney transplant [facility] 12/04/2022 Ambulatory Unspecified complication of kidney transplant [facility] 08/05/2022 Ambulatory Unspecified complication of kidney transplant [facility] 07/15/2022 Ambulatory Kidney transplan t status [facility] 02/25/2022 Ambulatory Unspecified complication of kidney transplant [facility] 09/03/2021 Care Team Organization Name Specialty Phone Email Start Date End Da te [facility] PCP,No Primary Care 02/25/2022 [facility] NO PCP Primary Care 08/20/2021 02/17/2022
--- OUTSIDE RECORDS SUMMARY | 2025-01-12 10:26 | XMS_ITS | Encounter Summary ---
Author Organization [facility], Address [address] [place] [address] Phone Care Team Providers Care Fur Repairer Name Role Phone Gordonmane Forrest [place] Primary Care Provider [phone] Reason for Visit * Reason Comments Med Refill Encounter Details Date Type Department Care Team (Late Contact Info) Description 05/02/2020 Refill [facility] [address] [place] [address] Rajiv Ghosh MD [address] [place] [address] [place] [address] Social History Tobacco Use Types Packs/Day Years [...] Visit [facility] [address] [place] [address] Reynold Alberts MD [address] [place] [address] documented as of this encounter Visit Diagnoses Not on filedocumented in this encounter Care Teams Fur Repairer Relationship Specialty Start Date End Date Forrest Ayoub NP [address] [place] [address] PCP - General Nurse Practitioner 11/27/19 documented as of this encounter
--- OUTSIDE RECORDS SUMMARY | 2025-01-12 10:26 | XMS_ITS | Encounter Summary ---
Author Organization [facility], [place] [place] [address] Phone Care Team Providers Care Metal Mine Inspector Name Role Phone GordonForrest gilliam LENA Primary Care Provider [phone] Reason for Visit * Reason Comments Med Refill Encounter Details Date Type Department Care Team (Late Contact Info) Description 02/06/2021 Refill [facility] [address] [place] [address] Rajiv Ghosh MD [address] [place] [address] Social History Tobacco Use Types [...] Visit [facility] [place] [address] [place] [address] Reynold Alberts MD [address] [place] [address] documented as of this encounter Visit Diagnoses Not on filedocumented in this encounter Care Teams Metal Mine Inspector Relationship Specialty Start Date End Date Forrest Ayoub NP [address] [place] [address] PCP - General Nurse Practitioner 11/27/19 documented as of this encounter
--- OUTSIDE RECORDS SUMMARY | 2025-01-12 10:26 | XMS_ITS | Encounter Summary ---
Author Organization [facility] [place] [address] Phone Care Team Providers Care Percussion Instrument Tuner Name Role Phone JaidaildaForrest gilliam LENA Primary Care Provider [phone] Encounter Details Date Type Department Care Team (Late st Contact Info) Description 06/23/2022 Documentation Only [facility] [address] [place] [address] [place], [place] [address] [place] [address] Social History Tobacco Use Types [...] Visit [facility] [place] [address] [place] [address] Reynold Alberts MD [address] [facility] [place] [address] documented as of this encounter Visit Diagnoses Not on filedocumented in this encounter Care Teams Percussion Instrument Tuner Relationship Specialty Start Date End Date Forrest Ayoub [place] [facility] [place] [address] PCP - General Nurse Practitioner 11/27/19 documented as of this encounter
--- OUTSIDE RECORDS SUMMARY | 2025-01-12 10:26 | XMS_ITS | Encounter Summary ---
Author Organization [facility], [place] [address] [place] [address] Phone Care Team Providers Care Cardiac Technologist Name Role Phone GordonForrest gilliam LENA Primary Care Provider [phone] Reason for Visit * Reason Comments Med Refill Encounter Details Date Type Department Care Team (Late Contact Info) Description 10/12/2022 Refill [facility] [address] [place] [address] Reynold Alberts MD [address] [place] [address] [place] [address] Social History Tobacco Use Types [...] Visit [facility] [address] [place] [address] Reynold Alberts MD [address] [place] [address] [place] [address] documented as of this encounter Visit Diagnoses Not on filedocumented in this encounter Care Teams Cardiac Technologist Relationship Specialty Start Date End Date Forrest Ayoub NP [facility] [place] [address] PCP - General Nurse Practitioner 11/27/19 documented as of this encounter
--- OUTSIDE RECORDS SUMMARY | 2025-01-12 10:26 | XMS_ITS | Encounter Summary ---
Author Organization [facility] [place] [address] Phone Care Team Providers Care Engineering Manager Name Role Phone JaidaildaForrest gilliam LENA Primary Care Provider [phone] Encounter Details Date Type Department Care Team (Late Contact Info) Description 04/21/2022 Documentation Only [facility] [address] [place] [address] [place], [place] [address] [place] [address] Social History Tobacco Use Types [...] Visit [facility] [place] [address] [place] [address] Reynold Alberts MD [address] [facility] [place] [address] documented as of this encounter Visit Diagnoses Not on filedocumented in this encounter Care Teams Engineering Manager Relationship Specialty Start Date End Date Forrest Ayoub [place] [facility] [address] PCP - General Nurse Practitioner 11/27/19 documented as of this encounter
--- OUTSIDE RECORDS SUMMARY | 2025-01-12 10:26 | XMS_ITS | Encounter Summary ---
Author Organization [facility] [place] [address] [address] Phone Care Team Providers Care Inspector And Hand Packager Name Role Phone JaidaildaForrest gilliam LENA Primary Care Provider [phone] Encounter Details Date Type Department Care Team (Late st Contact Info) Description 06/23/2022 Documentation Only [facility] [address] [facility] [place] [address] [place], [place] [address] [place] [address] Social History Tobacco Use Types [...] Visit [facility] [place] [address] [place] [place] [address] Reynold Alberts MD [address] [facility] [place] [address] documented as of this encounter Visit Diagnoses Not on filedocumented in this encounter Care Teams Inspector And Hand Packager Relationship Specialty Start Date End Date Forrest Ayoub NP [facility] [place] [address] PCP - General Nurse Practitioner 11/27/19 documented as of this encounter
--- OUTSIDE RECORDS SUMMARY | 2025-01-12 10:26 | XMS_ITS | Encounter Summary ---
Author Organization [facility] [place] [address] Phone Care Team Providers Care Genetics Nurse Name Role Phone JaidaildaForrest gilliam LENA Primary Care Provider [phone] Encounter Details Date Type Department Care Team (Late st Contact Info) Description 07/07/2022 Documentation Only [facility] [address] [place] [address] [place], [place] [address] [place] [address] Social History Tobacco Use Types [...] Visit [facility] [place] [address] [place] [address] Reynold Alberts MD [address] [facility] [place] [address] documented as of this encounter Visit Diagnoses Not on filedocumented in this encounter Care Teams Genetics Nurse Relationship Specialty Start Date End Date Forrest Ayoub NP [facility] [place] [address] PCP - General Nurse Practitioner 11/27/19 documented as of this encounter
--- OUTSIDE RECORDS SUMMARY | 2025-01-12 10:26 | XMS_ITS | Encounter Summary ---
Author Organization [facility] Address [address] [place] [address] Phone Care Team Providers Care Chief Contract Officer Name Role Phone GordonForrest gilliam LENA Primary Care Provider [phone] Encounter Details Date Type Department Care Team (Late st Contact Info) Description 07/21/2022 Documentation Only [facility] [address] [place] [address] Darrell Parekh PA [address] [place] [address] [place] [address] Social History Tobacco Use Types [...] Visit [facility] [place] [address] [place] [address] Reynold Alberts MD [address] [facility] [place] [address] documented as of this encounter Visit Diagnoses Not on filedocumented in this encounter Care Teams Chief Contract Officer Relationship Specialty Start Date End Date Forrest Ayoub NP [facility] [place] [address] PCP - General Nurse Practitioner 11/27/19 documented as of this encounter
--- OUTSIDE RECORDS SUMMARY | 2025-01-12 10:26 | XMS_ITS | Encounter Summary ---
Author Organization [facility], [place] [place] [address] Phone Care Team Providers Care Rubble Placer Name Role Phone Gordonmane Forrest PAREDES Primary Care Provider [phone] Reason for Visit * Reason Comments Med Refill Encounter Details Date Type Department Care Team (Late Contact Info) Description 06/12/2022 Refill [facility] [address] [place] [address] Darrell Parekh PA [address] [place] [address] [place] [address] Social History Tobacco Use Types [...] Visit [facility] [place] [address] [address] [place] [address] Reynold Alberts MD [address] [place] [address] [place] [address] documented as of this encounter Visit Diagnoses Not on filedocumented in this encounter Care Teams Rubble Placer Relationship Specialty Start Date End Date Forrest Ayoub NP [facility] [place] [address] PCP - General Nurse Practitioner 11/27/19 documented as of this encounter
--- OUTSIDE RECORDS SUMMARY | 2025-01-12 10:27 | XMS_ITS | Encounter Summary ---
Author Organization [facility] Address [address] [place] [address] Phone Care Team Providers Care Watch Dial Maker Name Role Phone Forrest Ayoub NP Primary Care Provider [phone] Encounter Details Date Type Department Care Team (Latest Contact Info) Description 01/10/2025 Orders Only [facility] [address] [place] [address] [place], [place] [address] [place] [address] Personal history of immunosuppression therapy (Primary Dx); Kidney replaced by transplant; Stage 3b chronic kidney disease (HCC); Hypertension; Hyperkalemia; Anemia in chronic kidney disease; Hyperlipidemia, not otherwise specified; Vitamin D deficiency, not otherwise specified; Idiopathic gout, not otherwise specified; Other hyperlipidemia; Hypomagnesemia; Other iron deficiency anemia; Other specified hypoparathyroidism (HCC); Albuminuria, not otherwise specified; Poor glycemic control Social History Tobacco Use Types Packs/Day Years [...] [facility] [address] [place] [place] [address] Reynold Alberts MD [address] [place] [address] [place] [id number] Scheduled Orders Name Type Priority Associated Diagnoses Orde r Schedule Tacrolimus, Highly Sensitive, LC/MS/MS Lab Routine Personal history of immunosuppression therapy Kidney replaced by transplant Stage 3b chronic kidney disease (HCC) Hypertension Hyperkalemia Anemia in chronic kidney disease Hyperlipidemia, not otherwise specified Vitamin D deficiency, not otherwise specified Idiopathic gout, not otherwise specified Other hyperlipidemia Hypomagnesemia Other iron deficiency anemia Other specified hypoparathyroidism (HCC) Albuminuria, not otherwise specified Poor glycemic control Expected: 01/10/2025, Expires: 02/09/2026 Mycophenolic Acid and Metabo. Lab Routine Personal history of immunosuppression therapy Kidney replaced by transplant Stage 3b chronic kidney disease (HCC) Hypertension Hyperkalemia Anemia in chronic kidney disease Hyperlipidemia, not otherwise specified Vitamin D deficiency, not otherwise specified Idiopathic gout, not otherwise specified Other hyperlipidemia Hypomagnesemia Other iron deficiency anemia Other specified hypoparathyroidism (HCC) Albuminuria, not otherwise specified Poor glycemic control Expected: 01/10/2025, Expires: 02/09/2026 Renal Function Panel Lab Routine Personal history of immunosuppression therapy Kidney replaced by transplant Stage 3b chronic kidney disease (HCC) Hypertension Hyperkalemia Anemia in chronic kidney disease Hyperlipidemia, not otherwise specified Vitamin D deficiency, not otherwise specified Idiopathic gout, not otherwise specified Other hyperlipidemia Hypomagnesemia Other iron deficiency anemia Other specified hypoparathyroidism (HCC) Albuminuria, not otherwise specified Poor glycemic control Expected: 01/10/2025, Expires: 02/09/2026 CBC and Differential Lab Routine Personal history of immunosuppression therapy Kidney replaced by transplant Stage 3b chronic kidney disease (HCC) Hypertension Hyperkalemia Anemia in chronic kidney disease Hyperlipidemia, not otherwise specified Vitamin D deficiency, not otherwise specified Idiopathic gout, not otherwise specified Other hyperlipidemia Hypomagnesemia Other iron deficiency anemia Other specified hypoparathyroidism (HCC) Albuminuria, not otherwise specified Poor glycemic control Expected: 01/10/2025, Expires: 02/09/2026 Vitamin D 25 Hydroxy Lab Routine Personal history of immunosuppression therapy Kidney replaced by transplant Stage 3b chronic kidney disease (HCC) Hypertension Hyperkalemia Anemia in chronic kidney disease Hyperlipidemia, not otherwise specified Vitamin D deficiency, not otherwise specified Idiopathic gout, not otherwise specified Other hyperlipidemia Hypomagnesemia Other iron deficiency anemia Other specified hypoparathyroidism (HCC) Albuminuria, not otherwise specified Poor glycemic control Expected: 01/10/2025, Expires: 02/09/2026 Uric Acid Lab Routine Personal history of immunosuppression therapy Kidney replaced by transplant Stage 3b chronic kidney disease (HCC) Hypertension Hyperkalemia Anemia in chronic kidney disease Hyperlipidemia, not otherwise specified Vitamin D deficiency, not otherwise specified Idiopathic gout, not otherwise specified Other hyperlipidemia Hypomagnesemia Other iron deficiency anemia Other specified hypoparathyroidism (HCC) Albuminuria, not otherwise specified Poor glycemic control Expected: 01/10/2025, Expires: 02/09/2026 Lipid panel Lab Routine Personal history of immunosuppression therapy Kidney replaced by transplant Stage 3b chronic kidney disease (HCC) Hypertension Hyperkalemia Anemia in chronic kidney disease Hyperlipidemia, not otherwise specified Vitamin D deficiency, not otherwise specified Idiopathic gout, not otherwise specified Other hyperlipidemia Hypomagnesemia Other iron deficiency anemia Other specified hypoparathyroidism (HCC) Albuminuria, not otherwise specified Poor glycemic control Expected: 01/10/2025, Expires: 02/09/2026 Magnesium Lab Routine Personal history of immunosuppression therapy Kidney replaced by transplant Stage 3b chronic kidney disease (HCC) Hypertension Hyperkalemia Anemia in chronic kidney disease Hyperlipidemia, not otherwise specified Vitamin D deficiency, not otherwise specified Idiopathic gout, not otherwise specified Other hyperlipidemia Hypomagnesemia Other iron deficiency anemia Other specified hypoparathyroidism (HCC) Albuminuria, not otherwise specified Poor glycemic control Expected: 01/10/2025, Expires: 02/09/2026 Ferritin Lab Routine Personal history of immunosuppression therapy Kidney replaced by transplant Stage 3b chronic kidney disease (HCC) Hypertension Hyperkalemia Anemia in chronic kidney disease Hyperlipidemia, not otherwise specified Vitamin D deficiency, not otherwise specified Idiopathic gout, not otherwise specified Other hyperlipidemia Hypomagnesemia Other iron deficiency anemia Other specified hypoparathyroidism (HCC) Albuminuria, not otherwise specified Poor glycemic control Expected: 01/10/2025, Expires: 02/09/2026 Iron Panel (Fe, TIBC, TSAT) Lab Routine Personal history of immunosuppression therapy Kidney replaced by transplant Stage 3b chronic kidney disease (HCC) Hypertension Hyperkalemia Anemia in chronic kidney disease Hyperlipidemia, not otherwise specified Vitamin D deficiency, not otherwise specified Idiopathic gout, not otherwise specified Other hyperlipidemia Hypomagnesemia Other iron deficiency anemia Other specified hypoparathyroidism (HCC) Albuminuria, not otherwise specified Poor glycemic control Expected: 01/10/2025, Expires: 02/09/2026 PTH, Intact Lab Routine Personal history of immunosuppression therapy Kidney replaced by transplant Stage 3b chronic kidney disease (HCC) Hypertension Hyperkalemia Anemia in chronic kidney disease Hyperlipidemia, not otherwise specified Vitamin D deficiency, not otherwise specified Idiopathic gout, not otherwise specified Other hyperlipidemia Hypomagnesemia Other iron deficiency anemia Other specified hypoparathyroidism (HCC) Albuminuria, not otherwise specified Poor glycemic control Expected: 01/10/2025, Expires: 02/09/2026 ALT Lab Routine Personal history of immunosuppression therapy Kidney replaced by transplant Stage 3b chronic kidney disease (HCC) Hypertension Hyperkalemia Anemia in chronic kidney disease Hyperlipidemia, not otherwise specified Vitamin D deficiency, not otherwise specified Idiopathic gout, not otherwise specified Other hyperlipidemia Hypomagnesemia Other iron deficiency anemia Other specified hypoparathyroidism (HCC) Albuminuria, not otherwise specified Poor glycemic control Expected: 01/10/2025, Expires: 02/09/2026 AST Lab Routine Personal history of immunosuppression therapy Kidney replaced by transplant Stage 3b chronic kidney disease (HCC) Hypertension Hyperkalemia Anemia in chronic kidney disease Hyperlipidemia, not otherwise specified Vitamin D deficiency, not otherwise specified Idiopathic gout, not otherwise specified Other hyperlipidemia Hypomagnesemia Other iron deficiency anemia Other specified hypoparathyroidism (HCC) Albuminuria, not otherwise specified Poor glycemic control Expected: 01/10/2025, Expires: 02/09/2026 CK Lab Routine Personal history of immunosuppression therapy Kidney replaced by transplant Stage 3b chronic kidney disease (HCC) Hypertension Hyperkalemia Anemia in chronic kidney disease Hyperlipidemia, not otherwise specified Vitamin D deficiency, not otherwise specified Idiopathic gout, not otherwise specified Other hyperlipidemia Hypomagnesemia Other iron deficiency anemia Other specified hypoparathyroidism (HCC) Albuminuria, not otherwise specified Poor glycemic control Expected: 01/10/2025, Expires: 02/09/2026 Urine Albumin / Creatinine Ratio Lab Routine Personal history of immunosuppression therapy Kidney replaced by transplant Stage 3b chronic kidney disease (HCC) Hypertension Hyperkalemia Anemia in chronic kidney disease Hyperlipidemia, not otherwise specified Vitamin D deficiency, not otherwise specified Idiopathic gout, not otherwise specified Other hyperlipidemia Hypomagnesemia Other iron deficiency anemia Other specified hypoparathyroidism (HCC) Albuminuria, not otherwise specified Poor glycemic control Expected: 01/10/2025, Expires: 02/09/2026 Urinalysis, Complete w/reflex to Culture Lab Routine Personal history of immunosuppression therapy Kidney replaced by transplant Stage 3b chronic kidney disease (HCC) Hypertension Hyperkalemia Anemia in chronic kidney disease Hyperlipidemia, not otherwise specified Vitamin D deficiency, not otherwise specified Idiopathic gout, not otherwise specified Other hyperlipidemia Hypomagnesemia Other iron deficiency anemia Other specified hypoparathyroidism (HCC) Albuminuria, not otherwise specified Poor glycemic control Expected: 01/10/2025, Expires: 02/09/2026 Hemoglobin A1c Lab Routine Personal history of immunosuppression therapy Kidney replaced by transplant Stage 3b chronic kidney disease (HCC) Hypertension Hyperkalemia Anemia in chronic kidney disease Hyperlipidemia, not otherwise specified Vitamin D deficiency, not otherwise specified Idiopathic gout, not otherwise specified Other hyperlipidemia Hypomagnesemia Other iron deficiency anemia Other specified hypoparathyroidism (HCC) Albuminuria, not otherwise specified Poor glycemic control Expected: 01/10/2025, Expires: 02/09/2026 documented as of this encounter Visit Diagnoses Diagnosis Personal history of immunosuppression therapy- Primary Kidney replaced by transplant Stage 3b chronic kidney disease (HCC) Hypertension Hyperkalemia Anemia in chronic kidney disease Hyperlipidemia, not otherwise specified Vitamin D deficiency, not otherwise specified Idiopathic gout, not otherwise specified Other hyperlipidemia Hypomagnesemia Other iron deficiency anemia Other specified hypoparathyroidism (HCC) Albuminuria, not otherwise specified Poor glycemic control documented in this encounter Care Teams Watch Dial Maker Relationship Specialty Start Date End Date Forrest Ayoub NP [facility] [place] [address] PCP - General Nurse Practitioner 11/27/19 documented as of this encounter
--- OUTSIDE RECORDS SUMMARY | 2025-01-12 10:27 | XMS_ITS | Encounter Summary ---
Author Organization [facility], Address [address] [place] [address] Phone Care Team Providers Care Support Associate Name Role Phone GordonForrest gilliam LENA Primary Care Provider [phone] Encounter Details Date Type Department Care Team (Late st Contact Info) Description 10/20/2021 Documentation Only [facility] [address] [phone] Darrell Parekh PA [address] [place] [address] [place] [address] Social History Tobacco Use Types [...] Visit [facility] [place] [address] [place] [phone] Reynold Alberts MD [address] [facility] [place] [address] documented as of this encounter Visit Diagnoses Not on filedocumented in this encounter Care Teams Support Associate Relationship Specialty Start Date End Date Forrest Ayoub [place] [address] PCP - General Nurse Practitioner 11/27/19 documented as of this encounter
--- OUTSIDE RECORDS SUMMARY | 2025-01-12 10:27 | XMS_ITS | Encounter Summary ---
Author Organization [facility] Address [address] [place] [address] Phone Care Team Providers Care Cash Register Repairer Name Role Phone GordonForrest gilliam LENA Primary Care Provider [phone] Encounter Details Date Type Department Care Team (Late st Contact Info) Description 11/19/2022 Documentation Only [facility] [address] [place] [phone] Darrell Parekh PA [address] [place] [address] [place] [address] Social History Tobacco Use Types [...] Visit [facility] [place] [address] [place] [phone] Reynold Alberts MD [address] [facility] [address] [place] [address] documented as of this encounter Visit Diagnoses Not on filedocumented in this encounter Care Teams Cash Register Repairer Relationship Specialty Start Date End Date Forrest Ayoub NP [facility] [place] [address] PCP - General Nurse Practitioner 11/27/19 documented as of this encounter
--- OUTSIDE RECORDS SUMMARY | 2025-01-12 10:27 | XMS_ITS | Encounter Summary ---
Author Organization [facility] [place] [address] Phone Care Team Providers Care Information Technology Consultant Name Role Phone JaidaildaForrest gilliam LENA Primary Care Provider [phone] Encounter Details Date Type Department Care Team (Late st Contact Info) Description 09/28/2023 Documentation Only [facility] [address] [place] [address] [place], [place] [address] [place] [address] Social History Tobacco Use Types [...] Visit [facility] [place] [address] [place] [address] Reynold Alberts MD [address] [facility] [place] [address] documented as of this encounter Visit Diagnoses Not on filedocumented in this encounter Care Teams Information Technology Consultant Relationship Specialty Start Date End Date Forrest Ayoub NP [facility] [place] [address] PCP - General Nurse Practitioner 11/27/19 documented as of this encounter
--- OUTSIDE RECORDS SUMMARY | 2025-01-12 10:27 | XMS_ITS | Encounter Summary ---
Author Organization [facility] Address [address] [place] [address] Phone Care Team Providers Care Switchboard Receptionist Name Role Phone Gordonmane Forrest PAREDES Primary Care Provider [phone] Encounter Details Date Type Department Care Team (Late Contact Info) Description 08/26/2021 Documentation Only [facility] [address] [place] [phone] Darrell Parekh PA [address] [place] [address] Social History Tobacco Use [...] Visit [facility] [place] [address] [place] [place] [phone] Reynold Alberts MD [address] [place] [address] documented as of this encounter Visit Diagnoses Not on filedocumented in this encounter Care Teams Switchboard Receptionist Relationship Specialty Start Date End Date Forrest Ayoub NP [address] [place] [address] PCP - General Nurse Practitioner 11/27/19 documented as of this encounter
--- OUTSIDE RECORDS SUMMARY | 2025-01-12 10:27 | XMS_ITS | Clinical Summary ---
Author Organization [facility] Address [address] [place] [address] Care Team Providers Care Supervisor Multifocal Lens Name Role Phone Pcp, No Primary Care [...] Health Maintenance Due Date Last Done Comments Advance Care Planning 1950 Hepatitis C Virus Screening 1950 DTaP/Tdap/Td Vaccines (1 - Tdap) 10/28/1970 Colonoscopy 10/28/1996 Pneumococcal Vaccines 50+ (1 of 1 - PCV) 10/28/2001 Zoster (Shingles) Vaccine (1 of 2) 10/28/2001 Influenza Vaccine 11/24/2024 02/06/2021, , 02/27/2020, Additional history exists COVID-19 Vaccine ( season) 2024 06/27/2020, 05/30/2020 RSV Vaccine 60 years and older and Patients (1 - 1-dose 75+ series) 10/28/2026 Hepatitis B Vaccines Aged Out No long er eligible based on patient's age to complete this topic Insurance BLUE CROSS [employer] MEDICARE OUT OF NETWORK Care Teams Supervisor Multifocal Lens Relationship Specialty Start Date End Date Pcp, No [address] [place] [address] PCP - General 08/20/21
--- OUTSIDE RECORDS SUMMARY | 2025-01-12 10:27 | XMS_ITS | Encounter Summary ---
Author Organization [facility] [place], Address [address] [place] [address] Phone Care Team Providers Care Psychometrician Name Role Phone Gordonmane Forrest PAREDES Primary Care Provider [phone] Reason for Visit * Reason Comments Med Refill Encounter Details Date Type Department Care Team (Late Contact Info) Description 04/13/2020 Refill [facility] [address] [place] [address] Rajiv Ghosh MD [address] [facility] [place] [address] Social History Tobacco Use Types [...] Office Visit [facility] [address] [address] [facility] [place] [address] Reynold Alberts MD [address] [place] [address] documented as of this encounter Visit Diagnoses Not on filedocumented in this encounter Care Teams Psychometrician Relationship Specialty Start Date End Date Forrest Ayoub NP [address] [place] [address] PCP - General Nurse Practitioner 11/27/19 documented as of this encounter
--- OUTSIDE RECORDS SUMMARY | 2025-01-12 10:27 | XMS_ITS | Encounter Summary ---
Author Organization [facility] [place] [address] Phone Care Team Providers Care Video Software Engineer Name Role Phone JaidaildaForrest gilliam LENA Primary Care Provider [phone] Encounter Details Date Type Department Care Team (Late Contact Info) Description 11/11/2022 Documentation Only [facility] [address] [place] [address] [place], [place] [address] [place] [address] Social History Tobacco Use Types [...] Visit [facility] [place] [address] [place] [address] Reynold Alberts MD [address] [facility] [place] [address] documented as of this encounter Visit Diagnoses Not on filedocumented in this encounter Care Teams Video Software Engineer Relationship Specialty Start Date End Date Forrest Ayoub NP [facility] [place] [address] PCP - General Nurse Practitioner 11/27/19 documented as of this encounter
--- OUTSIDE RECORDS SUMMARY | 2025-01-12 10:27 | XMS_ITS | Clinical Summary ---
Author Organization [facility], Address [address] [place] [address] [place] [address] Phone Care Team Providers Care Center Hole Reamer Name Role Phone Forrest Ayoub NP Primary Care Provider [phone] Allergies Active Allergy Reactions Criticality Noted Date [...] EC tablet Take 1 tablet by mouth 1 Active Sennosides 8.6 MG capsule Take 1 capsule by mouth daily 1 Active amoxicillin (AMOXIL) 500 MG capsule Take 4 capsules (2,000 mg total) by mouth 1 (one) time if needed (prior to dental work) for up to 1 dose Take 4 caps 1 hour prior to dental procedure 12 capsule 1 2 Active sodium polystyrene sulfonate (KAYEXALATE) powder TAKE 30 GM BY MOUTH MIXED INTO WATER 2 (TWO) TIMES A WEEK 454 g 11 4 Active mycophenolate (MYFORTIC) 360 MG EC tablet TAKE 1 TABLET BY MOUTH IN THE MORNING AND 1 TABLET IN THE EVENING. 180 tablet 3 4 Active carvedilol (COREG) 3.125 MG tablet Take 1 tablet (3.125 mg total) by mouth in the morning and 1 tablet (3.125 mg total) in the evening. Take with meals. 180 tablet 3 4 02/11/20 25 Active aspirin 81 MG chewable tablet Chew 81 mg 1 (one) time each day Active tacrolimus (PROGRAF) 1 MG capsule TAKE 3 CAPSULES BY MOUTH IN THE MORNING AND 2 CAPSULES IN THE EVENING 150 capsule 10 5 Active Active Problems Problem Noted Date Diagnosed Date [...] Encounters Date Type Department Care Team Description 01/10/2025 Orders Only [facility] [address] [place] [address] Christi Prieto MA Personal history of immunosuppression therapy (Primary Dx); Kidney replaced by transplant; Stage 3b chronic kidney disease (HCC); Hypertension; Hyperkalemia; Anemia in chronic kidney disease; Hyperlipidemia, not otherwise specified; Vitamin D deficiency, not otherwise specified; Idiopathic gout, not otherwise specified; Other hyperlipidemia; Hypomagnesemia; Other iron deficiency anemia; Other specified hypoparathyroidism (HCC); Albuminuria, not otherwise specified; Poor glycemic control 10/30/2024 Orders Only [facility] [address] [place] [address] Nasrin Foley FNP-C Kidney replaced by transplant (Primary Dx); Stage 3b chronic kidney disease (HCC); Personal history of immunosuppression therapy 10/26/2024 2:45 PM EDT Clinical Support [facility] [address] [place] [address] Nasrin Foley FNP-C Personal history of immunosuppression therapy (Primary Dx); Kidney replaced by transplant; Stage 3b chronic kidney disease (HCC); Hypertension; Anemia in chronic kidney disease 10/20/2024 Refill [facility] [address] [place] [address] Reynold Alberts MD 10/16/2024 Orders Only [facility] [address] [place] [address] Christi Prieto MA Personal history of immunosuppression therapy (Primary Dx); Kidney replaced by transplant; Stage 3b chronic kidney disease (HCC); Anemia in chronic kidney disease; Hyperkalemia; Hyperlipidemia, not otherwise specified; Other iron deficiency anemia; Hypoparathyroidism, not otherwise specified (HCC); Albuminuria, not otherwise specified from Last [...] Sign Reading Time Taken Comments Blood Pressure 110/58 10/26/2024 2:52 PM EDT Pulse 76 10/26/2024 2:52 PM EDT Temperature 36.6 C (97.9 F) 03/25/2021 8:35 AM EST Respiratory Rate 15 09/12/2020 10:55 AM EDT Oxygen Saturation 97% 01/02/2021 10:08 AM EDT Inhaled Oxygen Concentration - - Weight 90.7 kg (200 lb) 10/26/2024 2:52 PM EDT Height 177.8 cm (5' 10 ) 04/07/2024 10:01 AM EST Body Mass Index 28.7 04/07/2024 10:01 AM EST Plan of Treatment Upcoming Encounters Date Type Department Care Team (Late st Contact Info) Description 01/19/2025 10:00 AM EDT Office Visit [facility] [address] [place] [address] Reynold Alberts MD [address] [place] [id number] Health Maintenance Due Date Last Done Comments Colonoscopy (Post-Transplant Patient) 03/04/2021 Influenza Vaccine (#1) 2024 , 02/27/2020, 02/27/2020, Additional history exists Pneumococcal Vaccine: 50+ Years Completed 08/28/2020, 02/22/2018, 03/06/2014 Hepatitis B Vaccine Aged Out 09/05/2020, 05/08/2020, 04/15/2020, Additional history exists No longer eligible based on patient's age to complete this topic Procedures Procedure Name Priority Date/Time Associated Diagnosis Comments FERRITIN Routine 11/29/2024 10:44 AM EDT Kidney replaced by transplant Stage 3b chronic kidney disease (HCC) Personal history of immunosuppression therapy IRON PANEL (FE, TIBC, TSAT) Routine 11/29/2024 10:44 AM EDT Kidney replaced by transplant Stage 3b chronic kidney disease (HCC) Personal history of immunosuppression therapy URINE ALBUMIN / CREATININE RATIO Routine 11/29/2024 10:44 AM EDT Kidney replaced by transplant Stage 3b chronic kidney disease (HCC) Personal history of immunosuppression therapy URINALYSIS, COMPLETE Routine 11/29/2024 10:44 AM EDT Kidney replaced by transplant Stage 3b chronic kidney disease (HCC) Personal history of immunosuppression therapy TACROLIMUS, HIGHLY SENSITIVE, LC/MS/MS Routine 11/29/2024 10:44 AM EDT Kidney replaced by transplant Stage 3b chronic kidney disease (HCC) Personal history of immunosuppression therapy RENAL FUNCTION PANEL Routine 11/29/2024 10:44 AM EDT Kidney replaced by transplant Stage 3b chronic kidney disease (HCC) Personal history of immunosuppression therapy CBC AND DIFFERENTIAL Routine 11/29/2024 10:44 AM EDT Kidney replaced by transplant Stage 3b chronic kidney disease (HCC) Personal history of immunosuppression therapy MICROSCOPIC EXAMINATION - DO NOT USE Routine 11/29/2024 10:44 AM EDT URINALYSIS, COMPLETE Routine 10/23/2024 10:31 AM EDT Personal history of immunosuppression therapy Kidney replaced by transplant Stage 3b chronic kidney disease (HCC) Anemia in chronic kidney disease Hyperkalemia Hyperlipidemia, not otherwise specified Other iron deficiency anemia Hypoparathyroidism, not otherwise specified (HCC) Albuminuria, not otherwise specified URINE ALBUMIN / CREATININE RATIO Routine 10/23/2024 10:31 AM EDT Personal history of immunosuppression therapy Kidney replaced by transplant Stage 3b chronic kidney disease (HCC) Anemia in chronic kidney disease Hyperkalemia Hyperlipidemia, not otherwise specified Other iron deficiency anemia Hypoparathyroidism, not otherwise specified (HCC) Albuminuria, not otherwise specified PTH, INTACT Routine 10/23/2024 10:31 AM EDT Personal history of immunosuppression therapy Kidney replaced by transplant Stage 3b chronic kidney disease (HCC) Anemia in chronic kidney disease Hyperkalemia Hyperlipidemia, not otherwise specified Other iron deficiency anemia Hypoparathyroidism, not otherwise specified (HCC) Albuminuria, not otherwise specified IRON PANEL (FE, TIBC, TSAT) Routine 10/23/2024 10:31 AM EDT Personal history of immunosuppression therapy Kidney replaced by transplant Stage 3b chronic kidney disease (HCC) Anemia in chronic kidney disease Hyperkalemia Hyperlipidemia, not otherwise specified Other iron deficiency anemia Hypoparathyroidism, not otherwise specified (HCC) Albuminuria, not otherwise specified FERRITIN Routine 10/23/2024 10:31 AM EDT Personal history of immunosuppression therapy Kidney replaced by transplant Stage 3b chronic kidney disease (HCC) Anemia in chronic kidney disease Hyperkalemia Hyperlipidemia, not otherwise specified Other iron deficiency anemia Hypoparathyroidism, not otherwise specified (HCC) Albuminuria, not otherwise specified CREATINE KINASE Routine 10/23/2024 10:31 AM EDT Personal history of immunosuppression therapy Kidney replaced by transplant Stage 3b chronic kidney disease (HCC) Anemia in chronic kidney disease Hyperkalemia Hyperlipidemia, not otherwise specified Other iron deficiency anemia Hypoparathyroidism, not otherwise specified (HCC) Albuminuria, not otherwise specified ALT Routine 10/23/2024 10:31 AM EDT Personal history of immunosuppression therapy Kidney replaced by transplant Stage 3b chronic kidney disease (HCC) Anemia in chronic kidney disease Hyperkalemia Hyperlipidemia, not otherwise specified Other iron deficiency anemia Hypoparathyroidism, not otherwise specified (HCC) Albuminuria, not otherwise specified AST Routine 10/23/2024 10:31 AM EDT Personal history of immunosuppression therapy Kidney replaced by transplant Stage 3b chronic kidney disease (HCC) Anemia in chronic kidney disease Hyperkalemia Hyperlipidemia, not otherwise specified Other iron deficiency anemia Hypoparathyroidism, not otherwise specified (HCC) Albuminuria, not otherwise specified CBC AND DIFFERENTIAL Routine 10/23/2024 10:31 AM EDT Personal history of immunosuppression therapy Kidney replaced by transplant Stage 3b chronic kidney disease (HCC) Anemia in chronic kidney disease Hyperkalemia Hyperlipidemia, not otherwise specified Other iron deficiency anemia Hypoparathyroidism, not otherwise specified (HCC) Albuminuria, not otherwise specified RENAL FUNCTION PANEL Routine 10/23/2024 10:31 AM EDT Personal history of immunosuppression therapy Kidney replaced by transplant Stage 3b chronic kidney disease (HCC) Anemia in chronic kidney disease Hyperkalemia Hyperlipidemia, not otherwise specified Other iron deficiency anemia Hypoparathyroidism, not otherwise specified (HCC) Albuminuria, not otherwise specified MYCOPHENOLIC ACID AND METABO. Routine 10/23/2024 10:31 AM EDT Personal history of immunosuppression therapy Kidney replaced by transplant Stage 3b chronic kidney disease (HCC) Anemia in chronic kidney disease Hyperkalemia Hyperlipidemia, not otherwise specified Other iron deficiency anemia Hypoparathyroidism, not otherwise specified (HCC) Albuminuria, not otherwise specified TACROLIMUS, HIGHLY SENSITIVE, LC/MS/MS Routine 10/23/2024 10:31 AM EDT Personal history of immunosuppression therapy Kidney replaced by transplant Stage 3b chronic kidney disease (HCC) Anemia in chronic kidney disease Hyperkalemia Hyperlipidemia, not otherwise specified Other iron deficiency anemia Hypoparathyroidism, not otherwise specified (HCC) Albuminuria, not otherwise specified MICROSCOPIC EXAMINATION - DO NOT USE Routine 10/23/2024 10:31 AM EDT from Last 3 Months Results * Tacrolimus, Highly Sensitive, LC/MS/MS (11/29/2024 10:44 AM EDT) Only the most recent of2 resultswithin the time period is included. Pathologist [facility] [place] Tacrolimus by Immunoassay 7.3 5.0 - 20.0 ng/mL [facility] Comment: Detection Limit = 0.8 ng/mL Target steady state trough concentration for Tacrolimus varies based on type of organ transplant immunosuppressive protocol and other patient specific factors. Tacrolimus trough concentrations should be interpreted in conjunction with clinical assessments of rejection and tolerability. Values obtained with different assay methods cannot be used interchangeably due to differences in assay methods and cross-reactivty with metabolites, nor should correction factors be applied. Therefore, consistent use of one assay for individual patients is recommended. Tacrolimus assay performed by [facility]. 11/29/2024 10:4 4 AM EDT 11/29/2024 us Reynold Alberts MD LAB BLOOD ORDERABLES Final Result [facility] [address] [place] [phone] * Urinalysis, Complete w/reflex to Culture (11/29/2024 10:44 AM EDT) Only the most recent of2 resultswithin the time period is included. Pathologist [facility] [place] Specific [place], Urine 1.017 1.005 - 1.030 [facility] [phone] pH Urine 5.5 5.0 - 7.5 [facility] [phone] Color, Urine Yellow Yellow [facility] [phone] Appearance Urine Clear Clear [facility] [phone] WBC Esterase Urine Negative Negative [facility] [phone] Protein, Ur Trace Negative/Tra ce [facility] [phone] Glucose, Ur Negative Negative [facility] Ketones, Urine Negative Negative [facility] [phone] Blood Urine Negative Negative [facility] Bilirubin Urine Negative Negative [facility] Urobilinogen Urine 0.2 0.2 - 1.0 mg/dL [facility] [phone] Nitrite, Urine Negative Negative [facility] [phone] Microscopic Examination Comment [facility] Comment:Microscopic follows if indicated. Other Microsc. Observations See below: [facility] Comment:Microscopic was mary cated and was performed. URINALYSIS REFLEX Comment [facility] Comment:This specimen will n ot reflex to a Urine Culture. Urine Urine specimen obtained by clean catch procedure / Unknown 11/29/2024 10:44 AM EDT 11/29/2024 us Reynold Alberts MD LAB URINE ORDERABLES Final Result [facility] [address] [place] [address] * Microscopic Examination (11/29/2024 10:44 AM EDT) Only the most recent of2 resultswithin the time period is included. WBC, Urine None seen 0 - 5 /hpf [facility] RBC, Urine None seen 0 - 2 /hpf [facility] Squamous Epithelial, Urine 0-10 0 - 10 /hpf [facility] Casts None seen None seen /lpf [facility] Bacteria, Urine None seen None seen/Few [facility] 11/29/2024 10:4 4 AM EDT 11/29/2024 Reynold Alberts MD LAB MICROBIOLOGY - GENERAL ORDERABLES Final Result Performing Organization Address City/[facility]/ZIP Co de Phone Number [facility] [address] [place] [address] * Iron Panel (Fe, TIBC, TSAT) (11/29/2024 10:44 AM EDT) Only the most recent of2 resultswithin the time period is included. TIBC 302 250 - 450 ug/dL [facility] UIBC 153 111 - 343 ug/dL [facility] Iron 149 38 - 169 ug/dL [facility] Iron Saturation (TSat) 49 15 - 55 % [facility] Blood Venous blood / Unknown 11/29/2024 10:44 AM EDT 11/29/2024 Reynold Alberts MD LAB BLOOD ORDERABLES Final Result Performing Organization Address City/[facility]/ZIP Co de Phone Number [facility] [address] [place] [address] * Urine Albumin / Creatinine Ratio (11/29/2024 10:44 AM EDT) Only the most recent of2 resultswithin the time period is included. Creatinine, Ur 106.9 Not Estab. mg/dL [facility] Albumin, Urine 6.8 Not Estab. ug/mL [facility] Albumin/Creatin ine Ratio 6 0 - 29 mg/g creat [facility] Comment: Normal: 0 - 29 Moderately increased: 30 - 300 Severely increased: >300 Urine Urine specimen obtained by clean catch procedure / Unknown 11/29/2024 10:44 AM EDT 11/29/2024 us Reynold Alberts MD LAB URINE ORDERABLES Final Result [facility] [address] [place] [address] * (ABNORMAL) CBC and differential (11/29/2024 10:44 AM EDT) Only the most recent of2 resultswithin the time period is included. WBC 7.5 3.4 - 10.8 x10E3/uL [facility] RBC 3.30(L) 4.14 - 5.80 x10E6/uL [facility] Hemoglobin 10.1(L) 13.0 - 17.7 g/dL [facility] Hematocrit 31.5(L) 37.5 - 51.0 % [facility] MCV 96 79 - 97 fL [facility] MCH 30.6 26.6 - 33.0 pg [facility] MCHC 32.1 31.5 - 35.7 g/dL [facility] RDW 14.1 11.6 - 15.4 % [facility] Platelets 245 150 - 450 x10E3/uL [facility] Neutrophils Relative 73 Not Estab. % [facility] Lymphocytes Relative 13 Not Estab. % [facility] Monocytes 11 Not Estab. % [facility] Eosinophils Relative 3 Not Estab. % [facility] Basophils Relative 0 Not Estab. % [facility] Neutrophils Absolute 5.5 1.4 - 7.0 x10E3/uL [facility] Lymphocytes Absolute 1.0 0.7 - 3.1 x10E3/uL [facility] Monocytes Absolute 0.8 0.1 - 0.9 x10E3/uL [facility] Eosinophils Absolute 0.2 0.0 - 0.4 x10E3/uL [facility] Basophils Absolute 0.0 0.0 - 0.2 x10E3/uL [facility] Immature Granulocytes 0 Not Estab. % [facility] Immature Grans (Absolute) 0.0 0.0 - 0.1 x10E3/uL [facility] Blood Venous blood / Unknown 11/29/2024 10:44 AM EDT 11/29/2024 Reynold Alberts MD LAB BLOOD ORDERABLES Final Result [facility] [address] [place] [address] * Ferritin (11/29/2024 10:44 AM EDT) Only the most recent of2 resultswithin the time period is included. Ferritin 96 30 - 400 ng/mL [facility] Blood Venous blood / Unknown 11/29/2024 10:44 AM EDT 11/29/2024 Reynold Alberts MD LAB BLOOD ORDERABLES Final Result [facility] [address] [place] [address] * (ABNORMAL) Renal function panel (11/29/2024 10:44 AM EDT) Only the most recent of2 resultswithin the time period is included. Glucose 93 70 - 99 mg/dL [facility] BUN 41(H) 8 - 27 mg/dL [facility] Creatinine 2.46(H) 0.76 - 1.27 mg/dL [facility] eGFR CKD-EPI CR 2020 27(L) >59 mL/min/1.7 3 [facility] BUN/Creatinine Ratio 17 10 - 24 [facility] Sodium 143 134 - 144 mmol/L [facility] Potassium 5.3(H) 3.5 - 5.2 mmol/L [facility] Chloride 111(H) 96 - 106 mmol/L [facility] Bicarbonate (CO2) 17(L) 20 - 29 mmol/L [facility] Calcium 9.1 8.6 - 10.2 mg/dL [facility] Albumin 4.3 3.8 - 4.8 g/dL [facility] Phosphorus 2.8 2.8 - 4.1 mg/dL [facility] Blood Venous blood / Unknown 11/29/2024 10:44 AM EDT 11/29/2024 us Reynold Alberts MD LAB BLOOD ORDERABLES Final Result [facility] [address] [place] [address] * (ABNORMAL) Mycophenolic Acid and Metabo. (10/23/2024 10:31 AM EDT) Mycophenolic Acid 4.9(HH) 1.0 - 3.5 ug/mL [facility] Mycophenolic Acid Glucuronide 137(H) 35 - 100 ug/mL [facility] Comment:Please note refere nce interval change Blood Venous blood / Unknown 10/23/2024 10:31 AM EDT 10/23/2024 Narrative [facility] - 2024 12:05 PM EDT Test(s) 500172-Nncadajilxqn Acid; 913410- Mycophenolic Acid Glucuronide was developed and its performance characteristics determined by [facility]. It has not been cleared or approved by the Food and Drug Administration. Reynold Alberts MD LAB BLOOD ORDERABLES Final Result [facility] [address] [place] [address] * ALT (10/23/2024 10:31 AM EDT) ALT (SGPT) 8 0 - 44 IU/L [facility] Blood Venous blood / Unknown 10/23/2024 10:31 AM EDT 10/23/2024 Reynold Alberts MD LAB BLOOD ORDERABLES Final Result Performing Organization Address City/[facility]/ZIP Co de Phone Number [facility] [address] [place] [address] * AST (10/23/2024 10:31 AM EDT) AST (SGOT) 13 0 - 40 IU/L [facility] Blood Venous blood / Unknown 10/23/2024 10:31 AM EDT 10/23/2024 Reynold Alberts MD LAB BLOOD ORDERABLES Final Result Performing Organization Address City/[facility]/ZIP Co de Phone Number [facility] [address] [place] [address] * (ABNORMAL) PTH, Intact (10/23/2024 10:31 AM EDT) PTH 71(H) 15 - 65 pg/mL [facility] Blood Venous blood / Unknown 10/23/2024 10:31 AM EDT 10/23/2024 Reynold Alberts MD LAB BLOOD ORDERABLES Final Result [facility] [address] [place] [address] * CK (10/23/2024 10:31 AM EDT) Creatine Kinase (CK/CPK) 67 41 - 331 U/L [facility] Blood Venous blood / Unknown 10/23/2024 10:31 AM EDT 10/23/2024 Reynold Alberts MD LAB BLOOD ORDERABLES Final Result Performing Organization Address City/[facility]/ZIP Co de Phone Number [facility] [address] [place] [address] from Last 3 Months Insurance [facility] Care Teams Center Hole Reamer Relationship Specialty Start Date End Date Forrest Ayoub NP [address] [place] [address] PCP - General Nurse Practitioner 11/27/19
[2025-01-12 10:38] VITALS: PULSE 81; O2SAT 96
== END 2025-01-12 09:56 | disposition home or self-care (01) ==
LOC: HO.RESP 09:55
PROVIDERS: PCP Nurse Practitioner Family; Visit Provider Nurse Practitioner Family
DX: J15.9 Unspecified bacterial pneumonia (principal); J44.9 Chronic obstructive pulmonary disease, unspecified; J06.9 Acute upper respiratory infection, unspecified
CPT/HCPCS: 94010; 94640; 94727; 94729

== ENCOUNTER → 2025-01-12 09:58 | Outpatient (BNV) | payer MEDICARE, SELFPAY | PROVIDERS: PCP Nurse Practitioner Family; Visit Provider Internal Medicine Pulmonary Disease | DX: J15.9 Unspecified bacterial pneumonia (principal) | CPT/HCPCS: 94060; 94727; 94729 ==

== ENCOUNTER 2025-01-26 16:27 | Outpatient (REF) | payer MEDICARE, SELFPAY ==
--- OUTSIDE RECORDS SUMMARY | 2025-01-19 10:00 | XMS_ITS | Encounter Summary ---
Author Organization [facility] [place], Address [address] [place] [address] Phone Care Team Providers Care Screening Representative Name Role Phone Forrest Ayoub NP Primary Care Provider [phone] Encounter Details Date Type Department Care Team (Late st Contact Info) Description 01/19/2025 10:00 AM EDT Office Visit [facility] [address] [place] [phone] Zohreh Patel MD [address] [place] [address] [place] [phone] Kidney replaced by transplant (Primary Dx); Stage 3b chronic kidney disease (HCC); Diarrhea Social History Tobacco Use Types Packs/Day Years [...] on file documented as of this encounter Last Filed Vital Signs Vital Sign Reading Time Taken Comments Blood Pressure 96/56 01/19/2025 10:21 AM EDT Pulse 84 01/19/2025 10:21 AM EDT Temperature - - Respiratory Rate - - Oxygen Saturation - - Inhaled Oxygen Concentration - - Weight 89.7 kg (197 lb 12.8 oz) 025 10:21 AM EDT Height - - Body Mass Index 28.38 04/07/2024 10:01 AM EST documented in this encounter Progress Notes * Zohreh Patel MD - 01/19/2025 10:00 AM EDT PATIENT: Talha Sanchez : 1950 ENCOUNTER: 01/19/2025 PCP: Forrest Ayoub, CHUCKER Talha Sanchez is a 74 y.o. year old patient with a history of ESRD and is s/p kidney transplantation presenting for routine transplant follow up. Patient has been having diarrhea for the last 10 days. Just recently returned from [place]. Looks pretty ill. Labs were discussed and very consistent with volume depletion. Patient does not have any symptoms besides diarrhea. Denies any fever, chill or any abdominal pain. Continues to take Vitamin Kimberly the setting of volume depletion. PERTINENT TRANSPLANT HISTORY: Pre-Transplant [place] [facility] Diagnosis: ANCA vasculitis [place] [facility] Biopsy: Genetic Testing: [] Y/ [] N: Findings Dialysis History: [x]Y/ []N: Type/Date 02/20/2020 PD [place] [facility] Dialysis Access: none Prior Transplants: []Y/ [x] N: Date/ Immuno regimen/ Failure Reason Current Transplant Date of Surgery: 02/19/2021 Transplant Program: [facility] Donor Type: []DD []DCD []DBD [x]LRD (cousin) []LUR KDPI: n/a Pre-Transplant cPRA: 0% Induction Therapy: [place] Immunosuppression Therapy: [place] monotherapy Complications during perioperative period: uncomplicated aside from femoral DVT and compressing seroma with slight hydronephrosis. He underwent thrombectomy for the right femoral DVT and was placed on Coumadin. In regards to compressing seroma he underwent drainage with adequate resolution early inhis post transplantation course. Viral Studies Recipient Donor CMV positive negative EBV positive positive Hepatitis C Antibody negative negative Hepatitis B Core negative negative Hepatitis B Antigen negative -- Hepatitis B Antibody negative -- HIV BENJAMÍN -- negative Hep C BENJAMÍN negative negative Hep B BENJAMÍN -- negative Immunosuppression Regimen Target Level Indication Primary Tacro 6-9 Antimetabolite MMF 2-4 360mg bid s/p TCMR Steroid BK Monitoring (Monthly x 1 yr then quarterly x 1 yr; minimal 2x yr if positive hx of BK) No known history of BK. Biopsy History Biopsy Date and Reason: 02/19/22 1 year protocol Findings: suspicious for T-cell mediated rejection Treatment: oral prednisone taper (100mg x 3, then daily dose of 60mg, 40mg, 30mg, 20mg, 10mg) DSA: 02/17/22 no DSA detected Follow up biopsy and DSA: biopsy with molecular microscope in late Mar 2022 Biopsy Date and Reason: 05/05/22 1 month f/u TCMR Findings: negative for acute rejection; C4D negative; borderline changes from Oct have resolved. Treatment: n/a DSA: not done; missed by lab Follow up biopsy and DSA: DSA- pending; Omnigraf due in June Biopsy Date and Reason: 07/15/22 Omnigraf on 06/26/22 non-Tx Findings: Histologic sections show renal cortex and medulla with no significant changes. One arcuate or interlobar artery at the CMJ shows subendothelial and intimal CD3+ T cells, consistent with endarteritis. In the transplant setting vascular endarteritis can be a component of acute T- cell mediated rejection, [place] type II (favored in this case), or a component of early antibody interaction with endothelium. In the absence of other histologic features of T-cell or antibody mediated rejection, the finding of isolated vascular endarteritis should be correlated with the clinical presentation. (As discussed with Dr Alberts, 07/30/2022). Treatment: Dr. [place] spoke with Dr. Pacheco regarding treatment with thymo. Dr. Pacheco suggested holding off on thymo for now. Give solumedrol and pred taper and consider adding pred to immuno regimen. Biopsy post treatment and if cellular rejection still present, consider thymo. Per molecular microscope, no ABMR or TCMR noted. Dr. Alberts spoke with Dr. Pryor regarding prelim biopsy report. Pt did receive solumedrol 500mg IV x3 and will do pred taper however will not be started on pred daily as an added immuno per Dr. Alberts. DSA: 06/22/22 & 06/30/22 No DSA detected Follow up biopsy and DSA: Rpt biopsy in October per Dr. Alberts Final Diagnosis: 11/19/22 Renal Allograft, core biopsy (diagnosis based on LM): - Negative for acute rejection. - Arterial intimal fibrosis and medial thickening, with features of chronic transplant vasculopathy. - Negative for endarteritis. - Interstitial fibrosis limited to perivascular and corticomedullary junction areas with associated obsolete glomeruli. - Remaining glomeruli with no significant changes and minimal glomerulitis. - Arteriolar hyaline sclerosis, moderate. Comment: The allograft biopsy shows no significant tubulointerstitial changes except for a scar at the corticomedullary junction with obsolete glomeruli, not desk representative of the remaining cortex (7 of 13 obsolete glomeruli, % GS skewed by the scar area). 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 The prior biopsy ([id number],reviewed at present for comparison) revealed a single large artery at the corticomedullary junctionwith isolated endarteritis (v1 lesion) in the absence of tubulointerstitial rejection. Endarteritisis not identified in the current biopsy. Molecular Microscope Dx gene expression profiles results is concordant with the histologic findings. In the interval since our last visit I have had the opportunity to review the following, if available: -laboratory data, imaging studies, and cardiovascular data -current medications from the patient; any changes from previous (including information from the patient's pharmacy, [facility], and Care Everywhere) -Transplant Data Sheet During this visit I had the opportunity for a full review of systems and limited physical exam as outlined below, with the pertinent findings noted and others found to be negative or noncontributory to the current assessment of this patient. HPI and recent/active issues include: Chief Complaint Headaches and dizziness due to a cold and allergies, shortness of breath History of Present Illness Patient returns to the clinic for a regular follow up visit. Patient has been having diarrhea for the last 10 days. Just recently returned from [place]. Looks pretty ill. Labs were discussed and very consistent with volume depletion. Patient does not have any symptoms besides diarrhea. Denies any fever, chill or any abdominal pain. Continues to take Vitamin C in the setting of volume depletion. Medications and Supplements - Tacrolimus 3 mg by mouth in the morning, 2 mg at night. - Kayexalate powder for potassium once a week, sometimes 3 times a week. - Protonix 40 mg by mouth daily. - Aspirin 81 mg by mouth daily. - Myfortic 360 mg by mouth twice a day. - Carvedilol 3.125 mg by mouth twice a day. - Vitamin C 1000 mg by mouth daily. Review of Systems General: Negative for fever, chills, fatigue, muscle aches, appetite or weight change. HEENT: Positive for headaches. Cardiovascular: Negative for chest pain. Respiratory: Positive for shortness of breath. Gastrointestinal: +diarrhea, no abdominal pain Genitourinary: Negative for difficulty urinating, blood in urine, pain. Neurological: Positive for dizziness. 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 Physical Examination Respiratory: Lungs clear. Cardiovascular: Heart regular, no extra sounds. No edema No rash Abdomen soft and lax Patient looks visibly ill LABS: Chemistry Lab Units 01/15/25 1104 11/29/24 1044 10/23/24 1031 08/15/24 0944 06/12/24 1059 04/05/24 1026 02/09/24 1038 07/08/23 1036 05/06/23 1125 03/09/23 1005 CREATININE mg/dL 2.72* 2.46* 2.40* 1.96* 1.97* 1.85* 1.99* < > 2.1* 2.1* BUN mg/dL 43* 41* 41* 35* 35* 31* 32* < > 36* 37* POTASSIUM mmol/L 5.7* 5.3* 4.9 5.4* 4.9 4.8 5.0 < > 5.5* 5.0 SODIUM mmol/L 143 143 139 143 143 143 143 < > 140 141 CO2 mmol/L 13* 17* 15* 17* 18* 17* 20 < > 20* 20* CHLORIDE mmol/L 114* 111* 109* 110* 109* 109* 108* < > 111* 113* ALBUMIN g/dL 4.0 4.3 4.2 4.3 4.4 4.1 4.4 < > 4.2 4.3 EGFRNAFR ML/MIN/1.73 M2 -- -- -- -- -- -- -- -- 34 32 HEMOGLOBIN A1C % 5.8* -- -- -- -- -- 5.8* -- -- 5.5 WBC AUTO x10E3/uL 7.4 7.5 7.3 8.2 6.7 6.7 7.3 < > 6.7 8.5 HEMATOCRIT % 32.3* 31.5* 34.0* 34.6* 34.9* 34.2* 35.2* < > 36.1* 35.9* HEMOGLOBIN g/dL 10.0* 10.1* 10.6* 11.0* 11.2* 10.9* 11.5* < > 11.0* 10.7* PLATELETS AUTO x10E3/uL 337 245 185 220 243 209 210 < > 218 227 < > = values in this interval not displayed. Bone Mineral Lab Units 01/15/25 1104 11/29/24 1044 10/23/24 1031 08/15/24 0944 06/12/24 1059 04/05/24 1026 02/09/24 1038 05/06/23 1125 03/09/23 1005 CALCIUM mg/dL 9.1 9.1 9.1 8.9 9.2 8.9 9.1 < > 8.9 PHOSPHORUS mg/dL 3.2 2.8 3.0 2.9 3.3 2.5* 3.1 < > 2.3* PTH pg/mL 60 -- 71* 64 -- -- 52 -- 50 VITAMIN D NG/ML -- -- -- -- -- -- -- -- 41.9 VIT D 25 HYDROXY ng/mL 32.7 -- -- 40.4 -- -- 38.5 -- -- < > = values in this interval not displayed. Urine Lab Units 01/15/25 1104 11/29/24 1044 10/23/24 1031 08/15/24 0944 06/12/24 1059 04/05/24 1026 02/09/24 1038 11/15/23 1111 09/06/23 1025 07/08/23 1036 PROT/CREAT RATIO UR mg/g creat -- -- -- -- 134 132 105 89 88 98 ALB MG/G CREAT UR mg/g creat 12 6 9 11 -- -- -- -- -- -- Visit Diagnoses and Active Issues: 1. Kidney replaced by transplant 2. Stage 3b chronic kidney disease (HCC) 3. Diarrhea SUMMARY: Based on the above findings and my interpretation of the available data and medication review, the following changes and/or recommendations for further testing, monitoring, treatment options, and follow-up are provided for your review: Kidney transplant status Assessment: Patient is 3.5 years post-kidney transplant with stable graft function. Creatinine trending upwards likely due to patient being ill. Currently battling diarrhea for the last 10 days. Plan: - Continue current immunosuppression regimen: - Tacrolimus 3 mg PO in the morning, 2 mg PO at night - Myfortic 360 mg PO twice daily - Monitor kidney function with regular lab tests - Maintain salt restriction in diet Hyperkalemia Assessment: Recent potassium level is 5.4, slightly above normal range. Patient is currently managed with kayexalate powder for potassium binding, used once to three times weekly as needed. Plan: - Continue current regimen for potassium: once weekly, increasing to three times weekly as needed - limit potassium intake - Monitor potassium levels with regular lab tests Stable anemia Assessment: Patient has stable anemia with a hemoglobin of 11 g/dL. This is likely multifactorial, related to chronic kidney disease and post-transplant status. Plan: - Continue current management - Monitor hemoglobin levels with regular lab tests - monitor and replace iron as needed Diarrhea: Will hydrate the patient with IV fluids today Obtain blood work on Wednesday again including CMV at this time If diarrhea continues, will obtain C. Diff Patient will also hold off on his Vitamin C at this time Hypertension BP is low today Pt will hold off on carvedilol today and tomorrow while diarrhea is on-going Will resume on Wednesday Acidosis: Starting sodium bicarb tablets 650 mg BID Discussed with Dr. Lexus Patel MD PGY-4 Renal Fellow. Orders Placed This Encounter Renal function panel Magnesium CMV PCR Quantitative sodium bicarbonate 650 MG tablet ATTENDING FACILITIES ADMINISTRATOR ATTESTATION: The patient was seen and evaluated with the nephrology fellow at the time of visit. The pertinent data, history, recent events and active issues were discussed. Medications were reviewed. The plan was formulated with the fellow and discussed with the patient and/or family or guardian at the time ofvisit. Questions were answered to the satisfaction of the patient. The care plan is outlined in thenote above and has been approved by me. Reynold Alberts MD documented in this encounter Plan of Treatment Upcoming Encounters Date Type Department Care Team (Late st Contact Info) Description 04/04/2025 10:15 AM EST Office Visit [facility] [address] [place] [phone] Reynold Alberts MD [address] [place] [address] [place] [phone] documented as of this encounter Procedures Procedure Name Priority Date/Time Associated Diagnosis Comments CMV DNA, QUANTITATIVE, PCR Routine 01/22/2025 11:27 AM EDT Kidney replaced by transplant Stage 3b chronic kidney disease (HCC) MAGNESIUM Routine 01/22/2025 11:27 AM EDT Kidney replaced by transplant Stage 3b chronic kidney disease (HCC) RENAL FUNCTION PANEL Routine 01/22/2025 11:27 AM EDT Kidney replaced by transplant Stage 3b chronic kidney disease (HCC) documented in this encounter Results * CMV PCR Quantitative (01/22/2025 11:27 AM EDT) CMV Quant DNA PCR Negative Negative IU/mL [facility] Comment: No CMV DNA detected. The quantitative range of this assay is 200 to 1 million IU/mL. Log 10 CMV QN DNA Plasma CANCELED log10 IU/mL [facility] Comment: Unable to calculate result since non-numeric result obtained for component test. Result canceled by the ancillary. Blood Venous blood / Unknown 01/22/2025 11:27 AM EDT 01/22/2025 Reynold Alberts MD LAB BLOOD ORDERABLES Edite d Result - [facility] [address] [place] [address] * (ABNORMAL) Magnesium (01/22/2025 11:27 AM EDT) Magnesium 1.3(L) 1.6 - 2.3 mg/dL [facility] Blood Venous blood / Unknown 01/22/2025 11:27 AM EDT 01/22/2025 Reynold Alberts MD LAB BLOOD ORDERABLES Final Result [facility] [address] [place] [address] * (ABNORMAL) Renal function panel (01/22/2025 11:27 AM EDT) Glucose 95 70 - 99 mg/dL [facility] BUN 35(H) 8 - 27 mg/dL [facility] Creatinine 2.26(H) 0.76 - 1.27 mg/dL [facility] eGFR CKD-EPI CR 2020 30(L) >59 mL/min/1.7 3 [facility] BUN/Creatinine Ratio 15 10 - 24 [facility] Sodium 139 134 - 144 mmol/L [facility] Potassium 5.2 3.5 - 5.2 mmol/L [facility] Chloride 110(H) 96 - 106 mmol/L [facility] Bicarbonate (CO2) 15(L) 20 - 29 mmol/L [facility] Comment:Verified by repeat analysis Calcium 8.6 8.6 - 10.2 mg/dL [facility] Albumin 3.9 3.8 - 4.8 g/dL [facility] Phosphorus 3.0 2.8 - 4.1 mg/dL [facility] Blood Venous blood / Unknown 01/22/2025 11:27 AM EDT 01/22/2025 us Reynold Alberts MD LAB BLOOD ORDERABLES Final Result [facility] [address] [place] [phone] documented in this encounter Visit Diagnoses Diagnosis Kidney replaced by transplant- Primary Stage 3b chronic kidney disease (HCC) Diarrhea documented in this encounter Care Teams Screening Representative Relationship Specialty Start Date End Date Forrest Ayoub [place] [address] PCP - General Nurse Practitioner 11/27/19 documented as of this encounter
--- OUTSIDE RECORDS SUMMARY | 2025-01-19 11:00 | XMS_ITS | Encounter Summary ---
Author Organization [facility], Address [address] [place] [address] Phone Care Team Providers Care Senior Construction Estimator Name Role Phone Jerardofrankie Forrest PAREDES Primary Care Provider [phone] Encounter Details Date Type Department Care Team (Late Contact Info) Description 01/19/2025 11:00 AM EDT [facility]fusion [facility] [address] [place] [phone] Maria E Khanna, RN [address] [place] [address] [place] [address] Stage 3b chronic kidney disease (HCC) [N18.32] (Primary Dx); Kidney replaced by transplant [Z94.0]; Volume depletion, not otherwise specified [E86.9] Social History Tobacco Use Types Packs/Day Years [...] Department Care Team (Late Contact Info) Description 04/04/2025 10:15 AM EST Office Visit [facility] [address] [place] [phone] Reynold Alberts MD [address] [place] [address] documented as of this encounter Visit Diagnoses Diagnosis Stage 3b chronic kidney disease (HCC) [N18.32]- Primary Kidney replaced by transplant [Z94.0] Kidney replaced by transplant Volume depletion, not otherwise specified [E86.9] documented in this encounter Care Teams Senior Construction Estimator Relationship Specialty Start Date End Date Forrest Ayoub NP [facility] [place] [address] PCP - General Nurse Practitioner 11/27/19 documented as of this encounter
--- NOTE | ~2025-01-26 | CT_ITS ---
EXAMINATION: CT CHEST WITHOUT CONTRAST CLINICAL INFORMATION: Pneumonia COMPARISON: October 14, 2024 TECHNIQUE: Multidetector volumetric CT imaging of the chest was done. Axial MIP volume rendering provided. Sagittal and coronal reformatted images were obtained. This CT examination was performed using dose optimization techniques as appropriate, variously including the following: *Automated exposure control *Adjustment of mA and/or kV according to patient size (this includes techniques or standardized protocols for targeted exams where dose is matched to indication/reason for exam; i.e. extremities or head) *Use of iterative reconstruction technique FINDINGS: LUNGS: Again seen is honeycombing along the posterior major fissure in the right upper lobe Paraseptal blebs are present in the bilateral upper lobes and in the superior right lower lobe. There are coarse reticular and groundglass densities the peripheral lung bases and upper lobes. There is mild bronchiectasis in the right lower lobe. MEDIASTINUM: There is a hiatal hernia involving stomach fundus. It is a sliding type hernia. CORONARY ARTERY CALCIFICATION: Present PLEURA: There is no pleural effusion. No pleural mass or thickening. AXILLA: No lymphadenopathy. UPPER ABDOMEN: Moderately severe renal cortical atrophy is present bilaterally, unchanged. OSSEOUS STRUCTURES: Mild degenerative changes are present in the thoracic spine with bridging anterior osteophytes in the lower region. CT/CT chest wo IV con IMPRESSION: Stable chronic interstitial disease Moderately severe renal cortical atrophy. Moderate size sliding hiatal hernia. Coronary artery disease. Fleischner guidelines were followed. Electronically signed by: Des Bear MD 01/26/2025 05:28 PM EDT
--- OUTSIDE RECORDS SUMMARY | 2025-01-26 16:29 | XMS_ITS | Encounter Summary ---
Author Organization [facility] Address [address] [place] [address] Phone Care Team Providers Care Freight Manager Name Role Phone GordonForerst gilliam LENA Primary Care Provider [phone] Encounter Details Date Type Department Care Team (Late st Contact Info) Description 05/14/2022 Documentation Only [facility] [address] [place] [phone] Darrell Parekh PA [address] [place] [address] [place] [address] Social History Tobacco Use Types [...] Visit [facility] [place] [address] [place] [phone] Reynold Alberts MD [address] [place] [address] [place] [phone] documented as of this encounter Visit Diagnoses Not on filedocumented in this encounter Care Teams Freight Manager Relationship Specialty Start Date End Date Forrest Ayoub NP [facility] [place] [address] PCP - General Nurse Practitioner 11/27/19 documented as of this encounter
--- OUTSIDE RECORDS SUMMARY | 2025-01-26 16:29 | XMS_ITS | Encounter Summary ---
Author Organization [facility] [address] Phone Care Team Providers Care Machine Egg Washer Name Role Phone JaidaildaForrest gilliam LENA Primary Care Provider [phone] Encounter Details Date Type Department Care Team (Late Contact Info) Description 04/21/2022 Documentation Only [facility] [address] [place] [address] Kalli KumariCalcium, [place] [address] [place] [address] Social History Tobacco Use Types [...] Visit [facility] [place] [address] [place] [address] Reynold Alberts MD [address] [address] [place] [address] documented as of this encounter Visit Diagnoses Not on filedocumented in this encounter Care Teams Machine Egg Washer Relationship Specialty Start Date End Date Forrest Ayoub NP [facility] [address] PCP - General Nurse Practitioner 11/27/19 documented as of this encounter
--- OUTSIDE RECORDS SUMMARY | 2025-01-26 16:29 | XMS_ITS | Encounter Summary ---
Author Organization [facility] [place], [place] [address] [place] [address] Phone Care Team Providers Care Cardiovascular Technologist Name Role Phone GordonForrest gilliam LENA Primary Care Provider [phone] Reason for Visit * Reason Comments Med Refill Encounter Details Date Type Department Care Team (Late Contact Info) Description 12/17/2020 Refill [facility] [address] [place] [phone] Rajiv Ghosh MD [address] [place] [address] [place] [address] Social History Tobacco Use Types [...] Visit [facility] [place] [address] [address] Reynold Alberts MD [address] [facility] [place] [address] documented as of this encounter Visit Diagnoses Not on filedocumented in this encounter Care Teams Cardiovascular Technologist Relationship Specialty Start Date End Date Forrest Ayoub NP [address] [place] [address] PCP - General Nurse Practitioner 11/27/19 documented as of this encounter
--- OUTSIDE RECORDS SUMMARY | 2025-01-26 16:29 | XMS_ITS | Encounter Summary ---
Author Organization [facility], Address [address] [place] [address] Phone Care Team Providers Care Provider Relations Advocate Name Role Phone Gordonmane Forrest PAREDES Primary Care Provider [phone] Reason for Visit * Reason Comments Med Refill Encounter Details Date Type Department Care Team (Late Contact Info) Description 05/02/2020 Refill [facility] [address] [place] [address] Rajiv Ghosh MD [address] [place] [address] [place] [phone] Social History Tobacco Use Types Packs/Day Years [...] Visit [facility] [address] [place] [address] Reynold Alberts MD [address] [place] [address] documented as of this encounter Visit Diagnoses Not on filedocumented in this encounter Care Teams Provider Relations Advocate Relationship Specialty Start Date End Date Forrest Ayoub NP [address] [place] [address] PCP - General Nurse Practitioner 11/27/19 documented as of this encounter
--- OUTSIDE RECORDS SUMMARY | 2025-01-26 16:29 | XMS_ITS | Encounter Summary ---
Author Organization [facility] [place], [place] [address] Phone Care Team Providers Care Printer Assistant Name Role Phone GordonForrest gilliam LENA Primary Care Provider [phone] Reason for Visit * Reason Comments Med Refill Encounter Details Date Type Department Care Team (Late Contact Info) Description 02/06/2021 Refill [facility] [address] [place] [address] Rajiv Ghosh MD [address] [place] [address] [place] [address] Social History Tobacco Use Types [...] Visit [facility] [place] [address] [place] [address] Reynold Alberts MD [address] [facility] [place] [address] documented as of this encounter Visit Diagnoses Not on filedocumented in this encounter Care Teams Printer Assistant Relationship Specialty Start Date End Date Forrest Ayoub NP [address] [place] [address] PCP - General Nurse Practitioner 11/27/19 documented as of this encounter
--- OUTSIDE RECORDS SUMMARY | 2025-01-26 16:29 | XMS_ITS | Encounter Summary ---
Author Organization [facility] [place] [address] Phone Care Team Providers Care Cube Machine Tender Name Role Phone JaidaildaForrest gilliam LENA Primary Care Provider [phone] Encounter Details Date Type Department Care Team (Late st Contact Info) Description 06/23/2022 Documentation Only [facility] [address] [place] [address] Angela PrietoJen[place], [place] [address] [place] [address] Social History Tobacco Use Types [...] Visit [facility] [place] [address] [place] [address] Reynold Alberts MD [address] [facility] [place] [address] documented as of this encounter Visit Diagnoses Not on filedocumented in this encounter Care Teams Cube Machine Tender Relationship Specialty Start Date End Date Forrest Ayoub NP [facility] [place] [address] PCP - General Nurse Practitioner 11/27/19 documented as of this encounter
--- OUTSIDE RECORDS SUMMARY | 2025-01-26 16:29 | XMS_ITS | Encounter Summary ---
Author Organization [facility] Address [address] [place] [address] Phone Care Team Providers Care Soda Flaker Name Role Phone GordonForrest gilliam LENA Primary Care Provider [phone] Encounter Details Date Type Department Care Team (Late st Contact Info) Description 07/07/2022 Documentation Only [facility] [address] [place] [address] Darrell Parekh PA [address] [place] [address] [place] [address] Social History Tobacco Use Types [...] Visit [facility] [place] [address] [place] [address] Reynold Alberts MD [address] [place] [address] [place] [address] documented as of this encounter Visit Diagnoses Not on filedocumented in this encounter Care Teams Soda Flaker Relationship Specialty Start Date End Date Forrest Ayoub NP [facility] [place] [address] PCP - General Nurse Practitioner 11/27/19 documented as of this encounter
--- OUTSIDE RECORDS SUMMARY | 2025-01-26 16:29 | XMS_ITS | Encounter Summary ---
Author Organization [facility], Address [address] [place] [address] Phone Care Team Providers Care Corporate Compliance Manager Name Role Phone Gorodnmane Forrest PAREDES Primary Care Provider [phone] Reason for Visit * Reason Comments Med Refill Encounter Details Date Type Department Care Team (Late Contact Info) Description 10/17/2020 [facility]ill [facility] [address] [place] [address] Rajiv Ghosh MD [address] [place] [address] [place] [address] Social History Tobacco Use Types Packs/Day Years [...] Visit [facility] [address] [place] [address] Reynold Alberts MD [address] [place] [address] documented as of this encounter Visit Diagnoses Not on filedocumented in this encounter Care Teams Corporate Compliance Manager Relationship Specialty Start Date End Date Forrest Ayoub NP [address] [place] [address] PCP - General Nurse Practitioner 11/27/19 documented as of this encounter
--- OUTSIDE RECORDS SUMMARY | 2025-01-26 16:29 | XMS_ITS | Encounter Summary ---
Author Organization [facility] [place] [address] Phone Care Team Providers Care Early Childhood Teacher Name Role Phone JaidaildaForrest gilliam LENA Primary Care Provider [phone] Encounter Details Date Type Department Care Team (Late st Contact Info) Description 06/23/2022 Documentation Only [facility] [address] [facility] [place] [address] Angela PrietoMcGregor, [place] [address] [place] [address] Social History Tobacco Use Types [...] Visit [facility] [place] [address] [facility] [place] [address] Reynold Alberts MD [address] [facility] [place] [address] documented as of this encounter Visit Diagnoses Not on filedocumented in this encounter Care Teams Early Childhood Teacher Relationship Specialty Start Date End Date Forrest Ayoub NP [facility] [place] [address] PCP - General Nurse Practitioner 11/27/19 documented as of this encounter
--- OUTSIDE RECORDS SUMMARY | 2025-01-26 16:29 | XMS_ITS | Encounter Summary ---
Author Organization [facility] [place] [address] Phone Care Team Providers Care Radiator Core Tester Name Role Phone JaidaildaForrest gilliam LENA Primary Care Provider [phone] Encounter Details Date Type Department Care Team (Late st Contact Info) Description 07/07/2022 Documentation Only [facility] [address] [facility] [place] [address] Kalli KumariSeneca, [place] [address] [place] [address] Social History Tobacco Use Types [...] Visit [facility] [place] [address] [facility] [place] [address] Reynold Alberts MD [address] [facility] [address] [place] [address] documented as of this encounter Visit Diagnoses Not on filedocumented in this encounter Care Teams Radiator Core Tester Relationship Specialty Start Date End Date Forrest Ayoub NP [facility] [place] [address] PCP - General Nurse Practitioner 11/27/19 documented as of this encounter
--- OUTSIDE RECORDS SUMMARY | 2025-01-26 16:29 | XMS_ITS | Encounter Summary ---
Author Organization [facility] Address [address] [place] [address] Phone Care Team Providers Care Merchandise Clerk Name Role Phone GordonForrest gilliam LENA Primary Care Provider [phone] Encounter Details Date Type Department Care Team (Late st Contact Info) Description 07/07/2022 Documentation Only [facility] [address] [place] [address] Darrell Parekh PA [address] [place] [address] [place] [address] Social History Tobacco Use Types [...] Visit [facility] [place] [address] [place] [address] Reynold Alberts MD [address] [place] [address] [place] [address] documented as of this encounter Visit Diagnoses Not on filedocumented in this encounter Care Teams Merchandise Clerk Relationship Specialty Start Date End Date Forrest Ayoub NP [facility] [place] [address] PCP - General Nurse Practitioner 11/27/19 documented as of this encounter
--- OUTSIDE RECORDS SUMMARY | 2025-01-26 16:29 | XMS_ITS | Encounter Summary ---
Author Organization [facility], [place] [address] [place] [address] Phone Care Team Providers Care Physical Science Aide Name Role Phone GordonForrest gilliam LENA Primary Care Provider Reason for Visit * Reason Comments Med Refill Encounter Details Date Type Department Care Team (Late Contact Info) Description 10/12/2022 Refill [facility] [address] [place] [address] Reynold Alberts MD [address] [place] [address] [place] [address] Social History Tobacco Use Types [...] [facility] [address] [place] [address] Reynold Alberts MD [address] [place] [address] [place] [address] documented as of this encounter Visit Diagnoses Not on filedocumented in this encounter Care Teams Physical Science Aide Relationship Specialty Start Date End Date Forrest Ayou[place] [address] PCP - General Nurse Practitioner 11/27/19 documented as of this encounter
--- OUTSIDE RECORDS SUMMARY | 2025-01-26 16:29 | XMS_ITS | Encounter Summary ---
Author Organization [facility], [place] [address] [place] [address] Phone Care Team Providers Care Filer Metal Patterns Name Role Phone Gordonmane Forrest PAREDES Primary Care Provider [phone] Reason for Visit * Reason Comments Med Refill Encounter Details Date Type Department Care Team (Late Contact Info) Description 06/12/2022 Refill [facility] [address] [place] [address] Darrell Parekh PA [address] [place] [address] [place] [address] Social History Tobacco Use Types [...] Visit [facility] [address] [place] [address] Reynold Alberts MD [address] [place] [address] [place] [address] documented as of this encounter Visit Diagnoses Not on filedocumented in this encounter Care Teams Filer Metal Patterns Relationship Specialty Start Date End Date Forrest Ayoub NP [facility] [place] [address] PCP - General Nurse Practitioner 11/27/19 documented as of this encounter
--- OUTSIDE RECORDS SUMMARY | 2025-01-26 16:29 | XMS_ITS | Encounter Summary ---
Author Organization [facility] Address [address] [place] [address] Phone Care Team Providers Care Sign Maker Name Role Phone GordonForrest gilliam LENA Primary Care Provider [phone] Encounter Details Date Type Department Care Team (Late st Contact Info) Description 07/21/2022 Documentation Only [facility] [address] [place] [address] Darrell Parekh PA [address] [place] [address] [place] [address] Social History Tobacco Use Types [...] Visit [facility] [place] [address] [place] [address] Reynold Alberts MD [address] [place] [address] [place] [address] documented as of this encounter Visit Diagnoses Not on filedocumented in this encounter Care Teams Sign Maker Relationship Specialty Start Date End Date Forrest Ayoub NP [facility] [place] [address] PCP - General Nurse Practitioner 11/27/19 documented as of this encounter
--- OUTSIDE RECORDS SUMMARY | 2025-01-26 16:30 | XMS_ITS | Encounter Summary ---
Author Organization [facility] Address [address] [place] [address] Phone Care Team Providers Care Casing Sewer Name Role Phone GordonForrest gilliam LENA Primary Care Provider [phone] Encounter Details Date Type Department Care Team (Late Contact Info) Description 08/26/2021 Documentation Only [facility] [address] [place] [place] [address] Darrell Parekh PA [address] [place] [address] Social History Tobacco Use Types Packs/Day Years [...] [facility] [place] [address] [place] [place] [address] Reynold Alberts MD [address] [place] [address] documented as of this encounter Visit Diagnoses Not on filedocumented in this encounter Care Teams Casing Sewer Relationship Specialty Start Date End Date Forrest Ayoub NP [address] [place] [address] PCP - General Nurse Practitioner 11/27/19 documented as of this encounter
--- OUTSIDE RECORDS SUMMARY | 2025-01-26 16:30 | XMS_ITS | Encounter Summary ---
Author Organization [facility] Address [address] [place] [address] Phone Care Team Providers Care Pipe Manufacture Supervisor Name Role Phone GordonForrest gilliam LENA Primary Care Provider [phone] Encounter Details Date Type Department Care Team (Late st Contact Info) Description 10/20/2021 Documentation Only [facility] [address] [place] [address] Darrell Parekh PA [address] [place] [address] [place] [address] Social History Tobacco Use Types [...] Visit [facility] [place] [address] [place] [address] Reynold Alberts MD [address] [place] [address] [place] [address] documented as of this encounter Visit Diagnoses Not on filedocumented in this encounter Care Teams Pipe Manufacture Supervisor Relationship Specialty Start Date End Date Forrest Ayoub NP [facility] [place] [address] PCP - General Nurse Practitioner 11/27/19 documented as of this encounter
--- OUTSIDE RECORDS SUMMARY | 2025-01-26 16:30 | XMS_ITS | Patient Health Record ---
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) Active confirmed Problem Abnormal feces (329798246) Abnormal findings in stool (R19.5) Active confirmed Encounters Encounter Location Date Provider Diagnosis [facility] [address] [facility] [address] [place] [address] 05/22/2024 Galo Pang Jr Plan Of Treatment Future Test Test Name Order Date UPPER GI ENDOSCOPY 02/01/2020 COLONOSCOPY 02/01/2020 Insurance Providers Payer Name Payer Address Payer Phone Subscriber Number Group Number Insured Name Patient Relationship to Insured Coverage Start Date Coverage End Date [facility] [address] [place], [place] [id number] GRACY VILLANUEVA Self - patient is the insured Medical (General) History Medical History History ICD Code stage 5 kidney ds COPD depression Surgical History Surgery Date(Month/Year) toes vericose veins
--- OUTSIDE RECORDS SUMMARY | 2025-01-26 16:30 | XMS_ITS | Encounter Summary ---
Author Organization [facility] [place] [address] Phone Care Team Providers Care Hard Tile Setter Name Role Phone JaidaildaForrest gilliam LENA Primary Care Provider [phone] Encounter Details Date Type Department Care Team (Late st Contact Info) Description 09/28/2023 Documentation Only [facility] [address] [facility] [place] [address] Angela PrietoFort [place]erd[place], [place] [address] [place] [address] Social History Tobacco Use Types [...] Visit [facility] [place] [address] [facility] [place] [address] Reynold Alberts MD [address] [facility] [place] [address] documented as of this encounter Visit Diagnoses Not on filedocumented in this encounter Care Teams Hard Tile Setter Relationship Specialty Start Date End Date Forrest Ayoub NP [facility] [place] [address] PCP - General Nurse Practitioner 11/27/19 documented as of this encounter
--- OUTSIDE RECORDS SUMMARY | 2025-01-26 16:30 | XMS_ITS | Encounter Summary ---
Author Organization [facility] [place] [address] Phone Care Team Providers Care Rim Fire Priming Tool Setter Name Role Phone JaidaildaForrest gilliam LENA Primary Care Provider [phone] Encounter Details Date Type Department Care Team (Late Contact Info) Description 11/11/2022 Documentation Only [facility] [address] [place] [address] Kalli Kum[place], [place] [address] [place] [address] Social History Tobacco Use Types [...] Visit [facility] [place] [address] [place] [address] Reynold Alberts MD [address] [facility] [place] [address] documented as of this encounter Visit Diagnoses Not on filedocumented in this encounter Care Teams Rim Fire Priming Tool Setter Relationship Specialty Start Date End Date Forrest Ayoub NP [facility] [place] [address] PCP - General Nurse Practitioner 11/27/19 documented as of this encounter
--- OUTSIDE RECORDS SUMMARY | 2025-01-26 16:30 | XMS_ITS | Encounter Summary ---
Author Organization [facility] [place], Address [address] [place] [address] Phone Care Team Providers Care Plan Nurse Name Role Phone Gordonmane Forrest PAREDES Primary Care Provider Reason for Visit * Reason Comments Med Refill Encounter Details Date Type Department Care Team (Late Contact Info) Description 04/13/2020 Refill [facility] [address] [place] [address] Rajiv Ghosh MD [address] [facility] [place] [address] Social History Tobacco Use Types Packs/Day Years [...] Office Visit [facility] [address] [address] Reynold Alberts MD [address] [place] [address] documented as of this encounter Visit Diagnoses Not on filedocumented in this encounter Care Teams Plan Nurse Relationship Specialty Start Date End Date Forrest Ayoub NP [address] [place] [address] PCP - General Nurse Practitioner 11/27/19 documented as of this encounter
--- OUTSIDE RECORDS SUMMARY | 2025-01-26 16:30 | XMS_ITS | Clinical Summary ---
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 180 tablet 3 02/09/20 24 Active aspirin 81 MG chewable tablet Chew 81 mg 1 (one) time each day Active tacrolimus (PROGRAF) 1 MG capsule TAKE 3 CAPSULES BY MOUTH IN THE MORNING AND 2 CAPSULES IN THE EVENING 150 capsule 10 10/21/19 25 Active carvedilol (COREG) 3.125 MG tablet TAKE 1 TABLET (3.125 MG TOTAL) BY MOUTH IN THE MORNING AND IN THE EVENING WITH MEALS 180 tablet 3 01/18/20 25 Active sodium bicarbonate 650 MG tablet Take 1 tablet (650 mg total) by mouth in the morning and 1 tablet (650 mg total) in the evening. 180 tablet 3 01/20/20 25 026 Active carvedilol (COREG) 3.125 MG tablet Take 1 tablet (3.125 mg total) by mouth in the morning and 1 tablet (3.125 mg total) in the evening. Take with meals. 180 tablet 3 02/11/20 24 025 Discontinued Active Problems Problem Noted Date [...] Encounters Date Type Department Care Team Description 01/19/2025 11:00 AM EDT Infusion [facility] [address] [place] [address] Maria E Khanna RN Stage 3b chronic kidney disease (HCC) [N18.32] (Primary Dx); Kidney replaced by transplant [Z94.0]; Volume depletion, not otherwise specified [E86.9] 01/19/2025 10:00 AM EDT Office Visit [facility] [address] [place] [address] Zohreh Patel MD Kidney replaced by transplant (Primary Dx); Stage 3b chronic kidney disease (HCC); Diarrhea 01/18/2025 Telephone [facility] [place] [address] [place] [phone] Maria E Khanna RN 01/17/2025 Refill [facility] [address] [place] [phone] Reynold Alberts MD 01/10/2025 Orders Only [facility] [address] [place] [phone] Christi Prieto MA Personal history of immunosuppression [...] Orders Only [facility] [address] [place] [address] Nasrin Foley FNP-C Kidney replaced by transplant (Primary Dx); Stage 3b chronic kidney disease (HCC); Personal history of immunosuppression therapy 10/26/2024 2:45 PM EDT Clinical Support [facility] [address] [place] [address] Nasrin Foley FNP-C Personal history of immunosuppression therapy (Primary Dx); Kidney replaced by transplant; Stage 3b chronic kidney disease (HCC); Hypertension; Anemia in chronic kidney disease from Last 3 Months Immunizations Immunization Administration [...] Pulse 84 01/19/2025 10:21 AM EDT Temperature 36.6 C (97.9 F) 03/25/2021 8:35 AM EST Respiratory Rate 15 09/12/2020 10:5 5 AM EDT Oxygen Saturation 97% 01/02/2021 10: 08 AM EDT Inhaled Oxygen Concentration - - Weight 89.7 kg (197 lb 12.8 oz) 025 10:21 AM EDT Height 177.8 cm (5' 10 ) 04/07/2024 10: 01 AM EST Body Mass Index 28.38 04/07/2024 10:01 AM EST Plan of Treatment Upcoming Encounters Date Type Department Care Team (Late st Contact Info) Description 04/04/2025 10:15 AM EST Office Visit [facility] [address] [place] [address] Reynold Alberts MD [address] [place] [address] [place] [phone] Health Maintenance Due Date Last Done Comments [...] transplant Stage 3b chronic kidney disease (HCC) HEMOGLOBIN A1C Routine 01/15/2025 11:04 AM EDT Personal history of immunosuppression therapy Kidney replaced by transplant Stage 3b chronic kidney disease (HCC) Hypertension Hyperkalemia Anemia in chronic kidney disease Hyperlipidemia, not otherwise specified Vitamin D deficiency, not otherwise specified Idiopathic gout, not otherwise specified Other hyperlipidemia Hypomagnesemia Other iron deficiency anemia Other specified hypoparathyroidism (HCC) Albuminuria, not otherwise specified Poor glycemic control URINALYSIS, COMPLETE Routine 01/15/2025 11:04 AM EDT Personal history of immunosuppression therapy Kidney replaced by transplant Stage 3b chronic kidney disease (HCC) Hypertension Hyperkalemia Anemia in chronic kidney disease Hyperlipidemia, not otherwise specified Vitamin D deficiency, not otherwise specified Idiopathic gout, not otherwise specified Other hyperlipidemia Hypomagnesemia Other iron deficiency anemia Other specified hypoparathyroidism (HCC) Albuminuria, not otherwise specified Poor glycemic control URINE ALBUMIN / CREATININE RATIO Routine 01/15/2025 11:04 AM EDT Personal history of immunosuppression therapy Kidney replaced by transplant Stage 3b chronic kidney disease (HCC) Hypertension Hyperkalemia Anemia in chronic kidney disease Hyperlipidemia, not otherwise specified Vitamin D deficiency, not otherwise specified Idiopathic gout, not otherwise specified Other hyperlipidemia Hypomagnesemia Other iron deficiency anemia Other specified hypoparathyroidism (HCC) Albuminuria, not otherwise specified Poor glycemic control CREATINE KINASE Routine 01/15/2025 11:04 AM EDT Personal history of immunosuppression therapy Kidney replaced by transplant Stage 3b chronic kidney disease (HCC) Hypertension Hyperkalemia Anemia in chronic kidney disease Hyperlipidemia, not otherwise specified Vitamin D deficiency, not otherwise specified Idiopathic gout, not otherwise specified Other hyperlipidemia Hypomagnesemia Other iron deficiency anemia Other specified hypoparathyroidism (HCC) Albuminuria, not otherwise specified Poor glycemic control AST Routine 01/15/2025 11:04 AM EDT Personal history of immunosuppression therapy Kidney replaced by transplant Stage 3b chronic kidney disease (HCC) Hypertension Hyperkalemia Anemia in chronic kidney disease Hyperlipidemia, not otherwise specified Vitamin D deficiency, not otherwise specified Idiopathic gout, not otherwise specified Other hyperlipidemia Hypomagnesemia Other iron deficiency anemia Other specified hypoparathyroidism (HCC) Albuminuria, not otherwise specified Poor glycemic control ALT Routine 01/15/2025 11:04 AM EDT Personal history of immunosuppression therapy Kidney replaced by transplant Stage 3b chronic kidney disease (HCC) Hypertension Hyperkalemia Anemia in chronic kidney disease Hyperlipidemia, not otherwise specified Vitamin D deficiency, not otherwise specified Idiopathic gout, not otherwise specified Other hyperlipidemia Hypomagnesemia Other iron deficiency anemia Other specified hypoparathyroidism (HCC) Albuminuria, not otherwise specified Poor glycemic control PTH, INTACT Routine 01/15/2025 11:04 AM EDT Personal history of immunosuppression therapy Kidney replaced by transplant Stage 3b chronic kidney disease (HCC) Hypertension Hyperkalemia Anemia in chronic kidney disease Hyperlipidemia, not otherwise specified Vitamin D deficiency, not otherwise specified Idiopathic gout, not otherwise specified Other hyperlipidemia Hypomagnesemia Other iron deficiency anemia Other specified hypoparathyroidism (HCC) Albuminuria, not otherwise specified Poor glycemic control IRON PANEL (FE, TIBC, TSAT) Routine 01/15/2025 11:04 AM EDT Personal history of immunosuppression therapy Kidney replaced by transplant Stage 3b chronic kidney disease (HCC) Hypertension Hyperkalemia Anemia in chronic kidney disease Hyperlipidemia, not otherwise specified Vitamin D deficiency, not otherwise specified Idiopathic gout, not otherwise specified Other hyperlipidemia Hypomagnesemia Other iron deficiency anemia Other specified hypoparathyroidism (HCC) Albuminuria, not otherwise specified Poor glycemic control FERRITIN Routine 01/15/2025 11:04 AM EDT Personal history of immunosuppression therapy Kidney replaced by transplant Stage 3b chronic kidney disease (HCC) Hypertension Hyperkalemia Anemia in chronic kidney disease Hyperlipidemia, not otherwise specified Vitamin D deficiency, not otherwise specified Idiopathic gout, not otherwise specified Other hyperlipidemia Hypomagnesemia Other iron deficiency anemia Other specified hypoparathyroidism (HCC) Albuminuria, not otherwise specified Poor glycemic control MAGNESIUM Routine 01/15/2025 11:04 AM EDT Personal history of immunosuppression therapy Kidney replaced by transplant Stage 3b chronic kidney disease (HCC) Hypertension Hyperkalemia Anemia in chronic kidney disease Hyperlipidemia, not otherwise specified Vitamin D deficiency, not otherwise specified Idiopathic gout, not otherwise specified Other hyperlipidemia Hypomagnesemia Other iron deficiency anemia Other specified hypoparathyroidism (HCC) Albuminuria, not otherwise specified Poor glycemic control LIPID PANEL Routine 01/15/2025 11:04 AM EDT Personal history of immunosuppression therapy Kidney replaced by transplant Stage 3b chronic kidney disease (HCC) Hypertension Hyperkalemia Anemia in chronic kidney disease Hyperlipidemia, not otherwise specified Vitamin D deficiency, not otherwise specified Idiopathic gout, not otherwise specified Other hyperlipidemia Hypomagnesemia Other iron deficiency anemia Other specified hypoparathyroidism (HCC) Albuminuria, not otherwise specified Poor glycemic control URIC ACID Routine 01/15/2025 11:04 AM EDT Personal history of immunosuppression therapy Kidney replaced by transplant Stage 3b chronic kidney disease (HCC) Hypertension Hyperkalemia Anemia in chronic kidney disease Hyperlipidemia, not otherwise specified Vitamin D deficiency, not otherwise specified Idiopathic gout, not otherwise specified Other hyperlipidemia Hypomagnesemia Other iron deficiency anemia Other specified hypoparathyroidism (HCC) Albuminuria, not otherwise specified Poor glycemic control VITAMIN D 25 HYDROXY Routine 01/15/2025 11:04 AM EDT Personal history of immunosuppression therapy Kidney replaced by transplant Stage 3b chronic kidney disease (HCC) Hypertension Hyperkalemia Anemia in chronic kidney disease Hyperlipidemia, not otherwise specified Vitamin D deficiency, not otherwise specified Idiopathic gout, not otherwise specified Other hyperlipidemia Hypomagnesemia Other iron deficiency anemia Other specified hypoparathyroidism (HCC) Albuminuria, not otherwise specified Poor glycemic control CBC AND DIFFERENTIAL Routine 01/15/2025 11:04 AM EDT Personal history of immunosuppression therapy Kidney replaced by transplant Stage 3b chronic kidney disease (HCC) Hypertension Hyperkalemia Anemia in chronic kidney disease Hyperlipidemia, not otherwise specified Vitamin D deficiency, not otherwise specified Idiopathic gout, not otherwise specified Other hyperlipidemia Hypomagnesemia Other iron deficiency anemia Other specified hypoparathyroidism (HCC) Albuminuria, not otherwise specified Poor glycemic control RENAL FUNCTION PANEL Routine 01/15/2025 11:04 AM EDT Personal history of immunosuppression therapy Kidney replaced by transplant Stage 3b chronic kidney disease (HCC) Hypertension Hyperkalemia Anemia in chronic kidney disease Hyperlipidemia, not otherwise specified Vitamin D deficiency, not otherwise specified Idiopathic gout, not otherwise specified Other hyperlipidemia Hypomagnesemia Other iron deficiency anemia Other specified hypoparathyroidism (HCC) Albuminuria, not otherwise specified Poor glycemic control MYCOPHENOLIC ACID AND METABO. Routine 01/15/2025 11:04 AM EDT Personal history of immunosuppression therapy Kidney replaced by transplant Stage 3b chronic kidney disease (HCC) Hypertension Hyperkalemia Anemia in chronic kidney disease Hyperlipidemia, not otherwise specified Vitamin D deficiency, not otherwise specified Idiopathic gout, not otherwise specified Other hyperlipidemia Hypomagnesemia Other iron deficiency anemia Other specified hypoparathyroidism (HCC) Albuminuria, not otherwise specified Poor glycemic control TACROLIMUS, HIGHLY SENSITIVE, LC/MS/MS Routine 01/15/2025 11:04 AM EDT Personal history of immunosuppression therapy Kidney replaced by transplant Stage 3b chronic kidney disease (HCC) Hypertension Hyperkalemia Anemia in chronic kidney disease Hyperlipidemia, not otherwise specified Vitamin D deficiency, not otherwise specified Idiopathic gout, not otherwise specified Other hyperlipidemia Hypomagnesemia Other iron deficiency anemia Other specified hypoparathyroidism (HCC) Albuminuria, not otherwise specified Poor glycemic control MICROSCOPIC EXAMINATION - DO NOT USE Routine 01/15/2025 11:04 AM EDT FERRITIN Routine 11/29/2024 10:44 AM EDT Kidney [...] NOT USE Routine 11/29/2024 10:44 AM EDT from Last 3 Months Results * CMV PCR Quantitative (01/22/2025 11:27 AM EDT) CMV Quant DNA PCR Negative Negative IU/mL [facility] Comment: No CMV DNA detected. The quantitative range of this assay is 200 to 1 million IU/mL. Log 10 CMV QN DNA Plasma CANCELED log10 IU/mL [facility] Comment: Unable to calculate result since non-numeric result obtained for component test. Result canceled by the ancillary. Blood Venous blood / Unknown 01/22/2025 11:27 AM EDT 01/22/2025 Reynold Alberts MD LAB BLOOD ORDERABLES Edite d Result - Final [facility] [address] [place] [phone] * (ABNORMAL) Magnesium (01/22/2025 11:27 AM EDT) Only the most recent of2 resultswithin the time period is included. Pathologist [facility] Magnesium 1.3(L) 1.6 - 2.3 mg/dL [facility] Blood Venous blood / Unknown 01/22/2025 11:27 AM EDT 01/22/2025 Reynold Alberts MD LAB BLOOD ORDERABLES Final Result [facility] [address] [place] [address] * (ABNORMAL) Renal function panel (01/22/2025 11:27 AM EDT) Only the most recent of3 resultswithin the time period is included. Glucose 95 70 - 99 mg/dL [facility] BUN 35(H) 8 - 27 mg/dL [facility] Creatinine 2.26(H) 0.76 - 1.27 mg/dL [facility] eGFR CKD-EPI CR 2020 30(L) >59 mL/min/1.7 3 [facility] BUN/Creatinine Ratio 15 10 - 24 [facility] Sodium 139 134 - 144 mmol/L [facility] Potassium 5.2 3.5 - 5.2 mmol/L [facility] Chloride 110(H) 96 - 106 mmol/L [facility] Bicarbonate (CO2) 15(L) 20 - 29 mmol/L [facility] Comment:Verified by repeat analysis Calcium 8.6 8.6 - 10.2 mg/dL [facility] Albumin 3.9 3.8 - 4.8 g/dL [facility] Phosphorus 3.0 2.8 - 4.1 mg/dL [facility] Blood Venous blood / Unknown 01/22/2025 11:27 AM EDT 01/22/2025 us Reynold Alberts MD LAB BLOOD ORDERABLES Final Result [facility] [address] [place] [address] * Tacrolimus, Highly Sensitive, LC/MS/MS (01/15/2025 11:04 AM EDT) Only the most recent of2 resultswithin the time period is included. Pathologist [facility] Tacrolimus by Immunoassay 10.8 5.0 - 20.0 ng/mL [facility] Comment: Detection Limit = 0.8 ng/mL Target [...] recommended. Tacrolimus assay performed by [facility]. 01/15/2025 11:0 4 AM EDT 01/15/2025 Reynold Alberts MD LAB BLOOD ORDERABLES Final Result [facility] [address] [place] [address] * (ABNORMAL) Urinalysis, Complete w/reflex to Culture (01/15/2025 11:04 AM EDT) Only the most recent of2 resultswithin the time period is included. [facility] Specific [place], Urine 1.020 1.005 - 1.030 [facility] pH Urine 5.5 5.0 - 7.5 [facility] Color, Urine Yellow Yellow [facility] Appearance Urine Clear Clear [facility] [phone] WBC Esterase Urine Negative Negative [facility] [phone] Protein, Ur 1+(A) Negative/Tra ce [facility] [phone] Glucose, Ur Negative Negative [facility] [phone] Ketones, Urine Negative Negative [facility] [phone] Blood Urine Negative Negative [facility] Bilirubin Urine Negative Negative [facility] Urobilinogen Urine 0.2 0.2 - 1.0 mg/dL [facility] [phone] Nitrite, Urine Negative Negative [facility] Microscopic Examination See below: [facility] [phone] Comment:Microscopic was mary cated and was performed. URINALYSIS REFLEX Comment [facility] [phone] Comment:This specimen will n ot reflex to a Urine Culture. Urine 01/15/2025 11:0 4 AM EDT 01/15/2025 Reynold Alberts MD LAB URINE ORDERABLES Final Result Performing Organization Address City/[facility]/ZIP Co de Phone Number [facility] [address] [place] [address] * (ABNORMAL) Mycophenolic Acid and Metabo. (01/15/2025 11:04 AM EDT) Mycophenolic Acid 4.2(HH) 1.0 - 3.5 ug/mL [facility] Mycophenolic Acid Glucuronide 109(H) 35 - 100 ug/mL [facility] Blood 01/15/2025 11:0 4 AM EDT 01/15/2025 Narrative [facility] - 01/18/2025 2:05 AM EDT Test(s) 213843-[id number] Acid; 685348- Mycophenolic Acid Glucuronide was developed and its performance characteristics determined by [employer] [facility]. It has not been cleared or approved by the Food and Drug Administration. Reynold Alberts MD LAB BLOOD ORDERABLES Final Result Performing Organization Address City/[facility]/ZIP Co de Phone Number [facility] [address] [place] [phone] * Microscopic Examination (01/15/2025 11:04 AM EDT) Only the most recent of2 resultswithin the time period is included. WBC, Urine None seen 0 - 5 /hpf [facility] RBC, Urine None seen 0 - 2 /hpf [facility] Squamous Epithelial, Urine 0-10 0 - 10 /hpf [facility] Casts None seen None seen /lpf [facility] Bacteria, Urine None seen None seen/Few [facility] 01/15/2025 11:0 4 AM EDT 01/15/2025 Reynold Alberts MD LAB MICROBIOLOGY - GENERAL ORDERABLES Final Result Performing Organization Address City/[facility] Co de Phone Number [facility] [address] [place] [address] * Iron Panel (Fe, TIBC, TSAT) (01/15/2025 11:04 AM EDT) Only the most recent of2 resultswithin the time period is included. TIBC 267 250 - 450 ug/dL [facility] UIBC 167 111 - 343 ug/dL [facility] Iron 100 38 - 169 ug/dL [facility] Iron Saturation (TSat) 37 15 - 55 % [facility] Blood 01/15/2025 11:0 4 AM EDT 01/15/2025 Reynold Alberts MD LAB BLOOD ORDERABLES Final Result Performing Organization Address City/[facility]/ZIP Co de Phone Number [facility] [address] [place] [address] * Urine Albumin / Creatinine Ratio (01/15/2025 11:04 AM EDT) Only the most recent of2 resultswithin the time period is included. Creatinine, Ur 157.5 Not Estab. mg/dL [facility] Albumin, Urine 19.6 Not Estab. ug/mL [facility] Albumin/Creatin ine Ratio 12 0 - 29 mg/g creat [facility] Comment: Normal: 0 - 29 Moderately increased: 30 - 300 Severely increased: >300 Urine 01/15/2025 11:0 4 AM EDT 01/15/2025 Reynold Alberts MD LAB URINE ORDERABLES Final Result [facility] [address] [place] [address] * Vitamin D 25 Hydroxy (01/15/2025 11:04 AM EDT) Vitamin D, 25-OH, Total 32.7 30.0 - 100.0 ng/mL [facility] Comment: Vitamin D deficiency has been defined by the [place] [employer] and an Endocrine Society practice guideline as a level of serum 25-OH vitamin D less than 20 ng/mL (1,2). The Endocrine Society went on to further define vitamin D insufficiency as a level between 21 and 29 ng/mL (2). 1. IOM ([place] [employer]). 2010. Dietary reference intakes for calcium and D. [place]: The National Academies Press. 2. Domonique MF, Sonali [place], Maria G-Robel OCONNELL, et al. Evaluation, treatment, and prevention of vitamin D deficiency: an Endocrine Society clinical practice guideline. JCEM. 2010; 96(7):1911-30. Blood 01/15/2025 11:0 4 AM EDT 01/15/2025 Reynold Alberts MD LAB BLOOD ORDERABLES Final Result [facility] [address] [place] [address] * (ABNORMAL) CBC and Differential (01/15/2025 11:04 AM EDT) Only the most recent of2 resultswithin the time period is included. WBC 7.4 3.4 - 10.8 x10E3/uL [facility] RBC 3.29(L) 4.14 - 5.80 x10E6/uL [facility] Hemoglobin 10.0(L) 13.0 - 17.7 g/dL [facility] Hematocrit 32.3(L) 37.5 - 51.0 % [facility] MCV 98(H) 79 - 97 fL [facility] MCH 30.4 26.6 - 33.0 pg [facility] MCHC 31.0(L) 31.5 - 35.7 g/dL [facility] RDW 14.4 11.6 - 15.4 % [facility] Platelets 337 150 - 450 x10E3/uL [facility] Neutrophils Relative 73 Not Estab. % [facility] Lymphocytes Relative 15 Not Estab. % [facility] Monocytes 10 Not Estab. % [facility] Eosinophils Relative 2 Not Estab. % [facility] Basophils Relative 0 Not Estab. % [facility] Neutrophils Absolute 5.4 1.4 - 7.0 x10E3/uL [facility] Lymphocytes Absolute 1.1 0.7 - 3.1 x10E3/uL [facility] Monocytes Absolute 0.8 0.1 - 0.9 x10E3/uL [facility] Eosinophils Absolute 0.1 0.0 - 0.4 x10E3/uL [facility] Basophils Absolute 0.0 0.0 - 0.2 x10E3/uL [facility] Immature Granulocytes 0 Not Estab. % [facility] Immature Grans (Absolute) 0.0 0.0 - 0.1 x10E3/uL [facility] Blood 01/15/2025 11:0 4 AM EDT 01/15/2025 Reynold Alberts MD LAB BLOOD ORDERABLES Final Result Performing Organization Address City/[facility]/ZIP Co de Phone Number [facility] [address] [place] [address] * (ABNORMAL) Uric Acid (01/15/2025 11:04 AM EDT) Uric Acid 8.9(H) 3.8 - 8.4 mg/dL [facility] Comment:Therapeutic target f or gout patients: <6.0 Blood 01/15/2025 11:0 4 AM EDT 01/15/2025 Reynold Alberts MD LAB BLOOD ORDERABLES Final Result [facility] [address] [place] [address] * ALT (01/15/2025 11:04 AM EDT) ALT (SGPT) 7 0 - 44 IU/L [facility] Blood 01/15/2025 11:0 4 AM EDT 01/15/2025 Reynold Alberts MD LAB BLOOD ORDERABLES Final Result Performing Organization Address City/[facility]/ZIP Co de Phone Number [facility] [address] [place] [address] * AST (01/15/2025 11:04 AM EDT) AST (SGOT) 10 0 - 40 IU/L [facility] Blood 01/15/2025 11:0 4 AM EDT 01/15/2025 Reynold Alberts MD LAB BLOOD ORDERABLES Final Result Performing Organization Address [facility] Co de Phone Number [facility] [address] [place] [address] * PTH, Intact (01/15/2025 11:04 AM EDT) PTH 60 15 - 65 pg/mL [facility] Blood 01/15/2025 11:0 4 AM EDT 01/15/2025 Reynold Alberts MD LAB BLOOD ORDERABLES Final Result Performing Organization Address City/[facility] Co de Phone Number [facility] [address] [place] [address] * (ABNORMAL) Hemoglobin A1c (01/15/2025 11:04 AM EDT) Hemoglobin A1C 5.8(H) 4.8 - 5.6 % [facility] Comment: Prediabetes: 5.7 - 6.4 Diabetes: >6.4 Glycemic control for adults with diabetes: <7.0 Blood Venous blood / Unknown 01/15/2025 11:04 AM EDT 01/15/2025 Reynold Alberts MD LAB BLOOD ORDERABLES Final Result Performing Organization Address City/[facility]/ZIP Co de Phone Number [facility] [address] [place] [address] * Ferritin (01/15/2025 11:04 AM EDT) Only the most recent of2 resultswithin the time period is included. Ferritin 101 30 - 400 ng/mL [facility] Blood 01/15/2025 11:0 4 AM EDT 01/15/2025 Reynold Alberts MD LAB BLOOD ORDERABLES Final Result Performing Organization Address [facility] Co de Phone Number [facility] [address] [place] [address] * (ABNORMAL) CK (01/15/2025 11:04 AM EDT) Creatine Kinase (CK/CPK) 34(L) 41 - 331 U/L [facility] Blood 01/15/2025 11:0 4 AM EDT 01/15/2025 Reynold Alberts MD LAB BLOOD ORDERABLES Final Result Performing Organization Address City/[facility]/ZIP Co de Phone Number [facility] [address] [place] [address] * (ABNORMAL) Lipid panel (01/15/2025 11:04 AM EDT) Cholesterol 131 100 - 199 mg/dL [facility] Triglycerides 87 0 - 149 mg/dL [facility] HDL 30(L) >39 mg/dL [facility] VLDL Cholesterol Asa 17 5 - 40 mg/dL [facility] LDL Calculated 84 0 - 99 mg/dL [facility] Blood 01/15/2025 11:0 4 AM EDT 01/15/2025 Reynold Alberts MD LAB BLOOD ORDERABLES Final Result [facility] [address] [place] [phone] from Last [address] [place] [address] [place] [address] Care Teams 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
--- OUTSIDE RECORDS SUMMARY | 2025-01-26 16:30 | XMS_ITS | Encounter Summary ---
Author Organization [facility] Address [address] [place] [address] Phone Care Team Providers Care Respite Worker Name Role Phone GordonForrest gilliam LENA Primary Care Provider [phone] Encounter Details Date Type Department Care Team (Late st Contact Info) Description 11/19/2022 Documentation Only [facility] [address] [place] [place] [phone] Darrell Parekh PA [address] [place] [address] [place] [address] Social History Tobacco Use Types [...] Visit [facility] [address] [place] [phone] Reynold Alberts MD [address] [place] [address] [place] [phone] documented as of this encounter Visit Diagnoses Not on filedocumented in this encounter Care Teams Respite Worker Relationship Specialty Start Date End Date Forrest Ayoub NP [facility] [place] [address] PCP - General Nurse Practitioner 11/27/19 documented as of this encounter
--- OUTSIDE RECORDS SUMMARY | 2025-01-26 16:30 | XMS_ITS | Clinical Summary ---
Author Organization [facility] Address [address] [place] [address] Care Team Providers Care Movie Machine Operator Name Role Phone Pcp, No Primary Care [...] MGD MEDICARE OUT OF NETWORK Care Teams Movie Machine Operator Relationship Specialty Start Date End Date Pcp, No [address] [place] [address] PCP - General 08/20/21
== END 2025-01-26 16:28 | disposition home or self-care (01) ==
LOC: HO.CT 16:27
PROVIDERS: PCP Nurse Practitioner Family; Visit Provider Nurse Practitioner Family
DX: J06.9 Acute upper respiratory infection, unspecified (principal); J15.9 Unspecified bacterial pneumonia; J44.9 Chronic obstructive pulmonary disease, unspecified
CPT/HCPCS: 71250

== ENCOUNTER → 2025-01-26 16:45 | Outpatient (BNV) | payer MEDICARE, SELFPAY | PROVIDERS: PCP Nurse Practitioner Family; Visit Provider Radiology Diagnostic Radiology | DX: J84.9 Interstitial pulmonary disease, unspecified (principal); I25.10 Atherosclerotic heart disease of native coronary artery without angina pectoris; N26.1 Atrophy of kidney (terminal); K44.9 Diaphragmatic hernia without obstruction or gangrene | CPT/HCPCS: 71250 ==

== ENCOUNTER 2025-03-14 10:38 | Outpatient (AMB) | payer MEDICARE, SELFPAY ==
[2025-03-14 10:42] VITALS: BP 102/56; PULSE 83; O2SAT 98; BMI 28.7
--- NOTE | 2025-03-14 10:42 | MHC.OFFVIS ---
Vital Signs 03/14/25 10:42 Height 5 ft 10 in Weight 200 lb BMI 28.7 BP 102/56 L Blood Pressure Location Lt brachial Position Sitting Pulse 83 Pulse Source Pulse Oximeter Pulse Oximetry (%) 98 Oxygen Delivery Method Room Air Intake Visit Reasons: Abnormal CT scan Allergies clindamycin Allergy (Intermediate, Verified 03/14/25 10:48) Vomiting sertraline Allergy (Intermediate, Verified 03/14/25 10:48) Unknown HPI HPI Abnormal CT scan: Details: 74-year-old gentleman, former 45 pack-year smoker, quit 2008 with underlying COPD and pulmonary fibrosis referred for pulmonary follow-up. Patient had recent CT chest that shows mild fibrosis. His recent pulmonary function test shows mild COPD with moderate to severe decrease in diffusion capacity. His complain of mild dyspnea on exertion intermittently. He is using his trilogy intermittently and albuterol MDI rarely. 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 [facility] Medical History (Updated 03/14/25 @ 11:59 by Vinod Nicholas MD) Emphysema of lung Community acquired bacterial pneumonia Cough Acute respiratory disease COPD (chronic obstructive pulmonary disease) AV fistula ESRD (end stage renal disease) Personal history of immunosupression therapy DVT (deep venous thrombosis) Pulmonary embolism Elevated cholesterol Anemia Roberts esophagus GERD (gastroesophageal reflux disease) Chronic kidney disease Hydronephrosis LOVE (acute kidney injury) HTN (hypertension) Depression Surgical History Hx of foot surgery Hx of kidney transplant H/O right inguinal hernia repair Hx of endoscopy Hx of colonoscopy Social History (Updated 03/14/25 @ 10:52 by Chelsea Nayak [facility]) Housing: House Are you a primary animal care specialist to a significant other at home: No Do you presently have visiting nurse or other home services: No Patient Tobacco Use Status: Former Tobacco user Tobacco use type: Cigarette Years Smoked: started age 15, 1PPD, 46years smoked e-Cigarette/Vaping Use: Never Used Second Hand Smoke Exposure: No service: No Current occupational status: employed Current occupation: [employer] / left hand dominant Current occupational exposures/hazards: Yes Cognitive needs: No Hearing needs: No Vision needs: No Review of Systems Const Denies daytime sleepiness, Denies excessive sweating, Denies fatigue, Denies fever(s), Denies lethargy, Denies malaise, Denies night sweats, Denies snoring and Denies weight loss Eyes Denies blurry vision and Denies itchy eyes ENT Denies nasal congestion, Denies post nasal drip, Denies sinus pain, Denies sinus pressure and Denies other ( Thrush) Card Denies chest pain, Denies pedal edema, Denies dyspnea, Reports dyspnea on exertion, Denies orthopnea and Denies paroxysmal nocturnal dyspnea Resp Denies cough, Denies hemoptysis, Denies excessive phlegm production, Denies dyspnea, Reports dyspnea on exertion, Denies snoring and Denies wheezing GI Denies abdominal pain and Denies heartburn Musc Denies myalgias, Denies arthralgias and Denies joint swelling Skin/Breast Denies rash Neuro Denies memory loss and Denies seizure-like activity Psych Denies abnormal sleep pattern, Denies anxiety and Denies memory loss Endo Denies excessive sweating, Denies fatigue and Denies heat intolerance Kirit/Lymph Denies easy bruising Aller/Immun Denies itchy eyes, Denies seasonal rhinorrhea and Denies wheezing Physical Exam Vital Signs: Last Vital Signs Pulse 83 03/14/25 10:42 BP 102/56 L 03/14/25 10:42 Pulse Ox 98 03/14/25 10:42 Oxygen Delivery Method Room Air 03/14/25 10:42 BMI result Body Mass Index 28.7 Const General: no acute distress and alert Nutritional Appearance: not obese Orientation/consciousness: Other orientation findings ( oriented) HEENT Head: Yes atraumatic Eyes General: appearance normal, both eyes and all related structures Sclerae: sclerae normal EOM: EOMs intact bilaterally Neck Neck: Yes supple Lymphatic: no lymphadenopathy noted Resp Effort & Inspection: normal respiratory effort and no use of accessory muscles Auscultation: clear to auscultation bilaterally Cardio Rate: regular rate Rhythm: regular rhythm Heart sounds: no gallops, no murmurs and no rubs Skin General skin exam: other ( warm) Extrem General: No clubbing, No cyanosis and No edema Assessment & Plan Assessment & Plan (1) COPD (chronic obstructive pulmonary disease): Code(s): J44.9 - Chronic obstructive pulmonary disease, unspecified Category: Medical (2) Pulmonary fibrosis: Code(s): J84.10 - Pulmonary fibrosis, unspecified Category: Medical Plan Combination of pulmonary fibrosis with moderate decrease in diffusion capacity and mild COPD. Patient has been encouraged to use his Trelegy daily. Continue albuterol MDI as needed. Will repeat CT chest in 12 months. Coding Level of Care Code New Pt Level 4 (22182) Diagnoses COPD (chronic obstructive pulmonary disease) J44.9 Pulmonary fibrosis J84.10
--- OUTSIDE RECORDS SUMMARY | 2025-03-14 20:51 | XMS_ITS | Patient Health Record ---
Author Organization [facility] Address [address] [place] [phone] Care Team Providers Care Contribution Solicitor Name Role Phone AALIYAH KHAN Primary Care Provider Galo Cohen Jr Unavailable [phone] Allergies Allergen (clinical drug ingredient) Drug/Non Drug Allergy documented on EMR Reaction Allergy Type Onset Date Status clindamycin Clindamycin HCl Unknown Drug Allergy Active Reason For Referral No Information Medications Medication SIG (Take, Route, Frequency, Duration) Notes Start Date End Date Status predniSONE 20 MG Tablet Orally Active MiraLax (colon prep) 8.3 ounce (238) grams mixed with Gatorade or Crystal Light orally begin at 5:00 p.m. the day before the procedure; Duration: 1 day 02/01/2020 Active Famotidine 20 MG Tablet Orally Active amLODIPine Besylate 10 MG Tablet Orally Active Pantoprazole Sodium 40 MG Tablet Delayed Release TAKE TABLET ONE TO TWO TIMES DAILY; Duration: 90 days Active clonazePAM 0.5 MG Tablet 1 tablet at bed time Orally Once a day/as needed Active Senokot 4 GUMMIES Once a day Active Carvedilol 3.125 MG Tablet Orally Active Retacrit 74180 UNIT/ML Solution Injection Active Vitamin D-3 25 MCG (1000 UT) Capsule Orally Active Vitamin C 500 MG Tablet Orally Active Immunizations Vaccine Route Administration Date Status Comme nts Influenza Unknown 01/25/2020 Administered Social History Tobacco Use: Social History Observation Description Date Details (start date - stop date) Never Smoker NA - NA Social History Drugs/Alcohol: Social Info Question Answer Notes Alcohol Screen Did you have a drink containing alcohol in the past year? 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 [facility] [address] [place] [address] 05/22/2024 Galo Pang Jr Plan Of Treatment Future Test Test Name Order Date UPPER GI ENDOSCOPY 02/01/2020 COLONOSCOPY 02/01/2020 Insurance Providers Payer Name Payer Address Payer Phone Subscriber Number Group Number Insured Name Patient Relationship to Insured Coverage Start Date Coverage End Date [facility] [address] [place], [place] [id number] [phone] [id number] GRACY VILLANUEVA Self - patient is the insured Medical (General) History Medical History History ICD Code stage 5 kidney ds COPD depression Surgical History Surgery Date(Month/Year) toes vericose veins
== END 2025-03-14 11:15 | disposition home or self-care (01) ==
PROVIDERS: PCP Nurse Practitioner Family; Referring Provider Nurse Practitioner Family; Visit Provider Internal Medicine Pulmonary Disease
DX: J44.9 Chronic obstructive pulmonary disease, unspecified (principal); J84.10 Pulmonary fibrosis, unspecified
CPT/HCPCS: 99214

== ENCOUNTER → 2025-03-14 10:38 | Outpatient (BNVA) | payer MEDICARE, SELFPAY | PROVIDERS: PCP Nurse Practitioner Family; Referring Provider Nurse Practitioner Family; Visit Provider Internal Medicine Pulmonary Disease | DX: Z71.2 Person consulting for explanation of examination or test findings (principal); J44.9 Chronic obstructive pulmonary disease, unspecified; J84.10 Pulmonary fibrosis, unspecified | CPT/HCPCS: 99212 ==

== ENCOUNTER 2025-04-05 09:24 | Outpatient (REF) | payer MEDICARE, SELFPAY ==
[2025-04-05 14:20] LABS: MANUAL DIFF FLAG NO
[2025-04-05 14:26] LABS: Hematocrit 33.1 % (42.0-52.0); Hemoglobin 10.1 g/dl (14.0-18.0); Imm Gran Abs Auto 0.02 X10*3/uL (0.00-0.03); Imm Gran Pct Auto 0.3 % (0.0-0.4); Lymphocytes Absolute Auto 1.0 X10*3/uL (1.2-4.9); Mean Corpuscular HGB Conc 30.5 g/dl (31.0-36.0); Mean Corpuscular Hemoglobin 30.2 pg (27.0-33.0); Mean Corpuscular Volume 99.1 fL (80.0-98.0); NRBC Abs Auto 0.000 X10*3/uL (0.0-0.012); NRBC Pct Auto 0.0 /100WBC (0.0-0.2); Platelet Count 234 X10*3/uL (160-400); Red Blood Count 3.34 X10*6/uL (4.60-5.80); White Blood Count 7.4 X10*3/uL (4.8-10.8)
[2025-04-05 14:54] LABS: Alanine Aminotransferase < 6 U/L (0-40); Albumin Level 4.0 g/dL (3.5-5.0); Alkaline Phosphatase 76 U/L (39-117); Anion Gap 12 (12-20); Aspartate Amino Transferase 25 U/L (5-37); Blood Urea Nitrogen 39 mg/dL (9-16); Calcium 8.9 mg/dL (8.4-10.2); Carbon Dioxide 22 mmol/L (22-29); Chloride 114 mmol/L (96-108); Cholesterol 105 mg/dL (<200); Estimated Glomerular Filt Rate 28; HDL Cholesterol 38 mg/dL (>40); Potassium 5.0 mmol/L (3.3-5.1); Sodium 143 mmol/L (135-145); Total Protein 6.7 g/dL (6.5-8.0); Triglycerides 59 mg/dL (<150)
== END 2025-04-05 09:25 ==
LOC: HO.HMGCLDS 09:24
PROVIDERS: PCP Nurse Practitioner Family; Visit Provider Nurse Practitioner Family
DX: I25.10 Atherosclerotic heart disease of native coronary artery without angina pectoris (principal); J44.9 Chronic obstructive pulmonary disease, unspecified; J15.9 Unspecified bacterial pneumonia; J06.9 Acute upper respiratory infection, unspecified; E78.5 Hyperlipidemia, unspecified
CPT/HCPCS: 36415; 80053; 80061; 85025

== ENCOUNTER 2025-04-10 11:01 | Outpatient (REF) | payer MEDICARE, SELFPAY | END 2025-04-10 11:02 | disposition home or self-care (01) | LOC: HO.HMGCLDS 11:01 | PROVIDERS: PCP Nurse Practitioner Family; Visit Provider Nurse Practitioner Family | DX: Z00.00 Encounter for general adult medical examination without abnormal findings (principal); Z12.5 Encounter for screening for malignant neoplasm of prostate; Z23 Encounter for immunization; Z79.82 Long term (current) use of aspirin; Z79.899 Other long term (current) drug therapy | CPT/HCPCS: 36415; 84153; 84443; 90471; 90677; 96127; 99397 ==

== ENCOUNTER 2025-04-10 11:01 | Outpatient (AMB) | payer MEDICARE, SELFPAY ==
--- NOTE | 2025-04-10 11:05 | MHC.PC.OV ---
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 Required: No Accompanied by: Self / Same As Patient Allergies clindamycin Allergy (Intermediate, Verified 04/10/25 11:08) Vomiting sertraline Allergy (Intermediate, Verified 04/10/25 11:08) Unknown Medication List - Last Reconciled 04/10/25 by Forrest Ayoub [facility] albuterol sulfate 90 mcg/actuation (Ventolin HFA) 1 puff inhalation QID PRN aspirin (Adult Aspirin Regimen) 81 mg PO DAILY atorvastatin (Lipitor) 20 mg PO BEDTIME carvedilol 3.125 mg PO BID cholecalciferol (vitamin D3) 50 mcg PO 2XW pantoprazole 40 mg PO DAILY Tobacco use date assessed: 04/10/25 Fall risk assessment: No Falls in past year Last assessed Fall Risk: 04/10/25 Dental Screening Dental Screen Date: 04/10/25 Did you have a dental visit in the last 12 months?: Yes Did you have a dental problem in the last 6 months where you did not have access to dental care?: No Was dental information given to patient?: Patient has dentist HPI Annual PE HPI Details History of Present Illness The patient is a 74 year old male presenting for a physical exam. He has a history of a recent skin cancer removal from the vertex of his head and is scheduled for a follow-up with dermatology next week. The dressing from the procedure is to remain in place, according to pt. His medical history is significant for chronic kidney disease and anemia, for which he follows with nephrology. He also follows with pulmonology for an unspecified condition. His recent lab results showed an impressive cholesterol panel, though a TSH and PSA ordered in 2023 were not completed. For health maintenance, he recently received a flu vaccine. Health Maintenance The patient was encouraged to complete his TSH and PSA labs, which were ordered in 2023 but not done. He will be administered the Prevnar vaccine today. Colon screen is up to date Social History Review of Systems - General: Reports feeling great. Denies fevers and chills. - Eyes: Denies blurred vision. - Cardiovascular: Denies chest pain. - Respiratory: Denies increased shortness of breath. - Gastrointestinal: Denies abdominal pain, blood in stool, constipation, and diarrhea. - Psychiatric: Denies suicidal or homicidal ideation. Physical Exam General: Cooperative, healthy appearing, comfortable, no acute distress and well developed Orientation: Patient oriented x3 Limitations: No limitations Head: Large bandage with faint darker shadowing on the crown region related to skin cancer removal. Large papular lesion to left lower facial region Ears: Hearing grossly normal bilaterally Nose: Normal external nose present Face and sinus: Normal facial exam Eyes: Appearance normal, both eyes and all related structures Neck: Normal visual inspection and Yes full ROM Respiratory: Normal respiratory effort and able to speak in complete sentences. Clear to auscultation bilaterally Cardiovascular: Regular rate and rhythm. Normal S1 and S2 GI: Normal to inspection. Soft to palpation and nontender : testicles without masses/lesions and no hernias appreciated Skin: back with several lesions, papular/macular, ranging in size and pigmentation (seborrheic keratosis) Neuro: Patient oriented x3 Extremities: Normal to inspection Results - Labs: Recent labs revealed an impressive cholesterol panel. - Labs: Anemia is present, which is likely related to chronic kidney disease. Plan 1. Follow-Up Care The patient follows with pulmonary, nephrology, and dermatology. He has a dermatology appointment next week for a follow-up on a recent skin cancer removal. He was advised to follow up in six months and contact as needed for questions or concerns. 2. Anemia In Chronic Kidney Disease Anemia was noted on recent labs, likely related to his ongoing kidney disease. He is under the care of nephrology for this condition. 3. History Of Malignant Neoplasm Of Skin The patient had a recent skin cancer removal from his scalp. The dressing is not to be removed until his dermatology follow-up next week. 4. physical exam Discussion Notes I reviewed the patient's overall health status. He reports feeling great and appears to be doing very well. I noted the presence of anemia on his recent labs, which is most likely related to his chronic kidney disease. I encouraged him to complete his outstanding lab work for TSH and PSA today. We discussed immunizations, noting he recently had a flu shot, and I informed him he would receive Prevnar today. I will follow up with him in six months, and he knows how to contact me with any questions. Patient Instructions - Do not remove the bandage on your head. - Follow up with your dermatology appointment next week. - Please get your blood work for thyroid (TSH) and prostate (PSA) done today. - You will receive a Prevnar vaccination today. - Please schedule a follow-up appointment in six months. - Contact the office if you have any questions or concerns. [facility] Medical History Emphysema of lung Community acquired bacterial pneumonia Cough Acute respiratory disease COPD (chronic obstructive pulmonary disease) AV fistula ESRD (end stage renal disease) Personal history of immunosupression therapy DVT (deep venous thrombosis) Pulmonary embolism Elevated cholesterol Anemia Roberts esophagus GERD (gastroesophageal reflux disease) Chronic kidney disease Hydronephrosis LOVE (acute kidney injury) HTN (hypertension) Depression Surgical History Hx of foot surgery Hx of kidney transplant H/O right inguinal hernia repair Hx of endoscopy Hx of colonoscopy Social History Housing: House Are you a primary summer child caregiver to a significant other at home: No Do you presently have visiting nurse or other home services: No Patient Tobacco Use Status: Never used Tobacco Tobacco use type: Cigarette Years Smoked: started age 15, 1PPD, 46years smoked e-Cigarette/Vaping Use: Never Used Second Hand Smoke Exposure: No service: No Current occupational status: employed Current occupation: [employer] / left hand dominant Current occupational exposures/hazards: Yes Cognitive needs: No Hearing needs: No Vision needs: No Questionnaire PHQ-9 Over the last 2 weeks, how often have you been bothered by any of the following problems? 1. Little interest or pleasure in doing things: not at all 2. Feeling down, depressed, or hopeless: not at all 3. Trouble falling or staying asleep, or sleeping too much: not at all 4. Feeling tired or having little energy: not at all 5. Poor appetite or overeating: not at all 6. Feeling bad about yourself - or that you are a failure or have let yourself or your family down: not at all 7. Trouble concentrating on things, such as reading the newspaper or watching television: not at all 8. Moving or speaking so slowly that other people could have noticed. Or the opposite - being so fidgety or restless that you have been moving around a lot more than usual: not at all 9. Thoughts that you would be better off or of hurting yourself in some way: not at all Total score: 0 Depression Screening Interpretation: Negative Depression Screening Done: Yes 91557 - PHQ-9 Billing: Yes Source: Developed by Drs. Demarco Del Cid, Veronika Vanessa, Benjamín Valdez and colleagues, with an educational yrn from [employer]. Thrive Questionnaire Date Thrive assessed: 10/10/24 I am a: Patient What is your living situation today?: I have a steady place to live Within the past 12 months, did the food you bought not last and you didn't have the money to get more?: I choose not to answer this question Within the past 12 months, did you worry whether your food would run out before you got money to buy more?: I choose not to answer this question Do you have trouble paying for medicines?: No Do you have trouble getting transportation to medical appointments?: No Do you have trouble paying your heating and electricity bill?: No Do you have trouble taking care of your child, family member or friend?: No Do you have trouble with day-to-day activities such as bathing, preparing meals, shopping, managing finances, etc.?: No Are you currently unemployed and looking for a job?: I choose not to answer this question Are you interested in more education?: No Please select the resources that you would like help with: None Currently or been in a relationship where the following occur: I choose not to answer THRIVE Score: 0 CYNDI-7 AMB Questionnaire CYNDI-7 Date CYNDI - 7 assessed: 04/10/25 Feeling nervous, anxious, or on edge: 0 = Not at all Not being able to stop or control worryin = Not at all Worrying too much about different things: 0 = Not at all Trouble relaxin = Not at all Being so restless that it is hard to sit still: 0 = Not at all Becoming easily annoyed or irritable: 0 = Not at all Feeling afraid as if something awful might happen: 0 = Not at all Total CYNDI-7 score (0-4 normal; 5-9 mild; 10-14 moderate; 15-21 severe): 0 Source: Developed by Drs. Demarco Del Cid, Veronika Vanessa, Benjamín Valdez and colleagues, with an educational yrn from [employer]. CYNDI-7 Assessment Billing CYNDI-7 Assessment Tool: CYNDI-7 Assessment 09328 Physical exam (Primary Care) Vital Signs: Last Vital Signs Pulse 82 04/10/25 11:07 Resp 16 04/10/25 11:07 BP 108/62 04/10/25 11:07 Pulse Ox 98 04/10/25 11:07 Oxygen Delivery Method Room Air 04/10/25 11:07 BMI result Body Mass Index 29.3 Tobacco/Smoking Status: Tobacco use Status Tobacco use date assessed 04/10/25 04/10/25 11:14 Patient Tobacco Use Status Never used Tobacco 04/10/25 11:14 Tobacco use type Cigarette 04/10/25 11:14 e-Cigarette/Vaping Use Never Used 04/10/25 11:14 PHQ-9: PHQ-9 Score PHQ-9: Total score 0 04/10/25 11:42 Depression Screening Interpretation: Negative Thrive Assessment: Date of Thrive Assessment Date Thrive assessed 10/10/24 04/10/25 11:14 Currently or been in a relationship where the following occur: I choose not to answer Immunizations pneumoc 20-rebecca conj-dip cr(PF) 0.5 mL IM syringe Performing Provider: MELISSA Finnegan Performing Location: [facility] Administered by: Bhavya Burdick MA on 04/10/25 12:00 Dose Route Admin Location Dispensed Lot Number Expiration Date [facility] Rejected Items Clerk 0.5 mL IM Left Deltoid 0.5 mL [id number] 12/25/25 [employer]/PFIZER Total Dispensed Waste 0.5 mL 0 % VIS Given Date VIS Provided VIS Publication Date 04/10/25 Single Vaccine 24 Eligibility Eligibility Date Funding Source Not [facility] Eligible 04/10/25 Private Coding Level of Care Code Est Pt Prev Care >65y(51628) Diagnoses Screening PSA (prostate specific antigen) Z12.5 Physical exam Z00.00 Additional Codes CYNDI-7 Assessment Billing - CYNDI-7 Assessment Tool: CYNDI-7 Assessment 21755 ([id number]) PHQ-9 - 44780 - PHQ-9 Billing: Yes ([id number]) Assessment & Plan Assessment & Plan (1) Screening PSA (prostate specific antigen): Code(s): Z12.5 - Encounter for screening for malignant neoplasm of prostate Category: Medical (2) Physical exam: Code(s): Z00.00 - Encounter for general adult medical examination without abnormal findings Category: Medical Plan . Orders: Orders Prostate Specific Antigen Scr Today Z12.5 - Encounter for screening for malignant neoplasm of prostate TSH reflex Free T4 Today Z00.00 - Encounter for general adult medical examination without abnormal findings Pneumococcal 20 Immunization Today Z23 - Encounter for immunization
[2025-04-10 11:07] VITALS: BP 108/62; PULSE 82; RESP 16; O2SAT 98; BMI 29.3
--- OUTSIDE RECORDS SUMMARY | 2025-04-10 14:32 | XMS_ITS | Patient Health Record ---
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) Active confirmed Problem Abnormal feces (465729508) Abnormal findings in stool (R19.5) Active confirmed Encounters Encounter Location Date Provider Diagnosis [facility] [address] [place] [address] 05/22/2024 Galo Pang Jr Plan Of Treatment Future Test Test Name Order Date UPPER GI ENDOSCOPY 02/01/2020 COLONOSCOPY 02/01/2020 Insurance Providers Payer Name Payer Address Payer Phone Subscriber Number Group Number Insured Name Patient Relationship to Insured Coverage Start Date Coverage End Date [facility] [address] [place], [place] [id number] [phone] [id number] GRACY VILLANUEVA Self - patient is the insured Medical (General) History Medical History History ICD Code stage 5 kidney ds COPD depression Surgical History Surgery Date(Month/Year) toes vericose veins
--- OUTSIDE RECORDS SUMMARY | 2025-04-10 14:32 | XMS_ITS | Clinical Summary ---
Author Organization [facility] Address [address] [place] [address] Care Team Providers Care Data Warehousing Manager Name Role Phone Pcp, No Primary Care [...] ( season) 2024 06/27/2020, 05/30/2020 RSV Vaccine 50 years and older and Patients (1 - 1-dose 75+ series) 10/28/2026 Hepatitis B Vaccines Aged Out No long er eligible based on patient's age to complete this topic Insurance BLUE [employer] MEDICARE OUT OF NETWORK Care Teams Data Warehousing Manager Relationship Specialty Start Date End Date Pcp, No [address] [place] [address] PCP - General 08/20/21
== END 2025-04-10 12:44 | disposition home or self-care (01) ==
LOC: HO.HMCC 11:02
PROVIDERS: PCP Nurse Practitioner Family; Visit Provider Nurse Practitioner Family
DX: Z00.00 Encounter for general adult medical examination without abnormal findings (principal); Z12.5 Encounter for screening for malignant neoplasm of prostate; Z23 Encounter for immunization